=== PATIENT | male | born 1935 | race Caucasian/White ===

== ENCOUNTER 2023-04-14 20:11 | Inpatient (IN) ==
[2023-04-14 21:47] LABS: Albumin Level 3.6 gm/dl (3.4-5.0); Bilirubin,Total 2.1 mg/dl (0.2-1.0); Calcium 9.4 mg/dl (8.6-10.3); Creatinine Clr Calc Pharmacy 85.4 ml/min; Est GFR (African American) 97.7 ml/min; Est GFR (Non-African American) 84.3 ml/min; Globulin 3.5 gm/dl (2.5-4.0); Potassium 4.4 mmol/L (3.5-5.1); Total Protein 7.1 gm/dl (6.0-8.3)
[2023-04-14 21:55] LABS: Magnesium 2.3 mg/dl (1.7-2.4); Phosphorus 3.5 mg/dl (2.5-4.9)
[2023-04-14 22:11] LABS: Thyroid Stimulating Hormone 2.239 uIu/ml (0.300-4.500)
[2023-04-14 22:17] LABS: Basophils # (auto) 0.04 K/uL (0.00-0.20); Basophils % (auto) 0.6 %; Eosinophils # (auto) 0.08 K/uL (0.00-0.50); Eosinophils % (auto) 1.1 %; Hematocrit (blood only) 51.5 % (42.0-52.0); Hemoglobin 16.6 g/dl (14.0-18.0); Immature Granulocytes # (auto) 0.02 K/uL (0.01-0.20); Immature Granulocytes % (auto) 0.3 %; Lymphocytes # (auto) 0.81 K/uL (1.20-3.40); Lymphocytes % (auto) 11.4 %; Mean Corpuscular Hemoglobin 28.7 pg (25.0-34.0); Mean Corpuscular Hgb Conc 32.2 g/dL (32.0-36.0); Mean Corpuscular Volume 89.1 fL (80.0-100.0); Monocytes # (auto) 0.67 K/uL (0.11-0.59); Monocytes % (auto) 9.4 %; Neutrophils % (auto) 77.2 %; Platelet Count 150 K/uL (130-400); RDW Coefficient of Variation 15.4 % (11.5-14.5); RDW Standard Deviation 49.7 fL (36.4-46.3); Red Blood Count 5.78 M/uL (4.70-6.10); White Blood Count 7.12 K/ul (4.8-10.8)
--- NOTE | 2023-04-14 22:24 | Emergency Department Note ---
Impression & Plan Bilateral cellulitis of lower leg, Bullous dermatitis, Edema due to hypervolemia, Edema of scrotum, Edema of penis, CHF (congestive heart failure), Pleural effusion ED Provider Note NAME: LEVY QUINONEZ AGE: 87 SEX: M ARRIVES VIA: Walk-In INFORMANT: Patient ED PROVIDER(S): Pérez Suresh MD CHIEF COMPLAINT: Edema PLAN: Disposition: Admit MEDICAL DECISION MAKING: The patient is a pleasant 87-year-old gentleman with a past medical history of permanent atrial fibrillation not on anticoagulation due to history of rectal bleeding, hypertension, peripheral vascular disease, diastolic CHF, hyperlipidemia, chronic severe bilateral lower extremity lymphedema who presents to the emergency department via walk-in for evaluation of worsening fluid retention in bilateral lower legs where he noticed today that large blisters acutely formed on his lower legs. He reports that his leg swelling has progressively been worsening over the past several months and has been severe for many years. He reports he has been taking his medications as prescribed. He reports he does live alone. He reports that swelling in his penis and scrotum are also severe but feels as though this may have improved from even last week. He reports mild increased shortness of breath and was hypoxic and placed on 3 L nasal cannula by nursing. On my evaluation patient is chronically ill-appearing but no distress, afebrile with stable vital signs. He appears significantly hypervolemic with 3+ bilateral lower extremity pitting edema with mild-moderate erythema and warmth with large anterior pretibial bilateral bullae measuring approximately 15 x 7 cm with clear serous fluid noted within the bullae. Patient has severe edema of his penis and scrotum without significant erythema warmth or tenderness. There is no crepitus. He has severe anasarca of his abdomen which is nontender. He has diminished breath sounds of bilateral lower lung calderon. EKG without overt acute ischemia. WBC, H/H and platelets within normal limits. Chemistry without metabolic acidosis. Lactic acid 1.1, within normal limits. Total bilirubin 2.1, nonspecific and LFTs otherwise normal. High-sensitivity troponin 12.4, within normal limits. BNP is elevated to 50 consistent with the patient's hypervolemia. Procalcitonin is undetectable. TSH within normal limits. Respiratory BioFire was negative. CTA of the chest was negative for pulmonary embolism though note is made of bilateral pleural effusions. Suspected compressive atelectasis seen though pneumonia is not excluded. CT of the abdomen pelvis demonstrates the patient's severe scrotal and penile edema without evidence of gas. Prostate is severely enlarged measuring 5.2 cm. Patient was treated with empiric Zosyn and daptomycin for bilateral lower extremity cellulitis in addition to treatment for his hypervolemia and bolus lymphedema with IV Lasix. Rodney catheter was placed due to need for aggressive diuresis and protection of already fragile skin. Case was discussed with [facility] who will evaluate the patient for admission. Triage Nursing notes reviewed and agree them. Prior/external medical records reviewed Vital Signs: reviewed Differential diagnosis: Cellulitis, abscess, MRSA infection, DVT, necrotizing fasciitis, dermatitis, drug eruption, allergic reaction, as well as other pathologies. ER treatment provided: See below. Diagnostics interpreted by me: ECG: Atrial fibrillation 96 bpm, no ectopy, no overt ST elevation or depression. Cardiac Monitoring: An order for continuous cardiac monitoring was placed and demonstrated Atrial fibrillation 96 bpm, no ectopy. Laboratory studies: See below Imaging studies: See below Consultation(s): Case was discussed with [facility] who will evaluate the patient for admission. HPI: The patient is a pleasant 87-year-old gentleman with a past medical history of permanent atrial fibrillation not on anticoagulation due to history of rectal bleeding, hypertension, peripheral vascular disease, diastolic CHF, hyperlipidemia, chronic severe bilateral lower extremity lymphedema who presents to the emergency department via walk-in for evaluation of worsening fluid retention in bilateral lower legs where he noticed today that large blisters acutely formed on his lower legs. He reports that his leg swelling has progressively been worsening over the past several months and has been severe for many years. He reports he has been taking his medications as prescribed. He reports he does live alone. He reports that swelling in his penis and scrotum are also severe but feels as though this may have improved from even last week. He reports mild increased shortness of breath and was hypoxic and placed on 3 L nasal cannula by nursing. ROS: See above HPI for pertinent positives & negatives. A total of 10 systems reviewed and were otherwise negative. VITALS:See Below PHYSICAL EXAMINATION: GENERAL: Awake, alert, chronically ill-appearing, in no distress, BMI 32.8. HENT: Normocephalic, atraumatic. Oropharynx unremarkable. EYES: Normal conjunctiva. Sclera non-icteric. NECK: Supple. No nuchal rigidity. FROM. No JVD. RESPIRATORY: Diminished breath sounds of bilateral lower lung calderon. CARDIAC: Regular rate, irregular rhythm. Extremities warm and well perfused. Pulses equal. ABDOMEN: Soft, non-distended. No tenderness to palpation. No rebound or guarding. Severe anasarca of his abdomen which is nontender. : Severe edema of his penis and scrotum without significant erythema warmth or tenderness. There is no crepitus. MUSCULOSKELETAL: Chest examination reveals no tenderness. The back is symmetrical on inspection without obvious abnormality. There is no CVA tenderness to palpation. No joint edema. LOWER EXTREMITIES: 3+ bilateral lower extremity pitting edema with mild-moderate erythema and warmth with large anterior pretibial bilateral bullae measuring approximately 15 x 7 cm with clear serous fluid noted within the bullae. NEURO: Normal sensorium. No sensory or motor deficits noted. SKIN: No jaundice noted. Pérez Suresh MD Past Med/Surg History Medical History Lymphedema Atrial fibrillation CHF (congestive heart failure) Hypertension Social History Smoking Status: Former smoker Preferred Language: [place] Feels Safe at Home: Yes Allergies Allergies Allergy/AdvReac Type Severity Reaction Status Date / Time adhesive tape Allergy Unknown skin Verified 04/15/23 02:10 irritation nutmeg oil (Myristica seed Allergy Unknown Unknown Verified 04/15/23 02:10 oil) lisinopril AdvReac Unknown cough Verified 12/24/14 06:28 UNKNOWN BP MEDICATION Allergy Unknown rash at Uncoded 03/18/14 11:52 ankles Home Meds Home Medications Medication Instructions Recorded Confirmed aspirin 81 mg tablet,delayed 81 mg PO DAILY 04/15/23 04/15/23 release atorvastatin 20 mg tablet 20 mg PO QAM 04/15/23 04/15/23 empagliflozin 25 mg tablet 25 mg PO QAM 04/15/23 04/15/23 (Jardiance) furosemide 20 mg tablet 40 mg PO QAM 04/15/23 04/15/23 metoprolol succinate 25 mg 25 mg PO QAM 04/15/23 04/15/23 tablet,extended release 24 hr silver sulfadiazine 1 % topical 1 applic topical DAILY 04/15/23 04/15/23 cream (SSD) tamsulosin 0.4 mg capsule 0.4 mg PO QAM 04/15/23 04/15/23 Results & Data (ED) Vital Signs Vital Signs - 24 hr 04/14/23 20:17 04/14/23 20:25 04/14/23 21:46 Temperature 36.9 C Temperature Source Temporal Artery Scan Pulse Rate 100 H 108 H Pulse Rate from SpO2 Sensor 111 H Respiratory Rate 16 20 Respiratory Effort / Characteristics Respiratory Depth Blood Pressure 150/92 H Blood Pressure Mean 111 Pulse Oximetry 87 L 90 100 Oxygen Delivery Method Room Air Nasal Cannula Oxygen Flow Rate 3 Sepsis Recent Fever Within 48 Hours No Sepsis New/Unexplained Change in Mental Status No Sepsis Action Taken by Nursing No Action Required 04/14/23 21:48 04/14/23 21:50 04/14/23 22:00 Temperature Temperature Source Pulse Rate 99 H 96 H 85 Pulse Rate from SpO2 Sensor 117 H 102 H Respiratory Rate 18 18 Respiratory Effort / Characteristics Respiratory Depth Blood Pressure Blood Pressure Mean Pulse Oximetry 100 100 Oxygen Delivery Method Oxygen Flow Rate Sepsis Recent Fever Within 48 Hours Sepsis New/Unexplained Change in Mental Status Sepsis Action Taken by Nursing 04/14/23 22:00 04/14/23 22:10 04/14/23 22:20 Temperature Temperature Source Pulse Rate 89 88 Pulse Rate from SpO2 Sensor 109 H 102 H Respiratory Rate 24 23 Respiratory Effort / Characteristics Respiratory Depth Blood Pressure 142/106 H Blood Pressure Mean 108 Pulse Oximetry 99 100 Oxygen Delivery Method Oxygen Flow Rate Sepsis Recent Fever Within 48 Hours Sepsis New/Unexplained Change in Mental Status Sepsis Action Taken by Nursing 04/14/23 22:30 04/14/23 22:30 04/14/23 22:40 Temperature Temperature Source Pulse Rate 115 H 93 H Pulse Rate from SpO2 Sensor 110 H 100 H Respiratory Rate 21 21 Respiratory Effort / Characteristics Respiratory Depth Blood Pressure 158/104 H Blood Pressure Mean 110 Pulse Oximetry 100 97 Oxygen Delivery Method Oxygen Flow Rate Sepsis Recent Fever Within 48 Hours Sepsis New/Unexplained Change in Mental Status Sepsis Action Taken by Nursing 04/14/23 22:50 04/14/23 23:00 04/14/23 23:00 Temperature Temperature Source Pulse Rate 109 H 99 H Pulse Rate from SpO2 Sensor 107 H 98 H Respiratory Rate 23 22 Respiratory Effort / Characteristics Respiratory Depth Blood Pressure 144/103 H Blood Pressure Mean 116 Pulse Oximetry 100 100 Oxygen Delivery Method Oxygen Flow Rate Sepsis Recent Fever Within 48 Hours Sepsis New/Unexplained Change in Mental Status Sepsis Action Taken by Nursing 04/14/23 23:10 04/14/23 23:20 04/14/23 23:30 Temperature Temperature Source Pulse Rate 90 96 H 86 Pulse Rate from SpO2 Sensor 98 H 102 H 93 H Respiratory Rate 25 H 23 21 Respiratory Effort / Characteristics Respiratory Depth Blood Pressure Blood Pressure Mean Pulse Oximetry 100 100 100 Oxygen Delivery Method Oxygen Flow Rate Sepsis Recent Fever Within 48 Hours Sepsis New/Unexplained Change in Mental Status Sepsis Action Taken by Nursing 04/14/23 23:30 04/14/23 23:40 04/14/23 23:50 Temperature Temperature Source Pulse Rate 99 H 98 H Pulse Rate from SpO2 Sensor 100 H Respiratory Rate 24 24 Respiratory Effort / Characteristics Respiratory Depth Blood Pressure 151/97 H Blood Pressure Mean 103 Pulse Oximetry 100 Oxygen Delivery Method Oxygen Flow Rate Sepsis Recent Fever Within 48 Hours Sepsis New/Unexplained Change in Mental Status Sepsis Action Taken by Nursing 04/15/23 00:18 04/15/23 00:20 04/15/23 00:20 Temperature Temperature Source Pulse Rate 88 Pulse Rate from SpO2 Sensor 93 H 87 Respiratory Rate 21 Respiratory Effort / Characteristics Respiratory Depth Blood Pressure 147/107 H Blood Pressure Mean 123 Pulse Oximetry 93 94 Oxygen Delivery Method Oxygen Flow Rate Sepsis Recent Fever Within 48 Hours Sepsis New/Unexplained Change in Mental Status Sepsis Action Taken by Nursing 04/15/23 00:30 04/15/23 00:40 04/15/23 00:50 Temperature Temperature Source Pulse Rate 109 H 103 H 90 Pulse Rate from SpO2 Sensor 95 H 110 H 94 H Respiratory Rate 34 H 29 H 34 H Respiratory Effort / Characteristics Respiratory Depth Blood Pressure Blood Pressure Mean Pulse Oximetry 98 98 95 Oxygen Delivery Method Oxygen Flow Rate Sepsis Recent Fever Within 48 Hours Sepsis New/Unexplained Change in Mental Status Sepsis Action Taken by Nursing 04/15/23 01:00 04/15/23 01:01 04/15/23 01:10 Temperature Temperature Source Pulse Rate 85 90 98 H Pulse Rate from SpO2 Sensor Respiratory Rate 33 H 28 H 20 Respiratory Effort / Characteristics Respiratory Depth Blood Pressure Blood Pressure Mean Pulse Oximetry Oxygen Delivery Method Oxygen Flow Rate Sepsis Recent Fever Within 48 Hours Sepsis New/Unexplained Change in Mental Status Sepsis Action Taken by Nursing 04/15/23 01:20 04/15/23 01:30 04/15/23 01:40 Temperature Temperature Source Pulse Rate 99 H 107 H Pulse Rate from SpO2 Sensor Respiratory Rate 21 20 Respiratory Effort / Characteristics Respiratory Depth Blood Pressure 136/88 Blood Pressure Mean 103 Pulse Oximetry Oxygen Delivery Method Oxygen Flow Rate Sepsis Recent Fever Within 48 Hours Sepsis New/Unexplained Change in Mental Status Sepsis Action Taken by Nursing 04/15/23 01:40 04/15/23 01:44 04/15/23 01:58 Temperature Temperature Source Pulse Rate 100 H 99 H Pulse Rate from SpO2 Sensor 104 H 101 H Respiratory Rate 21 21 Respiratory Effort / Characteristics Respiratory Depth Blood Pressure Blood Pressure Mean Pulse Oximetry 94 93 Oxygen Delivery Method Oxygen Flow Rate Sepsis Recent Fever Within 48 Hours Sepsis New/Unexplained Change in Mental Status Sepsis Action Taken by Nursing 04/15/23 02:00 04/15/23 02:00 04/15/23 02:10 Temperature Temperature Source Pulse Rate 120 H Pulse Rate from SpO2 Sensor 101 H Respiratory Rate 22 21 Respiratory Effort / Characteristics Non-Labored Respiratory Depth Normal Blood Pressure Blood Pressure Mean Pulse Oximetry 94 Oxygen Delivery Method Oxygen Flow Rate Sepsis Recent Fever Within 48 Hours Sepsis New/Unexplained Change in Mental Status Sepsis Action Taken by Nursing Laboratory Data Attestation: I reviewed the patient's lab results. 04/15/23 04:47 04/15/23 04:47 Lab Results 04/14/23 04/14/23 04/14/23 Range/Units 21:15 22:06 23:57 WBC 7.12 (4.8-10.8) K/ul RBC 5.78 (4.70-6.10) M/uL Hgb 16.6 (14.0-18.0) g/dl Hct 51.5 (42.0-52.0) % MCV 89.1 (80.0-100.0) fL MCH 28.7 (25.0-34.0) pg MCHC 32.2 (32.0-36.0) g/dL RDW Std Deviation 49.7 H (36.4-46.3) fL RDW Coeff of Ella 15.4 H (11.5-14.5) % Plt Count 150 (130-400) K/uL MPV 10.0 (9.4-12.4) fL Immature Gran % (Auto) 0.3 % Neut % (Auto) 77.2 % Lymph % (Auto) 11.4 % Taliaferro % (Auto) 9.4 % Eos % (Auto) 1.1 % Baso % (Auto) 0.6 % Neut # (Auto) 5.50 (1.40-6.50) K/uL Lymph # (Auto) 0.81 L (1.20-3.40) K/uL Taliaferro # (Auto) 0.67 H (0.11-0.59) K/uL Eos # (Auto) 0.08 (0.00-0.50) K/uL Baso # (Auto) 0.04 (0.00-0.20) K/uL Immature Gran # (Auto) 0.02 (0.01-0.20) K/uL Sodium 139 (136-145) mmol/L Potassium 4.4 (3.5-5.1) mmol/L Chloride 98 (98-107) mmol/L Carbon Dioxide 36 H (21-32) mmol/L Anion Gap 5 (3-11) BUN 28 H (6-23) mg/dl Creatinine 0.70 (0.6-1.4) mg/dl Est Cr Clr Drug Dosing 85.4 ml/min Est GFR ( Amer) 97.7 ml/min Est GFR (Non-Af Amer) 84.3 ml/min BUN/Creatinine Ratio 40.0 H (10-20) Glucose 103 H (70-99(Fasting)) mg/dl Lactate 1.1 (0.4-2.0) mmol/L Calcium 9.4 (8.6-10.3) mg/dl Phosphorus 3.5 (2.5-4.9) mg/dl Magnesium 2.3 (1.7-2.4) mg/dl Total Bilirubin 2.1 H (0.2-1.0) mg/dl AST 19 (13-39) U/L ALT 14 (7-52) U/L Alkaline Phosphatase 103 (34-104) U/L Troponin I High Sens 12.4 (0-20) pg/ml B-Natriuretic Peptide 250 H (0-100) pg/ml Total Protein 7.1 (6.0-8.3) gm/dl Albumin 3.6 (3.4-5.0) gm/dl Globulin 3.5 (2.5-4.0) gm/dl Albumin/Globulin Ratio 1.0 (0.9-2) Procalcitonin < 0.05 (0-0.5) ng/ml TSH 2.239 (0.300-4.500) uIu/ml Adenovirus (PCR) Not Detected (NotDetected) B. pertussis DNA (PCR) Not Detected (NotDetected) B.parapertussis DNA PCR Not Detected (NotDetected) C. pneumoniae DNA (PCR) Not Detected (NotDetected) Coronavirus OC43 (PCR) Not Detected (NotDetected) Coronavirus HKU1 (PCR) Not Detected (NotDetected) Coronavirus 229E (PCR) Not Detected (NotDetected) SARS-CoV-2 (PCR) Not Detected (NotDetected) Coronavirus NL63 (PCR) Not Detected (NotDetected) Human Metapneumovir PCR Not Detected (NotDetected) Influenza Type A (PCR) Not Detected (NotDetected) Influenza Type B (PCR) Not Detected (NotDetected) M. pneumoniae (PCR) Not Detected (NotDetected) Parainfluenza 1 (PCR) Not Detected (NotDetected) Parainfluenza 2 (PCR) Not Detected (NotDetected) Parainfluenza 3 (PCR) Not Detected (NotDetected) Parainfluenza 4 (PCR) Not Detected (NotDetected) RSV (PCR) Not Detected (NotDetected) Entero/Rhino (PCR) Not Detected (NotDetected) Administered Medications Discontinued Medications Furosemide (Furosemide 40 Mg/4 Ml Vial) 40 mg IV ONE ONE Stop: 04/14/23 23:36 Last Admin: 04/15/23 00:19 Dose: 40 mg Documented By: ISAAC Piperacillin Sod/Tazobactam (Sod 4.5 gm/ Dextrose) 100 mls @ 200 mls/hr IV NOW ONE; Protocol Stop: 04/14/23 23:48 Last Infusion: 04/15/23 01:00 Dose: Infused Documented By: Admin: 04/15/23 00:22 Dose: 200 mls/hr Documented By: ISAAC Daptomycin 425 mg/ Syringe 8.5 mls @ 4.25 mls/min IV NOW STA; Protocol Stop: 04/14/23 23:20 Last Admin: 04/15/23 00:25 Dose: 4.25 mls/min Documented By: ISAAC Doxycycline Hyclate 100 mg/ (Dextrose) 100 mls @ 50 mls/hr IV NOW STA Stop: 04/15/23 04:19 Last Admin: 04/15/23 03:00 Dose: 50 mls/hr Documented By: MADISON Ioversol (Optiray 320 125ml) 125 ml IV ONCE ONE Stop: 04/15/23 00:18 Last Admin: 04/15/23 00:17 Dose: 117 ml Documented By: LUCRECIA Ipratropium Sparks (Ipratropium Sparks Neb Soln 0.02% 0.5mg/2.5ml Vial) 0.5 mg INH NOW STA Stop: 04/15/23 02:07 Last Admin: 04/15/23 03:07 Dose: 0.5 mg Documented By: MADISON Levalbuterol HCl (Levalbuterol 1.25 Mg/3 Ml Neb) 1.25 mg NEB NOW STA Stop: 04/15/23 02:07 Last Admin: 04/15/23 03:07 Dose: 1.25 mg Documented By: MADISON Imaging Data Radiologist's Impression: Abdomen/Pelvis CT 04/14/23 23:17 Exam(s): CT ABDOMEN + PELVIS With Contrast IV Amt: 117 ml optiray 320 EXAM: CT Abdomen and Pelvis With Intravenous Contrast CLINICAL HISTORY: Reason for exam: abd pain, edema (include entire scrotum). TECHNIQUE: Axial computed tomography images of the abdomen and pelvis with intravenous contrast. Automated exposure control was utilized for the study. A dose lowering technique was utilized adhering to the principles of ALARA. CONTRAST: Patient received 117 ml optiray 320 of IV contrast COMPARISON: No relevant prior studies available. FINDINGS: Lung bases: Referred to the concomitant chest CT for the lower lung calderon. No consolidation. ABDOMEN: Liver: Unremarkable. No mass. Gallbladder and bile ducts: Unremarkable. No calcified stones. No ductal dilation. Pancreas: Unremarkable. No mass. No ductal dilation. Spleen: Unremarkable. No splenomegaly. Adrenals: Unremarkable. No mass. Kidneys and ureters: Atrophy of the kidneys. No hydronephrosis or delayed nephrogram. Stomach and bowel: Diverticulosis, without acute diverticulitis. No small bowel obstruction. No free intraperitoneal air. PELVIS: Appendix: No findings to suggest acute appendicitis. Bladder: Wall thickening of the urinary bladder, cord of UTI. Urinalysis recommended. Reproductive: Large prostate gland measures 5.2 cm. Severe scrotal and penile edema. Correlate with physical exam. The need for testicular ultrasound should be determined clinically. ABDOMEN and PELVIS: Intraperitoneal space: Unremarkable. No free air. No significant fluid collection. Bones/joints: Degenerative changes of the spine. No acute fracture. No dislocation. Soft tissues: Anasarca. Vasculature: Atherosclerotic changes of the aorta. No abdominal aortic aneurysm. Lymph nodes: Unremarkable. No enlarged lymph nodes. IMPRESSION: 1. Wall thickening of the urinary bladder, cord of UTI. Urinalysis recommended. 2. Large prostate gland measures 5.2 cm. 3. Atrophy of the kidneys. No hydronephrosis or delayed nephrogram. 4. Anasarca. Severe scrotal and penile edema. Correlate with physical exam. The need for testicular ultrasound should be determined clinically. 5. Diverticulosis, without acute diverticulitis. No small bowel obstruction. No free intraperitoneal air. Electronically signed by: Hai Cope MD 04/15/23 00:42 AM Chest CTA 04/14/23 23:17 Exam(s): CTA CHEST IV Amt: 117 ml optiray 320 EXAM: CT Angiography Chest With Intravenous Contrast CLINICAL HISTORY: Reason for exam: hypoxia, BLE edema, r/o PE. TECHNIQUE: Axial computed tomographic angiography images of the chest with intravenous contrast. Automated exposure control was utilized for the study. A dose lowering technique was utilized adhering to the principles of ALARA. MIP reconstructed images were created and reviewed. COMPARISON: No relevant prior studies available. FINDINGS: Pulmonary arteries: No acute pulmonary embolism. Aorta: Atherosclerotic changes of the aorta. No thoracic aortic aneurysm. Lungs: See below. Pleural space: Moderate bilateral pleural effusions with subjacent airspace consolidation, likely compressive atelectasis from the effusions. Aspiration pneumonia not excluded. Heart: Cardiomegaly. No significant pericardial effusion. No evidence of RV dysfunction. Bones/joints: Degenerative changes of the spine. No acute fracture. No dislocation. Soft tissues: Anasarca. Lymph nodes: Unremarkable. No enlarged lymph nodes. IMPRESSION: 1. No acute pulmonary embolism. 2. Moderate bilateral pleural effusions with subjacent airspace consolidation, likely compressive atelectasis from the effusions. Aspiration pneumonia not excluded. Electronically signed by: Hai Cope MD 04/15/23 00:41 AM Discharge Plan Visit Data Chief Complaint: Swelling/Edema to Extremity Stated Complaint: CONGESTIVE HEART FAILURE,EDEMA TO LEGS/FEET/PENIS ED Provider: Pérez Suresh Discharge Problem: Bilateral cellulitis of lower leg, Bullous dermatitis, Edema due to hypervolemia, Edema of scrotum, Edema of penis, CHF (congestive heart failure), Pleural effusion Patient Disposition: Admitted As Inpatient Discharge Instructions Interventions: ED Discharge Assessment Last Done: 04/15/23 04:32 Discharge Problem: CHF (congestive heart failure) Qualifiers: Heart failure type: unspecified Heart failure chronicity: acute on chronic Q ualified Code(s): I50.9 - Heart failure, unspecified
[2023-04-14 23:17] LABS: Adenovirus PCR Not Detected (NotDetected); Bordetella parapertussis PCR Not Detected (NotDetected); Bordetella pertussis PCR Not Detected (NotDetected); Chlamydia pneumoniae PCR Not Detected (NotDetected); Coronavirus 229E PCR Not Detected (NotDetected); Coronavirus CoV-2 (COVID19)PCR Not Detected (NotDetected); Coronavirus HKU1 PCR Not Detected (NotDetected); Coronavirus NL63 PCR Not Detected (NotDetected); Coronavirus OC43PCR Not Detected (NotDetected); Human Metapneumovirus PCR Not Detected (NotDetected); Influenza A PCR Not Detected (NotDetected); Influenza B PCR Not Detected (NotDetected); Mycoplasma pneumoniae PCR Not Detected (NotDetected); Parainfluenza Virus 1 PCR Not Detected (NotDetected); Parainfluenza Virus 2 PCR Not Detected (NotDetected); Parainfluenza Virus 3 PCR Not Detected (NotDetected); Parainfluenza Virus 4 PCR Not Detected (NotDetected); Respiratory Syncytial VirusPCR Not Detected (NotDetected); Rhinovirus/Enterovirus PCR Not Detected (NotDetected)
[2023-04-15 00:15] LABS: Troponin I High Sensitivity 12.4 pg/ml (0-20)
[2023-04-15] MEDS: OPTIRAY 320 125ml IV ONE (00:17)
[2023-04-15] MEDS: FUROSEMIDE 40 MG/4 ML VIAL IV ONE ×2 (00:19→21:49)
[2023-04-15] MEDS: PIPERACILLIN/TAZOBACTAM 4.5 GM in DEXTROSE 5% MINI-B 100 ML IV ONE (00:22)
[2023-04-15] MEDS: DAPTOmycin 425 MG in SYRINGE 0 ML IV STA (00:25)
--- NOTE | 2023-04-15 00:41 | CT Scan Report ---
Exam(s): CTA CHEST IV Amt: 117 ml optiray 320 EXAM: CT Angiography Chest With Intravenous Contrast CLINICAL HISTORY: Reason for exam: hypoxia, BLE edema, r/o PE. TECHNIQUE: Axial computed tomographic angiography images of the chest with intravenous contrast. Automated exposure control was utilized for the study. A dose lowering technique was utilized adhering to the principles of ALARA. MIP reconstructed images were created and reviewed. COMPARISON: No relevant prior studies available. FINDINGS: Pulmonary arteries: No acute pulmonary embolism. Aorta: Atherosclerotic changes of the aorta. No thoracic aortic aneurysm. Lungs: See below. Pleural space: Moderate bilateral pleural effusions with subjacent airspace consolidation, likely compressive atelectasis from the effusions. Aspiration pneumonia not excluded. Heart: Cardiomegaly. No significant pericardial effusion. No evidence of RV dysfunction. Bones/joints: Degenerative changes of the spine. No acute fracture. No dislocation. Soft tissues: Anasarca. Lymph nodes: Unremarkable. No enlarged lymph nodes. IMPRESSION: 1. No acute pulmonary embolism. 2. Moderate bilateral pleural effusions with subjacent airspace consolidation, likely compressive atelectasis from the effusions. Aspiration pneumonia not excluded. Electronically signed by: Hai Cope MD 04/15/23 00:41 AM
--- NOTE | 2023-04-15 00:43 | CT Scan Report ---
Exam(s): CT ABDOMEN + PELVIS With Contrast IV Amt: 117 ml optiray 320 EXAM: CT Abdomen and Pelvis With Intravenous Contrast CLINICAL HISTORY: Reason for exam: abd pain, edema (include entire scrotum). TECHNIQUE: Axial computed tomography images of the abdomen and pelvis with intravenous contrast. Automated exposure control was utilized for the study. A dose lowering technique was utilized adhering to the principles of ALARA. CONTRAST: Patient received 117 ml optiray 320 of IV contrast COMPARISON: No relevant prior studies available. FINDINGS: Lung bases: Referred to the concomitant chest CT for the lower lung calderon. No consolidation. ABDOMEN: Liver: Unremarkable. No mass. Gallbladder and bile ducts: Unremarkable. No calcified stones. No ductal dilation. Pancreas: Unremarkable. No mass. No ductal dilation. Spleen: Unremarkable. No splenomegaly. Adrenals: Unremarkable. No mass. Kidneys and ureters: Atrophy of the kidneys. No hydronephrosis or delayed nephrogram. Stomach and bowel: Diverticulosis, without acute diverticulitis. No small bowel obstruction. No free intraperitoneal air. PELVIS: Appendix: No findings to suggest acute appendicitis. Bladder: Wall thickening of the urinary bladder, cord of UTI. Urinalysis recommended. Reproductive: Large prostate gland measures 5.2 cm. Severe scrotal and penile edema. Correlate with physical exam. The need for testicular ultrasound should be determined clinically. ABDOMEN and PELVIS: Intraperitoneal space: Unremarkable. No free air. No significant fluid collection. Bones/joints: Degenerative changes of the spine. No acute fracture. No dislocation. Soft tissues: Anasarca. Vasculature: Atherosclerotic changes of the aorta. No abdominal aortic aneurysm. Lymph nodes: Unremarkable. No enlarged lymph nodes. IMPRESSION: 1. Wall thickening of the urinary bladder, cord of UTI. Urinalysis recommended. 2. Large prostate gland measures 5.2 cm. 3. Atrophy of the kidneys. No hydronephrosis or delayed nephrogram. 4. Anasarca. Severe scrotal and penile edema. Correlate with physical exam. The need for testicular ultrasound should be determined clinically. 5. Diverticulosis, without acute diverticulitis. No small bowel obstruction. No free intraperitoneal air. Electronically signed by: Hai Cope MD 04/15/23 00:42 AM
[2023-04-15] MEDS ORDERED: XOPENEX/ATROVENT 1.25mg/0.5MG NEB COMBO NEB STA (02:06)
--- NOTE | 2023-04-15 02:07 | History & Physical Report ---
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 Lovenox subcu Full code Text document was generated using [employer] voice recognition software. It may contain grammatical or spelling errors. Kindly contact undersigned for clarification of any documentation item in question. History of Present Illness Chief Complaint: Worsening leg swelling/fluid retention Primary Care Provider: Dr. Doe History obtained from patient, family, and records. History somewhat limited from patient secondary to hearing impairment and chronic dysarthria. 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 Last confinement 2013 for new onset A-fib. Patient discharged on Xarelto which was later discontinued due to recurrent GI bleed. 1 week history of worsening bilateral leg swelling extending to abdomen and scrotum. No chest pain, no unusual cough symptoms. Coughing with meals/water intake if not careful. Increased SOB on exertion. Patient compliant with home meds and CPAP. Not sure about weight gain at home. Worsening bilateral leg swelling with note of blisters noted 2 days ago. No fever, no chills, no previous episodes. Patient brought to the ER for evaluation. O2 sats noted to be 80s upon arrival at the ER. Medical History as above Surgical History : Vascular procedure, appendectomy, cataract surgeries, tonsillectomy/adenoidectomy, hemorrhoidectomy Family History : DM Personal/Social history : Past tobacco abuse, occasional EtOH intake, retired meteorologist Allergies Allergy/AdvReac Type Severity Reaction Status Date / Time adhesive tape Allergy Unknown skin Verified 04/15/23 02:10 irritation nutmeg oil (Myristica seed Allergy Unknown Unknown Verified 04/15/23 02:10 oil) lisinopril AdvReac Unknown cough Verified 12/24/14 06:28 UNKNOWN BP MEDICATION Allergy Unknown rash at Uncoded 03/18/14 11:52 ankles Home Medications Medication Instructions Recorded Confirmed Type aspirin 81 mg tablet,delayed 81 mg PO DAILY 04/15/23 04/15/23 History release atorvastatin 20 mg tablet 20 mg PO QAM 04/15/23 04/15/23 History empagliflozin 25 mg tablet 25 mg PO QAM 04/15/23 04/15/23 History (Jardiance) furosemide 20 mg tablet 40 mg PO QAM 04/15/23 04/15/23 History metoprolol succinate 25 mg 25 mg PO QAM 04/15/23 04/15/23 History tablet,extended release 24 hr silver sulfadiazine 1 % topical 1 applic topical DAILY 04/15/23 04/15/23 History cream (SSD) tamsulosin 0.4 mg capsule 0.4 mg PO QAM 04/15/23 04/15/23 History Past Med/Surg History Medical History Lymphedema Atrial fibrillation CHF (congestive heart failure) Hypertension Social History Smoking Status: Former smoker Second Hand Exposure: No; Do You Dip or Chew Tobacco: No; Tobacco Cessation Education Requested by Patient: No Hx Alcohol Use: No Hx Substance Use: No Preferred Language: Nepali Communication Ability: Effective Machine Overhauler Required: Yes Beliefs That Will Affect Care: None Current Living Situation: Alone Feels Safe at Home: Yes Safety Concerns: Feels Safe At This Time Assistive Devices: Hearing Aid - Bilateral and Walker Review of Systems Review of Systems: Could not be reliably obtained secondary to hearing impairment/chronic dysarthria Physical Exam Physical Exam: GENERAL: Slightly uncomfortable, dysarthric (chronic as per patient), slightly hard of hearing, obese, minimal respiratory distress SKIN: Normal color, warm HEENT: [place] palpebral conjunctivae, no ptosis, dry buccal mucosa, nasal cannula in place NECK : Supple, short neck, no tenderness CHEST : Decreased breath sounds, no tenderness HEART : Irregular, tachycardic, no obvious murmurs ABDOMEN: Marked distention, nontender : Scrotal and penile swelling EXTREMITIES : Bilateral LE swelling with overlying bullous and blistered lesions minimal tenderness, no other conspicuous deformities noted NEUROLOGIC : Coherent, no facial asymmetry, dysarthric, slightly hard of hearing, gait and stance not assessed Results & Data Results & Data Vital Signs (Past 12 Hours) Vital Signs Temp Pulse Resp BP Pulse Ox O2 Del Method O2 Flow Rate 04/15/23 01:44 100 H 04/14/23 21:48 99 H 04/14/23 20:25 90 Nasal Cannula 3 04/14/23 20:17 36.9 C 100 H 16 150/92 H 87 L Room Air Laboratory Results Laboratory Results WBC 7.12 K/ul (4.8-10.8) 04/14/23 21:15 RBC 5.78 M/uL (4.70-6.10) 04/14/23 21:15 Hgb 16.6 g/dl (14.0-18.0) 04/14/23 21:15 Hct 51.5 % (42.0-52.0) 04/14/23 21:15 MCV 89.1 fL (80.0-100.0) 04/14/23 21:15 MCH 28.7 pg (25.0-34.0) 04/14/23 21:15 MCHC 32.2 g/dL (32.0-36.0) 04/14/23 21:15 RDW Std Deviation 49.7 fL (36.4-46.3) H 04/14/23 21:15 RDW Coeff of Ella 15.4 % (11.5-14.5) H 04/14/23 21:15 Plt Count 150 K/uL (130-400) 04/14/23 21:15 MPV 10.0 fL (9.4-12.4) 04/14/23 21:15 Immature Gran % (Auto) 0.3 % 04/14/23 21:15 Neut % (Auto) 77.2 % 04/14/23 21:15 Lymph % (Auto) 11.4 % 04/14/23 21:15 [place] % (Auto) 9.4 % 04/14/23 21:15 Eos % (Auto) 1.1 % 04/14/23 21:15 Baso % (Auto) 0.6 % 04/14/23 21:15 Neut # (Auto) 5.50 K/uL (1.40-6.50) 04/14/23 21:15 Lymph # (Auto) 0.81 K/uL (1.20-3.40) L 04/14/23 21:15 [place] # (Auto) 0.67 K/uL (0.11-0.59) H 04/14/23 21:15 Eos # (Auto) 0.08 K/uL (0.00-0.50) 04/14/23 21:15 Baso # (Auto) 0.04 K/uL (0.00-0.20) 04/14/23 21:15 Immature Gran # (Auto) 0.02 K/uL (0.01-0.20) 04/14/23 21:15 Sodium 139 mmol/L (136-145) 04/14/23 21:15 Potassium 4.4 mmol/L (3.5-5.1) 04/14/23 21:15 Chloride 98 mmol/L (98-107) 04/14/23 21:15 Carbon Dioxide 36 mmol/L (21-32) H 04/14/23 21:15 Anion Gap 5 (3-11) 04/14/23 21:15 BUN 28 mg/dl (6-23) H 04/14/23 21:15 Creatinine 0.70 mg/dl (0.6-1.4) 04/14/23 21:15 Est Cr Clr Drug Dosing 85.4 ml/min 04/14/23 21:15 Est GFR ( Amer) 97.7 ml/min 04/14/23 21:15 Est GFR (Non-Af Amer) 84.3 ml/min 04/14/23 21:15 BUN/Creatinine Ratio 40.0 (10-20) H 04/14/23 21:15 Glucose 103 mg/dl (70-99(Fasting)) H 04/14/23 21:15 Lactate 1.1 mmol/L (0.4-2.0) 04/14/23 23:57 Calcium 9.4 mg/dl (8.6-10.3) 04/14/23 21:15 Phosphorus 3.5 mg/dl (2.5-4.9) 04/14/23 21:15 Magnesium 2.3 mg/dl (1.7-2.4) 04/14/23 21:15 Total Bilirubin 2.1 mg/dl (0.2-1.0) H 04/14/23 21:15 AST 19 U/L (13-39) 04/14/23 21:15 ALT 14 U/L (7-52) 04/14/23 21:15 Alkaline Phosphatase 103 U/L (34-104) 04/14/23 21:15 Troponin I High Sens 12.4 pg/ml (0-20) 04/14/23 21:15 B-Natriuretic Peptide 250 pg/ml (0-100) H 04/14/23 21:15 Total Protein 7.1 gm/dl (6.0-8.3) 04/14/23 21:15 Albumin 3.6 gm/dl (3.4-5.0) 04/14/23 21:15 Globulin 3.5 gm/dl (2.5-4.0) 04/14/23 21:15 Albumin/Globulin Ratio 1.0 (0.9-2) 04/14/23 21:15 Procalcitonin < 0.05 ng/ml (0-0.5) 04/14/23 21:15 TSH 2.239 uIu/ml (0.300-4.500) 04/14/23 21:15 Adenovirus (PCR) Not Detected (NotDetected) 04/14/23 22:06 B. pertussis DNA (PCR) Not Detected (NotDetected) 04/14/23 22:06 B.parapertussis DNA PCR Not Detected (NotDetected) 04/14/23 22:06 C. pneumoniae DNA (PCR) Not Detected (NotDetected) 04/14/23 22:06 Coronavirus OC43 (PCR) Not Detected (NotDetected) 04/14/23 22:06 Coronavirus HKU1 (PCR) Not Detected (NotDetected) 04/14/23 22:06 Coronavirus 229E (PCR) Not Detected (NotDetected) 04/14/23 22:06 SARS-CoV-2 (PCR) Not Detected (NotDetected) 04/14/23 22:06 Coronavirus NL63 (PCR) Not Detected (NotDetected) 04/14/23 22:06 Human Metapneumovir PCR Not Detected (NotDetected) 04/14/23 22:06 Influenza Type A (PCR) Not Detected (NotDetected) 04/14/23 22:06 Influenza Type B (PCR) Not Detected (NotDetected) 04/14/23 22:06 M. pneumoniae (PCR) Not Detected (NotDetected) 04/14/23 22:06 Parainfluenza 1 (PCR) Not Detected (NotDetected) 04/14/23 22:06 Parainfluenza 2 (PCR) Not Detected (NotDetected) 04/14/23 22:06 Parainfluenza 3 (PCR) Not Detected (NotDetected) 04/14/23 22:06 Parainfluenza 4 (PCR) Not Detected (NotDetected) 04/14/23 22:06 RSV (PCR) Not Detected (NotDetected) 04/14/23 22:06 Entero/Rhino (PCR) Not Detected (NotDetected) 04/14/23 22:06 Impressions Abdomen/Pelvis CT 04/14/23 23:17 Exam(s): CT ABDOMEN + PELVIS With Contrast IV Amt: 117 ml optiray 320 EXAM: CT Abdomen and Pelvis With Intravenous Contrast CLINICAL HISTORY: Reason for exam: abd pain, edema (include entire scrotum). TECHNIQUE: Axial computed tomography images of the abdomen and pelvis with intravenous contrast. Automated exposure control was utilized for the study. A dose lowering technique was utilized adhering to the principles of ALARA. CONTRAST: Patient received 117 ml optiray 320 of IV contrast COMPARISON: No relevant prior studies available. FINDINGS: Lung bases: Referred to the concomitant chest CT for the lower lung calderon. No consolidation. ABDOMEN: Liver: Unremarkable. No mass. Gallbladder and bile ducts: Unremarkable. No calcified stones. No ductal dilation. Pancreas: Unremarkable. No mass. No ductal dilation. Spleen: Unremarkable. No splenomegaly. Adrenals: Unremarkable. No mass. Kidneys and ureters: Atrophy of the kidneys. No hydronephrosis or delayed nephrogram. Stomach and bowel: Diverticulosis, without acute diverticulitis. No small bowel obstruction. No free intraperitoneal air. PELVIS: Appendix: No findings to suggest acute appendicitis. Bladder: Wall thickening of the urinary bladder, cord of UTI. Urinalysis recommended. Reproductive: Large prostate gland measures 5.2 cm. Severe scrotal and penile edema. Correlate with physical exam. The need for testicular ultrasound should be determined clinically. ABDOMEN and PELVIS: Intraperitoneal space: Unremarkable. No free air. No significant fluid collection. Bones/joints: Degenerative changes of the spine. No acute fracture. No dislocation. Soft tissues: Anasarca. Vasculature: Atherosclerotic changes of the aorta. No abdominal aortic aneurysm. Lymph nodes: Unremarkable. No enlarged lymph nodes. IMPRESSION: 1. Wall thickening of the urinary bladder, cord of UTI. Urinalysis recommended. 2. Large prostate gland measures 5.2 cm. 3. Atrophy of the kidneys. No hydronephrosis or delayed nephrogram. 4. Anasarca. Severe scrotal and penile edema. Correlate with physical exam. The need for testicular ultrasound should be determined clinically. 5. Diverticulosis, without acute diverticulitis. No small bowel obstruction. No free intraperitoneal air. Electronically signed by: Hai Cope MD 04/15/23 00:42 AM Chest CTA 04/14/23 23:17 Exam(s): CTA CHEST IV Amt: 117 ml optiray 320 EXAM: CT Angiography Chest With Intravenous Contrast CLINICAL HISTORY: Reason for exam: hypoxia, BLE edema, r/o PE. TECHNIQUE: Axial computed tomographic angiography images of the chest with intravenous contrast. Automated exposure control was utilized for the study. A dose lowering technique was utilized adhering to the principles of ALARA. MIP reconstructed images were created and reviewed. COMPARISON: No relevant prior studies available. FINDINGS: Pulmonary arteries: No acute pulmonary embolism. Aorta: Atherosclerotic changes of the aorta. No thoracic aortic aneurysm. Lungs: See below. Pleural space: Moderate bilateral pleural effusions with subjacent airspace consolidation, likely compressive atelectasis from the effusions. Aspiration pneumonia not excluded. Heart: Cardiomegaly. No significant pericardial effusion. No evidence of RV dysfunction. Bones/joints: Degenerative changes of the spine. No acute fracture. No dislocation. Soft tissues: Anasarca. Lymph nodes: Unremarkable. No enlarged lymph nodes. IMPRESSION: 1. No acute pulmonary embolism. 2. Moderate bilateral pleural effusions with subjacent airspace consolidation, likely compressive atelectasis from the effusions. Aspiration pneumonia not excluded. Electronically signed by: Hai Cope MD 04/15/23 00:41 AM Diagnostic Findings EKG as per my interpretation : Rate 95, A-fib, LAD, LAFB, septal infarct, nonspecific T wave abnormalities
[2023-04-15] MEDS: DOXYCYCLINE HYCLATE 100 MG in DEXTROSE 5% MINI-B 100 ML IV STA (03:00)
[2023-04-15] MEDS: LEVALBUTEROL 1.25 MG/3 ML NEB NEB STA (03:07)
[2023-04-15] MEDS: IPRATROPIUM BROMIDE NEB SOLN 0.02% 0.5MG/2.5ML VIAL INH STA (03:07)
--- OUTSIDE RECORDS SUMMARY | 2023-04-15 03:26 | External Medical Summary | Summary of Care ---
Author Name Unknown Organization [facility] Address [address] [place] [address] Phone [phone] Care Team Providers Care Pants Cutter Name Role Phone Unavailable Primary Care Provider Unavailabl e Reason for Visit * Reason Onset Date Comments Sleep Apnea Device 02/02/2023 Encounter Details Date Type Department Care Team (Late st Contact Info) Description 02/02/2023 Telephone Sleep Lab, [facility] [address] [place] [address] Jess Knox, [address] [place] [place] [address] Sleep Apnea Device Allergies Active Allergy Reactions Criticality Noted Date Comments Manuel Inhibitors Cough 03/23/2014 Amlodipine Besylate Rash Low 11/15/2012 Caused edema and rash on ankles Nutmeg Oil (Myristica Oil) 5 Other Allergy (See Comments) Rash 06/14/2017 Wool Adhesive Tape 06/18/2014 documented as of this encounter (statuses as of 04/01/2023) Medications Medication Sig Dispensed Refills Start Date End Date Status Aspirin 81 MG TabletIndications:Fem oral artery aneurysm (HCC) Take 1 Tab by mouth daily. 30 Tab 11 04/15/2017 Active Furosemide 20 MG Oral Tablet (Lasix)Indications:Pe rsistent atrial fibrillation (HCC),Generalized edema,Chronic diastolic congestive heart failure (HCC),Dyslipidemia, goal LDL below 100,PVD (peripheral vascular disease) (HCC),HTN, goal below 140/90 Take 2 Tablets by mouth in the morning. 180 Tablet 3 09/24/2022 Active Metoprolol Succinate ER 25 MG Oral Tablet Extended Release 24 Hour (Toprol XL)Indications:Paroxy smal atrial fibrillation (HCC),HTN, goal below 140/90,PVD (peripheral vascular disease) (HCC) Take 1 Tablet by mouth in the morning. 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 45 Capsule 1 01/12/2023 Active Atorvastatin Calcium 20 MG Oral Tablet (Lipitor)Indications: PVD (peripheral vascular disease) (HCC) Take 1 Tablet by mouth in the morning. 90 Tablet 1 01/12/2023 Active Empagliflozin 25 MG Oral Tablet (Jardiance) Take 1 Tablet by mouth in the morning. 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 Paroxysmal atrial fibrillation 03/23/2014 MANUEL inhibitor intolerance 03/23/2014 HTN, goal below 140/90 11/15/2012 documented as of this encounter (statuses as of 04/01/2023) Resolved Problems Problem Noted Date Diagnosed Date Resolved Date Deep venous thrombosis of femoral vein 06/10/2017 06/10/2017 Effort syncope 03/06/2014 12/24/2016 Senile nuclear cataract 12/01/2007 02/0 05/2014 documented as of this encounter (statuses as of 04/01/2023) Immunizations Name Administration Dates Next Due COVID-19 mRNA, LNP-s, No Pre serve, 2-Dose Series (WedPics (deja mi)) 01/08/2021,06/04/2020,05/14/2020 COVID-19, LNP-s, No Preserve , Josr-sucrose, Ages 12+ (WedPics (deja mi)) 10/10/2021 Covid-19, Mrna, Lnp-s, Pf, B ivalent, 30 Mcg, IM, 12 yrs and above (Pfizer) 07/29/2022 Pneumococcal Conjugate Vacc, 13 Valent (Prevnar) 12/24/2016 Pneumococcal Polysaccharide PPV23 (Pneumovax) 07/14/2002 Season Influenza, Quad, PF, Adjuvanted, 65+ Yrs, IM (FLUAD) 01/01/2020 Seasonal Influenza, PF, 6 M & above, IM , (FluLaval or Fluzone) 12/27/2017 Seasonal Influenza, Quadriva lent Hd (Fluzone Hd) 12/16/2022,01/05/2022,01/02/2021 Seasonal Influenza, Quadriva lent, No Preserve, IM 12/23/2015 Seasonal Influenza, Split, I IV3, With Preserve, Inj 03/23/2014,03/02/2013 Seasonal Influenza, Trivalen t, Adjuvanted, 65+ yrs 12/30/2018 TDAP (age 10 and older)(Boostrix) 01/01/2020 TDAP (age 11 and older)(Adacel) 07/14/2009 Zoster Vaccine Recombinant (Shingrix) 10/19/2022 ,07/10/2022 documented as of this encounter Social History Tobacco Use Types Packs/Day Years Used Date Smoking Tobacco: Former Cigarettes 7 Q uit: 1958 Pipe Cigars Smokeless Tobacco: Never Comments:Smoked 1 -2 packs/d ay when smoking Alcohol Use Standard Drinks/Week Comments Yes 0 (1 standard drink = 0.6 oz pur e alcohol) glass of wine now and then PHQ-2 Answer Date Recorded PHQ Adult Total Score 0 01/05/2022 Hunger Vital Sign Answer Date Recorded Within the past 12 months, y ou worried that your food would run out before you got the money to buy more. Never true 10/20/19 23 Within the past 12 months, t he food you bought just didn't last and you didn't have money to get more. Never true 10/19/2022 Sex and Gender Information Value Date Recorded Sex Assigned at Male 12/23/2021 12:50 AM EDT Gender Identity Male 12/23/2021 12:50 AM EDT Sexual Orientation Straight 12/23/2021 12 :50 AM EDT Job Start Date Occupation Industry Not on file Not on file Not on file documented as of this encounter Functional Status Functional Status Response Date of Assess ment Are you deaf or do you have serious difficulty h earing? Yes 02/10/2014 Are you blind or do you have serious difficulty seeing, even when wearing glasses? No 02/10/2014 Do you have serious difficul ty walking or climbing stairs? (5 years old or older) No 02/10/2014 Do you have difficulty dress ing or bathing? (5 years old or older) No 02/10/2014 Because of a physical, menta l, or emotional condition, do you have difficulty doing errands alone such as visiting a doctor s office or shopping? (15 years old or older) No 02/11/20 14 Cognitive Status Response Date of Assessm ent Because of a physical, menta l, or emotional condition, do you have serious difficulty concentrating, remembering, or making decisions? (5 years old or older) No 02/10/2014 documented as of this encounter Miscellaneous Notes * Telephone Encounter - Rere Hallman RPSGT - 02/02/2023 2:41 AM EST Data downloaded, verified and scored. Physician notified that the OCST study is ready for review and interpretation. L out 8:18pm L on 3:08am PAULETTE 31.8 Low sat 69% HST ordered by Dr. Knox. Routed to Dr. Knox in [place]. ESS: 7 *Pulse ox tracing was in and out through most of the study. Obstructive apneas were able to be scored despite no oxygen desaturations. documented in this encounter Plan of Treatment Upcoming Encounters Date Type Department Care Team (Late st Contact Info) Description 05/28/2023 10:30 AM EST Procedure Only [facility] [address] [place] [phone] Grace Mcconnell DO [address] [place] [address] 05/28/2023 11:00 AM EST Procedure Only Endoscopy, [facility] [address] [place] [address] Grace Mcconnell DO [address] [place] [address] 07/09/2023 1:20 PM EDT Office Visit Family Practice [facility] [address] [place] [address] Ingris Rodriguez, DO [address] [place] [address] 07/19/2023 1:00 PM EDT Office Visit Cardiology, [facility] [address] [place] [address] Senait Rodriguez CRNP [address] [place] [address] 04/10/2024 2:00 PM EST Office Visit [facility]ermatology [facility] [address] [facility] [place] [address] Smith Pearson MD [address] [facility] [place] [address] Health Maintenance Due Date Last Done Comments COVID-19 Vaccine ( season) 2022 07/29/2022, 10/10/2021, 01/08/2021, Additional history exists Depression Screening 01/05/2023 01/05/2022 HbA1c 01/07/2024 01/06/2023, 06/21, 01/05/2022, Additional history exists Albumin/Creatinine Ratio 01/06/2026 023, 01/05/2022, 09/12/2013 DTaP,Tdap,and Td Vaccines (3 - Td or Tdap) 12/31/2029 01/01/2020, 07/14/2009 Pneumococcal Vaccine: 65+ Years Completed 12/24/2016, 07/14/2002, 10/29/1998 Zoster Vaccines Completed 10/19/2022, 06/21, 01/14/2012 Influenza Vaccine (FLU shot) Completed , 01/05/2022, 01/02/2021, Additional history exists GARDASIL-HPV IMMUNIZATION SERIES Aged Out No longer eligible based on patient's age to complete this topic Hepatitis B Aged Out No longer eligi ble based on patient's age to complete this topic MENINGOCOCCAL (MENACTRA/MENVEO) Aged Out No longer eligible based on patient's age to complete this topic documented as of this encounter Medical Devices Implanted Type Area Casting Machine Control Board Operator Device Identifier Shelf Expiration Date Model / Serial / Lot Lens 15.0 Sa60at - [id number] Implanted:Qty: 1 on 12/07/2007 at [facility] Right: Eye CLAUDE : SURGICAL 02/20/2012 SA60AT / [id number] / Lens 15.0 Sa60at - [id number] Implanted:Qty: 1 on 01/12/2008 at [facility] Left: Eye CLAUDE : SURGICAL 07/20/2012 SA60AT / [id number] / Stent Viab [id number] - [id number] Implanted:Qty: 1 on 06/09/2017 by Naresh Perry MD [place] [facility] Left: [employer] 10/12/2019 [id number] / / documented as of this encounter Advance Directives Latest Code Status on File Code Status Date Activated Date Inactivated Comments Full Code 06/09/2017 6:03 PM 06/10/2017 4:52 PM This order reflects the patients wishes and were consensually agreed upon. Code Status History Code Status Date Activated Date Inactivated Comments Full Code 02/10/2014 1:00 AM 02/11/2014 3:50 PM Thi s order reflects the patients wishes and were consensually agreed upon. Question Answer Comments Discussion of Advance Directives occurred with: Patient Does the patient have a Living Will? No Does the patient have Health Care Power of Rubber Tire Curer? No Full Code 01/12/2008 11:07 AM 01/12/2008 3:54 PM
--- OUTSIDE RECORDS SUMMARY | 2023-04-15 03:26 | External Medical Summary | Summary of Care ---
Author Name Unknown Organization [facility] Address [address] [facility] [place] [address] Phone [phone] Care Team Providers Care It Consulting Director Name Role Phone Unavailable Primary Care Provider Unavailabl e Reason for Visit * Reason Comments Skin Check Patient presents for his yearly FBSC. He states that he both his legs are swollen and red. They have been this way for 3 or 4 years. Its actually better right now.Hx: MMIS, AK, SK Encounter Details Date Type Department Care Team (Late st Contact Info) Description 03/18/2023 2:15 PM EST Office Visit Dermatology [facility] [place] [address] [facility] [place] [address] Smith Pearson MD [address] [facility] [place] [address] Actinic skin damage*; Hx of malignant melanoma; Scar; Skin neoplasm; Stasis dermatitis of both legs; Seborrheic keratoses Allergies Active Allergy Reactions Criticality Noted Date Comments Manuel Inhibitors Cough 03/23/2014 Amlodipine Besylate Rash Low 11/15/2012 Caused edema and rash on ankles Nutmeg Oil (Myristica Oil) 5 Other Allergy (See Comments) Rash 06/14/2017 Wool Adhesive Tape 06/18/2014 documented as of this encounter (statuses as of 03/20/2023) Medications Medication Sig Dispensed Refills Start Date End Date Status Aspirin 81 MG TabletIndications:F emoral artery aneurysm (HCC) Take 1 Tab by mouth daily. 30 Tab 11 04/15/2017 Active Furosemide 20 MG Oral Tablet (Lasix)Indications: Persistent atrial fibrillation (HCC),Generalized edema,Chronic diastolic congestive heart failure (HCC),Dyslipidemia, goal LDL below 100,PVD (peripheral vascular disease) (HCC),HTN, goal below 140/90 Take 2 Tablets by mouth in the morning. 180 Tablet 3 09/24/2022 Active Metoprolol Succinate ER 25 MG Oral Tablet Extended Release 24 Hour (Toprol XL)Indications:Paro xysmal atrial fibrillation (HCC),HTN, goal below 140/90,PVD (peripheral vascular disease) ([facility]) Take 1 Tablet by mouth in the morning. 90 Tablet 1 01/12/2023 Active Tamsulosin HCl 0.4 MG Oral Capsule (Flomax)Indications :BPH with obstruction/lower urinary tract symptoms Take 1 Capsule by mouth in the morning. 45 Capsule 1 01/12/2023 Active Atorvastatin Calcium 20 MG Oral Tablet (Lipitor)Indication s:PVD (peripheral vascular disease) ([facility]) Take 1 Tablet by mouth in the morning. 90 Tablet 1 01/12/2023 Active Empagliflozin 25 MG Oral Tablet (Jardiance) Take 1 Tablet by mouth in the morning. 90 Tablet 3 01/20/2023 Active Silver sulfADIAZINE 1 % External Cream (Silvadene)Indicati ons:Stasis dermatitis of both legs Apply to sores on lower legs daily after washing, apply compression stocking over 50 g 1 03/18/2023 Active documented as of this encounter (statuses as of 03/20/2023) Active Problems Problem Noted Date Diagnosed Date [...] as of this encounter (statuses as of 03/20/2023) Resolved Problems Problem Noted Date Diagnosed Date Resolved Date Deep venous thrombosis of femoral vein 06/10/2017 06/10/2017 Effort syncope 03/06/2014 12/24/2016 Senile nuclear cataract 12/01/2007 02/0 05/2014 documented as of this encounter (statuses as of 03/20/2023) Immunizations Name Administration Dates Next Due COVID-19 mRNA, LNP-s, No Pre serve, 2-Dose Series (FastCall) 01/08/2021,06/04/2020,05/14/2020 COVID-19, LNP-s, No Preserve , Josr-sucrose, Ages 12+ (Pfizer) 10/10/2021 Covid-19, Mrna, Lnp-s, Pf, B ivalent, [...] Smoking Tobacco: Former Cigarettes 7 Q uit: 9 Pipe Cigars Smokeless Tobacco: Never Comments:Smoked 1 [...] No 02/10/2014 documented as of this encounter Progress Notes * Smith Pearson MD - 03/18/2023 2:15 PM EST Chief Complaint Patient presents with Skin Check Patient presents for his yearly FBSC. He states that he both his legs are swollen and red. They have been this way for 3 or 4 years. Its actually better right now. Hx: MMIS, AK, SK Jett Fraser is a 87 year old male with history of malignant melanoma, seen today to be monitoredfor recurrence at previously treated sites and to be evaluated for the development of new lesions. Legs are swollen and red. Doing ok right now. Melanoma History: 2021 Melanoma In Situ epigastric area Additional Derm History: Actinic keratoses, stasis dermatitis Review of Systems: Complete review of systems performed with attention to potential metastatic disease Physical Examination: Constitutional: Elderly, but alert, oriented, pleasant Skin: Exam of the scalp, face, conjunctivae, oral mucosa, neck, chest, back, abdomen, and all four extremities is performed. All areas are normal except for the following findings. -There is a well-healed primary site without clinical evidence of local, satellite, or in-transit recurrence. Scattered on face, chest, back - diffuse mottled hypopigmented and hyperpigmented macules without significant irregularity. Associated telangiectasias At the trunk and extremities are several scattered hwang/brown hyperkeratotic stuck on appearing waxypapules. Right pre-auricular cheek - 1.5cm irregular brown patch, history of MIS. Favor lentigo Lower legs with significant edema and erythema, tense bullae ASSESSMENT and PLAN: History of Melanoma. -History was obtained regarding new or changing moles. -Complete physical skin exam performed. -Patient counseled on self-examination for new or changing moles. The signs and symptoms of skin cancer were reviewed and the patient was advised to practice sun protection and sun avoidance, use daily sunscreen (SPF > 30), and perform regular self-skin and lymph node exams on a monthly basis. I reviewed changes to watch for including changes in the A-B-C-D's,asymmetry of a lesion, changes in border, color or diameter as well as non healing lesions. I instructed the patient to call if any new lesions appear or current lesions change. Additional Problems: Scar. - Well healed. No evidence of disease recurrence. Chronic Actinic Damage - Discussed that skin changes are due to chronic sun exposure. - Daily sun protection recommended Seborrheic keratoses - The benign nature of these lesions was discussed with the patient and that no treatment is indicated today. Skin neoplasm(s) - Shave biopsy of the following lesion(s) Right pre-auricular cheek - 1.5cm irregular brown patch, history of MIS. Favor lentigo Procedure - Tangential biopsy of skin Biopsy by shave was recommended for the lesion(s) noted above to establish and confirm diagnosis. The procedure, risks, benefits, alternatives and expected outcomes were discussed with the patient and consent was obtained. Time out called. Patient identified, procedure verified, site(s) identified and verified. Patient and staff present in agreement. Area prepped with alcohol and anesthetized using 0.5% lidocaine with epinephrine at 1:200,000 concentration. Biopsy of lesion(s) performed. 20% AlCl and bandaging applied. Specimen(s) sent to pathology. Patient instructed in routine post-op care. Stasis dermatitis - emphasized importance of compression and elevation - emollients - silvadene to open wounds Follow up high priority melanoma clinic 12 months. Smith Pearson MD 03/17/2023, 10:19 AM CC: PCP: None documented in this encounter Nursing Notes * Arpita Bassett MED ASSIST - 03/18/2023 1:53 PM EST Patient identified by name and date of . Do you have any concerns about pain management for today's visit? No Living Will or Advance Directive for Health Care as noted on problem list. [facility] is a way you can talk to your provider online through e-mail. Would you like to sign up? I can activate it for you? ALREADY ACTIVE. Chief Complaint Patient presents with Skin Check Patient presents for his yearly FBSC. He states that he both his legs are swollen and red. They have been this way for 3 or 4 years. Its actually better right now. Hx: MMIS, AK, SK * Arpita Bassett MED ASSIST - 03/18/2023 1:49 PM EST Patient identified by name and date of . Do you have any concerns about pain management for today's visit? No Living Will or Advance Directive for Health Care as noted on problem list. [facility] is a way you can talk to your provider online through e-mail. Would you like to sign up? I can activate it for you? ALREADY ACTIVE documented in this encounter Plan of Treatment Upcoming Encounters Date Type Department Care Team (Late st Contact Info) Description 05/28/2023 10:30 AM EST Procedure Only Endoscopy, [facility] [address] [place] [address] Grace Mcconnell DO [address] [place] [address] 05/28/2023 11:00 AM EST Procedure Only Endoscopy, [facility] [address] [place] [address] Grace Mcconnell, DO [address] [place] [address] 07/09/2023 1:20 PM EDT Office Visit Family Practice [facility] [address] [place] [address] Ingris Rodriguez, DO [address] [place] [address] 07/19/2023 1:00 PM EDT Office Visit Cardiology, [facility] [address] [place] [address] Senait Rodriguez CRNP [address] [place] [address] 04/10/2024 2:00 PM EST Office Visit Dermatology [facility] [address] [facility] [place] [address] Smith Pearson MD [address] [facility] [place] [address] Health Maintenance Due Date Last Done Comments [...] this encounter Medical Devices Implanted Type Area Rotary Dryer Operator Device Identifier Shelf Expiration Date Model / Serial / Lot Lens 15.0 Sa60at - [id number] Implanted:Qty: 1 on 12/07/2007 at [facility] Right: Eye CLAUDE : SURGICAL 02/20/2012 SA60AT / [id number] / Lens 15.0 Sa60at - [id number] Implanted:Qty: 1 on 01/12/2008 at OR [facility] Left: Eye CLAUDE : SURGICAL 07/20/2012 SA60AT / [id number] / Stent Viab [id number] - [id number] Implanted:Qty: 1 on 06/09/2017 by Naresh Perry MD at [place] [facility] Left: [facility] [employer] 10/12/2019 [id number] / / documented as of this encounter Procedures Procedure Name Priority Date/Time Associated Diagnosis Comments SURGICAL PATHOLOGY Routine 03/18/2023 2: 12 PM EST Skin neoplasm documented in this encounter Results * SURGICAL PATHOLOGY (03/18/2023 2:12 PM EST) Final Diagnosis A. Skin, right preauricular cheek, shave: Seborrheic keratosis, pigmented 03/19/2023 12:48 PM EST LABORATORY C Clinical History See Order Comments 03/19/2023 12:48 PM EST LABORATORY [facility] Order Comments Right pre-auricular cheek - 1.5cm irregular brown patch, history of MIS. Favor lentigo 03/19/2023 12:48 PM EST LABORATORY [facility] Gross Description A. Skin. Received in formalin with a container labeled with "Jett Fraser", "[id number]", "1935" and " right preauricular cheek". Received is a 0.8 x 0.6 cm skin shave. The skin surface is hwang to brown mottled firm shiny and hair-bearing. The underlying tissue is inked. The specimen is bisected and submitted in cassette A1. Gross By: MR 03/19/2023 12:48 PM EST LABORATORY [facility] Sign Out Location Pathologist sign out performed at [facility] ([facility]), [address] [place] [id number]. 03/19/2023 12:48 PM EST LABORATORY [facility] Photographic images and diagrams represent live findings in this case; they are not intended to replace a complete review of the final diagnostic report. The following statement applies to Flow Cytometry, Histology, In situ Hybridization Assays and Molecular Genetics. This test was developed and performed at [facility] and its performance characteristics determined by [facility] [employer]. It has not been cleared or approved by the U.S. Food and Drug Administration. The FDA has determined that such clearance or approval is not necessary. This test is used for clinical purposes. It should not be regarded as investigational or for research. Special stains, including histochemical stains, and studies using immunologic and SYEDA methodology (where applicable) are performed with appropriate positive and negative control reactions. 03/19/2023 12:48 PM EST LABORATORY [facility] Tissue Skin structure / Unknown 03/18/2023 2:12 PM EST 03/18/2023 2:12 PM EST Comment:Right pre-auricular cheek - 1.5cm irregular brown patch, history of MIS. Favor lentigo Smith Pearson MD LAB PATHOLOGY ORDERABLES LABORATORY [address] [address] documented in this encounter Visit Diagnoses Diagnosis Actinic skin damage- Primary Other dermatitis due to solar radiation Hx of malignant melanoma Personal history of malignant melanoma of skin Scar Scar condition and fibrosis of skin Skin neoplasm Neoplasm of unspecified nature of bone, soft tissue, and skin Stasis dermatitis of both legs Varicose veins of lower extremities with inflammation Seborrheic keratoses documented in this encounter Advance Directives Latest Code Status [...] the patient have Health Care Power of Dynamo Tender? No Full Code 01/12/2008 11:07 AM 01/12/2008 3:54 PM
--- OUTSIDE RECORDS SUMMARY | 2023-04-15 03:26 | External Medical Summary | Summary of Care ---
Author Name Unknown Organization [facility] Address [address] [facility] [place] [address] Phone [phone] Care Team Providers Care Design Chief Name Role Phone Unavailable Primary Care Provider Unavailabl e Encounter Details Date Type Department Care Team (Late st Contact Info) Description 02/02/2023 Telephone Pulmonary Medicine, [facility] [address] [place] [address] Jess Knox DO [address] [place] [address] Allergies Active Allergy Reactions Criticality Noted Date Comments Manuel Inhibitors Cough 03/23/2014 Amlodipine Besylate Rash Low 11/15/2012 Caused edema and rash on ankles Nutmeg Oil (Myristica Oil) 5 Other Allergy (See Comments) Rash 06/14/2017 Wool Adhesive Tape 06/18/2014 documented as of this encounter (statuses as of 02/02/2023) Medications Medication Sig Dispensed Refills Start Date [...] as of this encounter (statuses as of 02/02/2023) Active Problems Problem Noted Date Diagnosed Date [...] as of this encounter (statuses as of 02/02/2023) Resolved Problems Problem Noted Date Diagnosed Date Resolved Date Deep venous thrombosis of femoral vein 06/10/2017 06/10/2017 Effort syncope 03/06/2014 12/24/2016 Senile nuclear cataract 12/01/2007 02/0 05/2014 documented as of this encounter (statuses as of 02/02/2023) Immunizations Name Administration Dates Next Due COVID-19 mRNA, LNP-s, No Pre serve, 2-Dose Series (Botanica Exotica) 01/08/2021,06/04/2020,05/14/2020 COVID-19, LNP-s, No Preserve , Josr-sucrose, Ages 12+ (Pfizer) 10/10/2021 Covid-19, Mrna, Lnp-s, Pf, B ivalent, 30 Mcg, IM, 12 yrs and above (Botanica Exotica) 07/29/2022 Pneumococcal Conjugate Vacc, 13 Valent (Prevnar) 12/24/2016 Pneumococcal Polysaccharide PPV23 (Pneumovax) 07/14/2002 SEASONAL INFLUENZA, PF, 6 M & Above, IM , (FLULAVAL or FLUZONE) 12/27/2017 Season Influenza, Quad, PF, Adjuvanted, 65+ Yrs, IM (FLUAD) 01/01/2020 Seasonal Influenza, Quadriva lent Hd (Fluzone Hd) [...] encounter Miscellaneous Notes * Telephone Encounter - Cristian Tadeo - 02/02/2023 10:06 AM EST Orders in 02/02 new cpap documented in this encounter Plan of Treatment Upcoming Encounters Date Type Department Care Team (Late st Contact Info) Description 03/18/2023 2:15 PM EST Office Visit Dermatology [facility] [address] [facility] [place] [address] Smith Pearson MD [address] [facility] [place] [address] 05/28/2023 10:45 AM EST [facility] [address] [place] [address] Radha Alcantar MD [address] [place] [address] 05/28/2023 11:15 AM EST Procedure Only Endoscopy, [facility] [place] [address] Radha Alcantar MD [address] [place] [address] 07/09/2023 1:20 PM EDT Office Visit [facility] [address] [place] [address] Ingris Rodriguez DO [address] [place] [address] 07/19/2023 1:00 PM EDT Office Visit Cardiology, [facility] [address] [place] [address] Senait Rodriguez CRNP [address] [place] [address] Health Maintenance Due Date Last Done Comments COVID-19 Vaccine ( season) 2022 07/29/2022, 10/10/2021, 01/08/2021, Additional history exists Depression Screening 01/05/2023 01/05/2022 HbA1c 01/07/2024 01/06/2023, 06/21, 01/05/2022, Additional history exists Albumin/Creatinine Ratio 01/06/2026 023, 01/05/2022, 09/12/2013 DTaP,Tdap,and Td Vaccines (3 - Td or Tdap) 12/31/2029 01/01/2020, 07/14/2009 Pneumococcal Vaccine: 65+ Years Completed 12/24/2016, 07/14/2002 Zoster Vaccines Completed 10/19/2022, 06/21, 01/14/2012 Influenza [...] this encounter Medical Devices Implanted Type Area Coding Educator Device Identifier Shelf Expiration Date Model / Serial / Lot Lens 15.0 Sa60at - [id number] Implanted:Qty: 1 on 12/07/2007 at [facility] Right: Eye CLAUDE : SURGICAL 02/20/2012 SA60AT / [id number] / Lens 15.0 Sa60at - [id number] Implanted:Qty: 1 on 01/12/2008 at OR [facility] Left: Eye CLAUDE : SURGICAL 07/20/2012 SA60AT / [id number] / Stent Viab [id number] - [id number] Implanted:Qty: 1 on 06/09/2017 by Naresh Perry MD at OR [facility] [place] Left: [facility] [employer] 10/12/2019 [id number] / / documented as of this encounter [...] the patient have Health Care Power of Rotor Winder? No Full Code 01/12/2008 11:07 AM 01/12/2008 3:54 PM
--- OUTSIDE RECORDS SUMMARY | 2023-04-15 03:27 | External Medical Summary ---
Author Name Unknown Address Unknown Organization [facility] [place] [address] [place] [address] Laboratory Report Ordering Provider Test Date Status TRACY BERGER 01/30/2023 08:12:56 Final Observation Date Value Abnormality Reference (Units ) Status BUN 01/30/2023 08:12:56 16 6-20 (mg/dL) Final Creatinine 01/30/2023 08:12:56 0.8 0.6-1.2 (mg/dL) Final Glomerular filtration rate/1.73 sq M.predicted [Volume Rate/Area] in Serum, Plasma or Blood by Creatinine-based formula (CKD-EPI) 01/30/2023 08:12:56 86 >=60 (mL/min) Final eGFR is calculated based on the CKD-EPI 2020 equation SODIUM 01/30/2023 08:12:56 145 135-146 (m mol/L) Final Potassium 01/30/2023 08:12:56 4.5 3.5-5.1 (m mol/L) Final Cl 01/30/2023 08:12:56 101 98-107 (mm ol/L) Final CO2 01/30/2023 08:12:56 33 Above high normal 22 -32 (mmol/L) Final Anion gap 01/30/2023 08:12:56 11 7-15 (mmol /L) Final Glucose 01/30/2023 08:12:56 111 70-120 (mg /dL) Final Calcium 01/30/2023 08:12:56 9.4 8.4-10.2 ( mg/dL) Final Performing Location [facility] [place] [address] [place] [address]
--- OUTSIDE RECORDS SUMMARY | 2023-04-15 03:27 | External Medical Summary | Summary of Care ---
Author Name Unknown Organization [facility] Address [address] [place] [facility] [place] [facility] [place] [address] Phone [phone] Care Team Providers Care Personnel Interviewer Name Role Phone Unavailable Primary Care Provider Unavailabl e Reason for Visit * Reason Onset Date Comments Patient Instructions 01/28/2023 Bowel prep Encounter Details Date Type Department Care Team (Late st Contact Info) Description 01/28/2023 Telephone OR [facility], Operating Room [facility] [address] [facility] [place] [phone] Nadira Huff, RN Patient Instructions (Bowel prep) Allergies Active Allergy Reactions Criticality Noted Date Comments Manuel Inhibitors Cough 03/23/2014 Amlodipine Besylate Rash Low 11/15/2012 Caused edema and rash on ankles Nutmeg Oil (Myristica Oil) 5 Other Allergy (See Comments) Rash 06/14/2017 Wool Adhesive Tape 06/18/2014 documented as of this encounter (statuses as of 01/28/2023) Medications Medication Sig Dispensed Refills Start Date [...] as of this encounter (statuses as of 01/28/2023) Active Problems Problem Noted Date Diagnosed Date [...] as of this encounter (statuses as of 01/28/2023) Resolved Problems Problem Noted Date Diagnosed Date Resolved Date Deep venous thrombosis of femoral vein 06/10/2017 06/10/2017 Effort syncope 03/06/2014 12/24/2016 Senile nuclear cataract 12/01/2007 02/0 05/2014 documented as of this encounter (statuses as of 01/28/2023) Immunizations Name Administration Dates Next Due COVID-19 mRNA, LNP-s, No Pre serve, 2-Dose Series (Kiva) 01/08/2021,06/04/2020,05/14/2020 COVID-19, LNP-s, No Preserve , Josr-sucrose, Ages 12+ (Pfizer) 10/10/2021 Covid-19, Mrna, Lnp-s, Pf, B ivalent, 30 Mcg, IM, 12 yrs and above (Kiva) 07/29/2022 Pneumococcal Conjugate Vacc, 13 Valent (Prevnar) [...] or making decisions? (5 years old or older No 02/10/2014 documented as of this encounter Plan of Treatment Upcoming Encounters Date Type Department Care Team (Latest Contact Info) Description 01/29/2023 10:00 AM EST PulmDiagnostic Sleep Lab [facility]rick Rivas [address] [place] [address] Rob Sleep Med Home Study [facility] [address] [place] [address] 02/02/2023 1:30 PM EST Hospital Encounter ENDO [facility], Endoscopy Room [facility] [address] [place] [phone] Lonnie Hillman MD [address] [place] [address] 02/02/2023 1:30 PM EST - 02/02/2023 2:30 PM EST Surgery ENDO [facility], Endoscopy Room [facility] [address] [place] [phone] Lonnie Hillman MD [address] [place] [address] COLONOSCOPY FLEXIBLE PROXIMAL DIAGNOSTIC 03/18/2023 2:15 PM EST Office Visit Dermatology [facility] [place] [address] [facility] [place] [address] Smith Pearson MD [address] [facility] [place] [address] 07/09/2023 1:20 PM EDT Office Visit Family Practice [facility] [address] [facility] [place] [address] Ingris Rodriguez DO [address] [place] [address] 07/19/2023 1:00 PM EDT Office Visit Cardiology, [facility] [address] [facility] [place] [address] Senait Rodriguez CRNP [address] [place] [address] Scheduled Procedures Name Priority Associated Diagnoses Date/Ti me COLONOSCOPY FLEXIBLE PROXIMA L DIAGNOSTIC Rectal bleeding Melena 02/02/2023 1:30 PM EST ESOPHAGOGASTRODUODENOSCOPY ( EGD), FLEXIBLE, TRANSORAL, DIAGNOSTIC Rectal bleeding Melena 02/02/2023 1:30 PM EST Health Maintenance Due Date Last Done Comments [...] this encounter Medical Devices Implanted Type Area Pedal Assembler Device Identifier Shelf Expiration Date Model / Serial / Lot Lens 15.0 Sa60at - [id number] Implanted:Qty: 1 on 12/07/2007 at [facility] Right: Eye CLAUDE : SURGICAL 02/20/2012 SA60AT / [id number] / Lens 15.0 Sa60at - [id number] Implanted:Qty: 1 on 01/12/2008 at OR [facility] Left: Eye CLAUDE : SURGICAL 07/20/2012 SA60AT / [id number] / Stent Viab [id number] - [id number] Implanted:Qty: 1 on 06/09/2017 by Naresh Perry MD [place] [facility] [facility] [employer] 10/12/2019 [id number] / / documented as of this encounter [...] the patient have Health Care Power of Die Sinker Apprentice? No Full Code 01/12/2008 11:07 AM 01/12/2008 3:54 PM
--- OUTSIDE RECORDS SUMMARY | 2023-04-15 03:27 | External Medical Summary | Summary of Care ---
Author Name Unknown Organization [facility] Address [address] [place] [place] [address] Phone [phone] Care Team Providers Care Manufacturing Mechanic Name Role Phone Unavailable Primary Care Provider Unavailabl e Reason for Visit * Reason Comments Review Sleep Study HST Encounter Details Date Type Department Care Team (Latest Contact Info) Description 01/29/2023 10:00 AM EST PulmDiagnostic Sleep Lab Derrick Rivas [address] [facility] [place] [address] Rivas Sleep Med Home Study [facility] [address] [place] [address] Obstructive sleep apnea*; Nocturnal hypoxemia Allergies Active Allergy Reactions Criticality Noted Date [...] Effort syncope 03/06/2014 12/24/2016 Senile nuclear cataract 12/01/200705/2014 documented as of this encounter (statuses as of 02/02/2023) Immunizations Name Administration Dates Next Due COVID-19 mRNA, LNP-s, No Pre serve, 2-Dose Series (GiPStech) 01/08/2021,06/04/2020,05/14/2020 COVID-19, LNP-s, No Preserve , Josr-sucrose, Ages 12+ (GiPStech) 10/10/2021 Covid-19, Mrna, Lnp-s, Pf, B ivalent, 30 Mcg, IM, 12 yrs and above (GiPStech) 07/29/2022 Pneumococcal Conjugate Vacc, 13 Valent (Prevnar) [...] as of this encounter Progress Notes * Jess Knox DO - 02/02/2023 8:31 AM EST Images from the original note were not included. Study Date: 01/29/2023 Patient Name: Jett Fraser Recording Device: Vikki Dexter Sex: M : 1935 Acq ID: [id number] Age: 87 years Location: [facility] Lights off clock time: 8:18:57 PM Total Recording Time (TRT): 457.6 minutes Lights on clock time: 3:08:27 AM Time In Bed (TIB): 409.5 minutes Summary PAULETTE 32.6 OAI 20.3 KIM 0.0 Lowest Desat 69 PAULETTE is the number of apneas and hypopneas per hour. OAI is the number of obstructive apneas per hour. KIM is the number of central apneas per hour. Lowest Desat is the lowest blood oxygen level that lasted at least 2 seconds. RESPIRATORY EVENTS Index (#/hour) Total # of Events Mean duration (sec) Max duration (sec) # of Events by Position Supine Prone Left Right Up Central Apneas 0.0 0 0.0 0.0 0 0 Obstructive Apneas 20.3 127 14.8 23.5 127 0 Mixed Apneas 0.0 0 0.0 0.0 0 0 Hypopneas 12.3 (3%) 77 (3%) 15.7 24.5 77 0 8.6 (4%) 54 (4%) Apneas + Hypopneas 32.6 (3%) 204 (3%) 15.1 24.5 204 0 28.9 (4%) 181 (4%) Total 32.6 (3%) 204 (3%) 15.1 24.5 204 0 28.9 (4%) 181(4%) Time in Position 374.8 20.7 AHI in Position 32.7 0.0 Oximetry Summary Dur. (min) % TIB <90 % 84.9 20.7 <85 % 38.5 9.4 <80 % 6.5 1.6 <70 % 0.2 0.0 Total Dur (min) < 89 74.6 min Average (%) 89 Total # of Desats 118 Desat Index (#/hour) 35.0 Desat Max (%) 13 Desat Max dur (sec) 49.0 Lowest SpO2 % during sleep 69 Duration of Min SpO2 (sec) 12 Heart Rate Stats Mean HR during sleep 80.8 (BPM) Highest HR during recording 255 (BPM) Technical Considerations: Following the clinical guidelines for the use of unattended portable monitors in the diagnosis of obstructive sleep apnea in adult patients published by the Portable Monitoring Task Force of the [place] [employer] published in the Journal of Clinical Sleep Medicine in 2007, this study was recorded using a Type 3 device (Celect). Breathing effort, airflow, oxygen saturations, pulse, body position and patient events were monitored. Raw data was scored by a registered geospatial technologist and reviewed by a sleep physician. The sleep stage and event scoring were based on the AASM Manual for the Scoring of Sleep and Associated Events, Version 2.5. Apneas are defined as a drop in the peak thermal sensor excursion by > 90% of baseline for at least 10 seconds. Hypopneas were scored using the 4% oxygen desaturation rule (4A-Medicare) and a decrease in the nasal pressure excursions by > 30% of baseline for at least 10 seconds. Respiratory Event Index (PAULETTE) is a surrogate for Apnea Hypopnea Index (AHI). Please note that portable monitoring is inadequate to diagnose central sleep apnea because we are unable to differentiate physiologic post-arousal events from a pathological form of central apnea; this is because electroencephalogram is not used in this type of study. Impression: 1. The diagnosis of severe obstructive sleep apnea is supported based on the reported Respiratory Event Index. PAULETTE (3%) = 32.6 and PAULETTE (4%) = 28.9. It should be noted that home sleep apnea tests can underestimate the severity of sleep apnea. 2. The minimum oxygen saturation was 69%. The oxygen saturation was < 89% for 74.6 minutes whichsuggests hypoxemia. The pleth signal was in and out for much of the study; this likely resulted in episodes of artifactin the SpO2 signal, and there were times when hypopneas could not be scored due to insufficient oximetry signal. Recommendation: 1. Consider treatment with CPAP via home auto-titrating positive airway pressure. Other treatment options include in-lab PAP titration study, mandibular advancing device and surgical evaluation. 2. Avoid driving, operating heavy machinery or engaging in activities that may require full alertness if feeling sleepy, drowsy or otherwise impaired. 3. Weight loss is recommended if sleep apnea occurs in the context of obesity. Epoch by epoch review of raw data completed by attending physician. Electronically signed: Jess Knox DO Sleep Medicine documented in this encounter Plan of Treatment Upcoming Encounters Date Type Department Care Team (Late st Contact Info) Description 03/18/2023 2:15 PM EST Office Visit Dermatology [facility] [address] [place] [address] Smith Pearson MD 200 [place] [address] 05/28/2023 10:45 AM EST Procedure Only Endoscopy, [facility] [address] [facility] [place] [address] Radha Alcantar MD [address] [place] [address] 05/28/2023 11:15 AM EST Procedure Only Endoscopy, [facility] [address] [facility] [place] [address] Radha Alcantar MD [address] [place] [address] 07/09/2023 1:20 PM EDT Office Visit [facility] [address] Ingris [facility] [address] [facility] [address] 07/19/2023 1:00 PM EDT Office Visit Cardiology, [facility] [place] [address] Senait [facility] [address] Scheduled Orders Name Type Priority Associated Diagnoses Orde r Schedule SLEEP TEST W/ TYPE 3 PORTABLE MONITOR, 4 CHANNEL; AT HOME Procedures Routine Sleep apnea, unspecified type Chronic diastolic heart failure (HCC) HTN, goal below 140/90 Persistent atrial fibrillation (HCC) Ordered: 12/16/2022 Health Maintenance Due Date Last Done Comments [...] this encounter Medical Devices Implanted Type Area Assembler Latches And Springs Device Identifier Shelf Expiration Date Model / Serial / Lot Lens 15.0 Sa60at - [id number] Implanted:Qty: 1 on 12/07/2007 at [facility] Right: Eye CLAUDE : SURGICAL 02/20/2012 SA60AT / [id number] / Lens 15.0 Sa60at - [id number] Implanted:Qty: 1 on 01/12/2008 at OR [facility] Left: Eye CLAUDE : SURGICAL 07/20/2012 SA60AT / [id number] / Stent Viab [id number] - [id number] Implanted:Qty: 1 on 06/09/2017 by Naresh Perry MD at OR [facility] [place] Left: [facility] [employer] 10/12/2019 [id number] / / documented as of this encounter Visit Diagnoses Diagnosis Obstructive sleep apnea- Primary Obstructive sleep apnea (adult) (pediatric) Nocturnal hypoxemia Hypoxemia documented in this encounter Advance Directives Latest [...] the patient have Health Care Power of Change Release Manager? No Full Code 01/12/2008 11:07 AM 01/12/2008 3:54 PM
--- OUTSIDE RECORDS SUMMARY | 2023-04-15 03:27 | External Medical Summary | Summary of Care ---
Author Name Unknown Organization [facility] Address [address] [facility] [place] [address] Phone [phone] Care Team Providers Care Regional Business Development Manager Name Role Phone Unavailable Primary Care Provider Unavailabl e Reason for Visit * Reason Onset Date Comments Test Results 02/01/2023 Encounter Details Date Type Department Care Team (Late st Contact Info) Description 02/01/2023 Telephone Cardiology, [facility] [address] [place] [address] Senait Rodriguez CRNP [address] [place] [place] [address] Test Results Allergies Active Allergy Reactions Criticality Noted Date Comments Manuel Inhibitors Cough 03/23/2014 Amlodipine Besylate Rash Low 11/15/2012 Caused edema and rash on ankles Nutmeg Oil (Myristica Oil) 5 Other Allergy (See Comments) Rash 06/14/2017 Wool Adhesive Tape 06/18/2014 documented as of this encounter (statuses as of 02/01/2023) Medications Medication Sig Dispensed Refills Start Date [...] as of this encounter (statuses as of 02/01/2023) Active Problems Problem Noted Date Diagnosed Date [...] as of this encounter (statuses as of 02/01/2023) Resolved Problems Problem Noted Date Diagnosed Date Resolved Date Deep venous thrombosis of femoral vein 06/10/2017 06/10/2017 Effort syncope 03/06/2014 12/24/2016 Senile nuclear cataract 12/01/2007 02/0 05/2014 documented as of this encounter (statuses as of 02/01/2023) Immunizations Name Administration Dates Next Due COVID-19 mRNA, LNP-s, No Pre serve, 2-Dose Series (Box) 01/08/2021,06/04/2020,05/14/2020 COVID-19, LNP-s, No Preserve , Josr-sucrose, Ages 12+ (Box) 10/10/2021 Covid-19, Mrna, Lnp-s, Pf, B ivalent, 30 Mcg, IM, 12 yrs and above (Box) 07/29/2022 Pneumococcal Conjugate Vacc, 13 Valent (Prevnar) [...] encounter Miscellaneous Notes * Telephone Encounter - Emilie Adams CMA - 02/01/2023 1:41 PM EST Portal message sent. * Telephone Encounter - Emilie Adams CMA - 02/01/2023 1:40 PM EST ----- Message from KM Mock sent at 02/01/2023 8:17 AM EST ----- BMP stable. Potassium improved. documented in this encounter Plan of Treatment Upcoming Encounters Date Type Department Care Team (Late st Contact Info) Description 03/18/2023 2:15 PM EST Office Visit Dermatology [facility] [place] [address] [place] [address] Smith Pearson MD [address] [place] [address] 05/28/2023 10:45 AM EST Procedure Only Endoscopy, [facility] 132 [facility] [place] [address] Radha Alcantar MD [address] [place] [address] 05/28/2023 11:15 AM EST Procedure Only Endoscopy, [facility] [facility] [address] [place] [address] Radha Alcantar MD [address] [place] [address] 07/09/2023 1:20 PM EDT Office Visit Family Practice [facility] [address] [facility] [place] [address] Ingris Rodriguez DO [address] [place] [address] 07/19/2023 1:00 PM EDT Office Visit Cardiology, [facility] [address] [facility] [place] [address] Senait Rodriguez CRNP [address] [place] [address] Health Maintenance Due Date Last Done Comments COVID-19 Vaccine (2022- season) 2022 07/29/2022, 10/10/2021, 01/08/2021, Additional history [...] this encounter Medical Devices Implanted Type Area Airline Counter Agent Device Identifier Shelf Expiration Date Model / Serial / Lot Lens 15.0 Sa60at - [id number] Implanted:Qty: 1 on 12/07/2007 at [facility] Right: Eye CLAUDE : SURGICAL 02/20/2012 SA60AT / [id number] / Lens 15.0 Sa60at - [id number] Implanted:Qty: 1 on 01/12/2008 at OR [facility] Left: Eye CLAUDE : SURGICAL 07/20/2012 SA60AT / [id number] / Stent Viab [id number] - [id number] Implanted:Qty: 1 on 06/09/2017 by Naresh Perry MD at OR [facility] [place] Left: [facility] [employer] 10/12/2019 [id number] / / documented as of this encounter [...] the patient have Health Care Power of Personal Lines Sales Executive? No Full Code 01/12/2008 11:07 AM 01/12/2008 3:54 PM
--- OUTSIDE RECORDS SUMMARY | 2023-04-15 03:27 | External Medical Summary | Summary of Care ---
Author Name Unknown Organization [facility] Address [address] [facility] [place] [address] Phone [phone] Care Team Providers Care Conversion Worker Name Role Phone Unavailable Primary Care Provider Unavailabl e Reason for Visit * Reason Onset Date Comments Pre Op Discussion 01/28/2023 PAT call Encounter Details Date Type Department Care Team (Late st Contact Info) Description 01/28/2023 Telephone OR [facility], Operating Room [facility] [address] [place] [phone] Lonnie Hillman MD [address] [place] [id number] Pre Op Discussion (PAT call) Allergies Active Allergy Reactions Criticality Noted Date [...] mRNA, LNP-s, No Pre serve, 2-Dose Series (Reclutec) 01/08/2021,06/04/2020,05/14/2020 COVID-19, LNP-s, No Preserve , Josr-sucrose, Ages 12+ (Reclutec) 10/10/2021 Covid-19, Mrna, Lnp-s, Pf, B ivalent, [...] Sleep Lab Derrick Rivas [address] [place] [address] Rivas, Sleep Med Home Study [facility] [address] [place] [address] 02/02/2023 1:30 PM EST Hospital Encounter ENDO [facility], Endoscopy Room [facility] [address] [place] [phone] Lonnie Hillman MD [address] [place] [address] 02/02/2023 1:30 PM EST - 02/02/2023 2:30 PM EST Surgery ENDO [facility], Endoscopy Room [facility] [address] [place] [phone] Lonnie Hillman MD [address] [place] [address] COLONOSCOPY FLEXIBLE PROXIMAL DIAGNOSTIC 03/18/2023 2:15 PM EST Office Visit Dermatology [facility] [place] [address] [place] [address] Smith Pearson MD [address] [place] [address] 07/09/2023 1:20 PM EDT Office Visit Family Practice [facility] [address] [place] [address] Ingris Rodriguez DO [address] [place] [address] 07/19/2023 1:00 PM EDT Office Visit Cardiology, [facility] [address] [place] [address] Senait Rodriguez CRNP [address] [place] [address] Scheduled Procedures Name Priority Associated Diagnoses Date/Ti [...] this encounter Medical Devices Implanted Type Area Tents Assembler Device Identifier Shelf Expiration Date Model / Serial / Lot Lens 15.0 Sa60at - [id number] Implanted:Qty: 1 on 12/07/2007 at [facility] Right: Eye CLAUDE : SURGICAL 02/20/2012 SA60AT / [id number] / Lens 15.0 Sa60at - [id number] Implanted:Qty: 1 on 01/12/2008 at OR [facility] Left: Eye CLAUDE : SURGICAL 07/20/2012 SA60AT / [id number] / Stent Viab [id number] - [id number] Implanted:Qty: 1 on 06/09/2017 by Naresh Perry MD at OR [facility] Left: [employer] 10/12/2019 [id number] / / documented as of this encounter [...] the patient have Health Care Power of Plastic Surgery Coordinator? No Full Code 01/12/2008 11:07 AM 01/12/2008 3:54 PM
--- OUTSIDE RECORDS SUMMARY | 2023-04-15 03:27 | External Medical Summary | Summary of Care ---
Author Name Unknown Organization [facility] Address [address] [facility] [facility] [address] Phone [phone] Care Team Providers Care Archeologist Classical Name Role Phone Unavailable Primary Care Provider Unavailabl e Encounter Details Date Type Department Care Team (Late st Contact Info) Description 01/29/2023 Telephone Gastroenterology, [facility] [address] [facility] [place] [address] Radha Alcantar MD [address] [facility] [place] [address] Allergies Active Allergy Reactions Criticality Noted Date Comments Manuel Inhibitors Cough 03/23/2014 Amlodipine Besylate Rash Low 11/15/2012 Caused edema and rash on ankles Nutmeg Oil (Myristica Oil) 5 Other Allergy (See Comments) Rash 06/14/2017 Wool Adhesive Tape 06/18/2014 documented as of this encounter (statuses as of 01/29/2023) Medications Medication Sig Dispensed Refills Start Date [...] as of this encounter (statuses as of 01/29/2023) Active Problems Problem Noted Date Diagnosed Date [...] as of this encounter (statuses as of 01/29/2023) Resolved Problems Problem Noted Date Diagnosed Date Resolved Date Deep venous thrombosis of femoral vein 06/10/2017 06/10/2017 Effort syncope 03/06/2014 12/24/2016 Senile nuclear cataract 12/01/2007 02/0 05/2014 documented as of this encounter (statuses as of 01/29/2023) Immunizations Name Administration Dates Next Due COVID-19 mRNA, LNP-s, No Pre serve, 2-Dose Series (Ekinops) 01/08/2021,06/04/2020,05/14/2020 COVID-19, LNP-s, No Preserve , Josr-sucrose, Ages 12+ (Pfizer) 10/10/2021 Covid-19, Mrna, Lnp-s, Pf, B ivalent, 30 Mcg, IM, 12 yrs and above (Ekinops) 07/29/2022 Pneumococcal Conjugate Vacc, 13 Valent (Prevnar) [...] encounter Miscellaneous Notes * Telephone Encounter - Gabo Tesfaye [facility] - 01/29/2023 8:21 AM EST ----- Message from Nadira Huff RN sent at 01/28/2023 5:37 PM EST ----- Regarding: FW: BNP Trev, I left a message on pt's phone. He needs a hospital setting. Thank you. Nadira ----- Message ----- From: Alexa Milan MD Sent: 01/28/2023 3:32 PM EST To: Nadira Huff RN Subject: RE: BNP Hi Nadira, I am concerned that he is still in some degree of acute on chronic heart failure. Especially with the procedure requiring a prep, I would recommend that he have the procedure done in [place] in case the prep is enough to push him over the edge. Thanks, Alexa ----- Message ----- From: Nadira Huff RN Sent: 01/28/2023 3:10 PM EST To: Alexa Milan MD Subject: BNP Hello, Pt has increase in BLE edema and BNP. His lasix does was changed, but he said his edema is still "pretty much the same". Denies SOB. Please advise. Thank you. Nadira Huff RN documented in this encounter Plan of Treatment Upcoming Encounters Date Type Department Care Team (Late st Contact Info) Description 01/29/2023 10:00 AM EST PulmDiagnostic Sleep Lab Derrick Rivas [address] [place] [address] Rob Sleep Med Home Study Derrick [address] [place] [place] [address] 03/18/2023 2:15 PM EST Office Visit Dermatology [facility] [place] [address] [facility] [place] [address] Smith Pearson MD [address] [facility] [place] [address] 05/28/2023 10:45 AM EST Procedure Only Endoscopy, [facility] [address] [place] [address] Radha Alcantar MD [address] [place] [address] 05/28/2023 11:15 AM EST Procedure Only Endoscopy, [facility] [address] [place] [address] Radha Alcantar MD [address] [place] [address] 07/09/2023 1:20 PM EDT Office Visit Family Practice [facility] [address] [place] [address] Ingris Rodriguez DO [address] [place] [address] 07/19/2023 1:00 PM EDT Office Visit Cardiology, [facility] [address] [place] [address] Senait Rodriguez CRNP [address] [place] [address] Health Maintenance Due Date Last Done Comments [...] this encounter Medical Devices Implanted Type Area Elevator Conductor Device Identifier Shelf Expiration Date Model / Serial / Lot Lens 15.0 Sa60at - [id number] Implanted:Qty: 1 on 12/07/2007 at OR [facility] Right: Eye CLAUDE : SURGICAL 02/20/2012 SA60AT / [id number] / Lens 15.0 Sa60at - [id number] Implanted:Qty: 1 on 01/12/2008 at OR [facility] Left: Eye CLAUDE : SURGICAL 07/20/2012 SA60AT / [id number] / Stent Viab [id number] - [id number] Implanted:Qty: 1 on 06/09/2017 by Naresh Perry MD at OR [facility] Left: [facility] [employer] 10/12/2019 [id number] / / documented as of this encounter [...] the patient have Health Care Power of Aquatic Director? No Full Code 01/12/2008 11:07 AM 01/12/2008 3:54 PM
--- OUTSIDE RECORDS SUMMARY | 2023-04-15 03:27 | External Medical Summary | Summary of Care ---
Author Name Unknown Organization [facility] Address [address] [place] [facility] [place] [address] Phone [phone] Care Team Providers Care Binder Selector Name Role Phone Unavailable Primary Care Provider Unavailabl e Reason for Visit * Reason Comments Outpatient Testing Encounter Details Date Type Department Care Team (Late st Contact Info) Description 01/30/2023 8:20 AM EST Laboratory Laboratory, [facility] [address] [facility] [phone] [facility] [address] [facility] [address] Chronic diastolic congestive heart failure (HCC) Allergies Active Allergy Reactions Criticality Noted Date Comments Manuel Inhibitors Cough 03/23/2014 Amlodipine Besylate Rash Low 11/15/2012 Caused edema and rash on ankles Nutmeg Oil (Myristica Oil) 5 Other Allergy (See Comments) Rash 06/14/2017 Wool Adhesive Tape 06/18/2014 documented as of this encounter (statuses as of 01/30/2023) Medications Medication Sig Dispensed Refills Start Date [...] as of this encounter (statuses as of 01/30/2023) Active Problems Problem Noted Date Diagnosed Date [...] as of this encounter (statuses as of 01/30/2023) Resolved Problems Problem Noted Date Diagnosed Date Resolved Date Deep venous thrombosis of femoral vein 06/10/2017 06/10/2017 Effort syncope 03/06/2014 12/24/2016 Senile nuclear cataract 12/01/[address] 05/2014 documented as of this encounter (statuses as of 01/30/2023) Immunizations Name Administration Dates Next Due COVID-19 mRNA, LNP-s, No Pre serve, 2-Dose Series (Time To Cater) 01/08/2021,06/04/2020,05/14/2020 COVID-19, LNP-s, No Preserve , Josr-sucrose, Ages 12+ (Time To Cater) 10/10/2021 Covid-19, Mrna, Lnp-s, Pf, B ivalent, 30 Mcg, IM, 12 yrs and above (Time To Cater) 07/29/2022 Pneumococcal Conjugate Vacc, 13 Valent (Prevnar) [...] 03/18/2023 2:15 PM EST Office Visit Dermatology [facility] [address] [facility] [place] [address] Smith Pearson MD [address] [facility] [place] [address] 05/28/2023 10:45 AM EST Procedure Only Endoscopy, [facility] [address] [place] [address] Radha Alcantar MD [address] [place] [address] 05/28/2023 11:15 AM EST Procedure Only Endoscopy, [facility] [address] [place] [address] Radha Alcantar MD [address] [place] [address] 07/09/2023 1:20 PM EDT Office Visit Family [facility] [address] [place] [address] Ingris Rodriguez DO [address] [place] [address] 07/19/2023 1:00 PM EDT Office Visit Cardiology, [facility] [address] [place] [address] Senait Rodriguez CRNP [address] [place] [address] Pending Results Name Type Priority Associated Diagnoses Date /Time BASIC METABOLIC PANEL Lab Routine Chronic diastolic congestive heart failure (HCC) 01/30/2023 8:12 AM EST Health Maintenance Due Date Last Done [...] this encounter Medical Devices Implanted Type Area Etl Consultant Device Identifier Shelf Expiration Date Model / Serial / Lot Lens 15.0 Sa60at - [id number] Implanted:Qty: 1 on 12/07/2007 at [facility] Right: Eye CLAUDE : SURGICAL 02/20/2012 SA60AT / [id number] / Lens 15.0 Sa60at - [id number] Implanted:Qty: 1 on 01/12/2008 at OR [facility] Left: Eye CLAUDE : SURGICAL 07/20/2012 SA60AT / [id number] / Stent Viab [id number] - [id number] Implanted:Qty: 1 on 06/09/2017 by Naresh Perry MD at [place] [facility] Left: [employer] 10/12/2019 [id number] / / documented as of this encounter Visit Diagnoses Diagnosis Chronic diastolic congestive heart failure (HCC) Chronic diastolic heart failure documented in this encounter Advance Directives Latest [...] the patient have Health Care Power of Dicer Machine Operator? No Full Code 01/12/2008 11:07 AM 01/12/2008 3:54 PM
--- OUTSIDE RECORDS SUMMARY | 2023-04-15 03:28 | External Medical Summary | Summary of Care ---
Author Name Unknown Organization [facility] Address [address] [place] [address] Phone [phone] Care Team Providers Care Commercial Development Manager Name Role Phone BinhMichael Primary Care Provider Reason for Visit * Reason Comments Follow Up Encounter Details Date Type Department Care Team (Late st Contact Info) Description 01/14/2023 2:00 PM EDT Office Visit Cardiology, [facility] [address] [place] [address] Senait Rodriguez CRNP [address] [facility] [place] [address] Persistent atrial fibrillation (HCC)*; Chronic diastolic congestive heart failure (HCC); Generalized edema; Dyslipidemia, goal LDL below 100; PVD (peripheral vascular disease) (HCC) Allergies Active Allergy Reactions Criticality Noted Date Comments Manuel Inhibitors Cough 03/23/2014 Amlodipine Besylate Rash Low 11/15/2012 Caused edema and rash on ankles Nutmeg Oil (Myristica Oil) 5 Other Allergy (See Comments) Rash 06/14/2017 Wool Adhesive Tape 06/18/2014 documented as of this encounter (statuses as of 01/14/2023) Medications Medication Sig Dispensed Refills Start Date [...] the morning. 180 Tablet 3 09/24/2022 Active Empagliflozin 10 MG Oral Tablet (Jardiance) Take 1 Tablet by mouth in the morning. 90 Tablet 3 10/01/2022 Active Metoprolol Succinate ER 25 MG Oral Tablet Extended Release 24 Hour (Toprol XL)Indications:Paroxy smal atrial fibrillation (HCC),HTN, goal below 140/90,PVD (peripheral vascular disease) ([facility]) Take 1 Tablet by mouth in the morning. 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 45 Capsule 1 01/12/2023 Active Atorvastatin Calcium 20 MG Oral Tablet (Lipitor)Indications: PVD (peripheral vascular disease) ([facility]) Take 1 Tablet by mouth in the morning. 90 Tablet 1 01/12/2023 Active documented as of this encounter (statuses as of 01/14/2023) Active Problems Problem Noted Date Diagnosed Date [...] as of this encounter (statuses as of 01/14/2023) Resolved Problems Problem Noted Date Diagnosed Date Resolved Date Deep venous thrombosis of femoral vein 06/10/2017 06/10/2017 Effort syncope 03/06/2014 12/24/2016 Senile nuclear cataract 12/01/200705/2014 documented as of this encounter (statuses as of 01/14/2023) Immunizations Name Administration Dates Next Due COVID-19 mRNA, LNP-s, No Pre serve, 2-Dose Series (Medivo) 01/08/2021,06/04/2020,05/14/2020 COVID-19, LNP-s, No Preserve , Josr-sucrose, [...] on file documented as of this encounter Last Filed Vital Signs Vital Sign Reading Time Taken Comments Blood Pressure 124/72 01/14/2023 1:42 PM EDT Pulse 88 01/14/2023 1:42 PM EDT Temperature - - Respiratory Rate 18 01/14/2023 1:42 PM EDT Oxygen Saturation - - Inhaled Oxygen Concentration - - Weight 103.3 kg (227 lb 12.8 oz) 01/14/2023 1:42 PM EDT Height - - Body Mass Index 33.64 01/06/2023 12:15 PM EDT documented in this encounter Functional Status Functional Status Response [...] No 02/10/2014 documented as of this encounter Patient Instructions * Patient Instructions* KM Mock - 01/14/2023 1:53 PM EDT Double dose of Furosemide/Lasix x3 days. Take 40 mg of Lasix in the morning and 40 mg of lasix in the afternoon-- Wednesday, Wednesday, Wednesday On Wednesday resume normal maintenance dose of 40 mg daily [facility] Cardiology: (ask to be [facility] to [facility]) documented in this encounter Progress Notes * Senait Rodriguez SFDC ARCHITECT - 01/14/2023 2:00 PM EDT Cardiology Outpatient Visit 01/14/2023 Primary Sifting Operator: Dr. 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 Was last evaluated by Dr. Jackson approximately 3 months ago. This time he was feeling well following the diuretic increase. Furosemide was continued at 40 mg daily and Jardiance 10 mg daily was added. Today the patient presents with worsening lower extremity edema and a slight weight gain. Notes that over the last week or so his weight has gone up 5 lb at home. He denies any shortness of breath. No orthopnea or PND. Denies chest pain. No lightheadedness or dizziness. No fever, chills, cough, hematochezia, melena, or hemoptysis. Patient was to increase his Lasix/do a DTP prior, but did not makethis change. Patient states that he is normally very compliant with his medications however forgot to take his medications yesterday. Current Outpatient Medications Medication Sig Dispense Refill Aspirin 81 MG Tablet Take 1 Tab by mouth daily. 30 Tab 11 Furosemide 20 MG Oral Tablet (Lasix) Take 2 Tablets by mouth in the morning. 180 Tablet 3 Empagliflozin 10 MG Oral Tablet (Jardiance) Take 1 Tablet by mouth in the morning. 90 Tablet 3 Metoprolol Succinate ER 25 MG Oral Tablet Extended Release 24 Hour (Toprol XL) Take 1 Tablet by mouth in the morning. 90 Tablet 1 Tamsulosin HCl 0.4 MG Oral Capsule (Flomax) Take 1 Capsule by mouth in the morning. 45 Capsule 1 Atorvastatin Calcium 20 MG Oral Tablet (Lipitor) Take 1 Tablet by mouth in the morning. 90 Tablet 1 No current facility-administered medications for this visit. Past Medical History: Diagnosis Date HTN (hypertension) Past Surgical History: Procedure Laterality Date FEM/POP ARTERY REVASC W/ STENT+ANGIOPLASTY Left 06/09/2017 FEM/POP ARTERY REVASC W/ STENT+ANGIOPLASTY performed by Naresh Perry MD at [place] [facility] [place] HEMORRHOIDECTOMY, INTERNAL W/ BANDING 1977 Hemorrhoid(s) Ligation REMOVAL OF APPENDIX 1950 Appendectomy REMOVE CATARACT, INSERT LENS PROSTH 12/07/07 EXTRACAPSULAR CATARACT REMOVAL WITH INTRAOCULAR LENS performed by GERONIMO GUALLPA at OR [facility] REMOVE CATARACT, INSERT LENS PROSTH 01/12/08 EXTRACAPSULAR CATARACT REMOVAL WITH INTRAOCULAR LENS performed by GERONIMO GUALLPA at OR [facility] REMOVE TONSILS & ADENOIDS, UNDER 12 1943 T & A, age<12 Social History Tobacco Use Smoking status: Former Years: 7 Types: Cigarettes, Cigars, Pipe Quit date: 1958 Years since quittin.8 Smokeless tobacco: Never Tobacco comments: Smoked 1 -2 packs/day when smoking Vaping Use Vaping Use: Never used Substance Use Topics Alcohol use: Yes Comment: glass of wine now and then Drug use: No Review of patient's allergies indicates: Allergen Reactions Manuel Inhibitors Cough Nutmeg Oil (Myristica Oil) Other Allergy (See Comments) Rash Wool Tape [Adhesive Tape] Norvasc [Amlodipine Besylate] Rash Caused edema and rash on ankles Review of Systems: See HPI for pertinent positives. All others negative, other than those noted in HPI. Physical Exam BP 124/72 | Pulse 88 | Resp 18 | Wt 103.3 kg (227 lb 12.8 oz) | BMI 33.64 kg/m | BSA 2.24 m General: No acute distress. A+Ox3. HEENT: Normocephalic. Atraumatic. Conjunctiva and sclera clear. NECK: No carotid bruits. No JVD. Carotid upstrokes are brisk. Heart: Irregular. S1 and S2 noted without murmur, rubs, gallops. Lungs: Clear to auscultation. No wheezes, rhonchi, rales. Abdomen: Normal bowel sounds. Soft. Nontender. No masses or organomegaly. No abdominal bruits. Extremities: +3 BLLE pitting edema. Red. Weepy. No clubbing or cyanosis. Pulses: radial=2/4, posterior tibial=2/4, dorsalis pedis = 2/4. NEURO: No focal deficits. PSYCH: Normal. Lab data/imaging study review: Echo 09/21/2022 The examination is adequate to evaluate the referral indication. The left ventricular cavity size is normal. The LV wall thickness is moderately increased (concentric). There is borderline diffuse left ventricular hypokinesis. The qualitative LV ejection fraction is 50-54% (normal). The left atrium is severely enlarged (>48 ml/m^2,). Moderate aortic valve sclerosis is present. Mild aortic valve regurgitation is present. Mild mitral regurgitation is present. Mild tricuspid regurgitation is present. The estimated pulmonary artery systolic pressure is 50-60mm Hg Impression/Plan: 1. Permanent atrial fibrillation (HCC) -Ventricular rates well controlled today in office. Patient asymptomatic. -[id number] score of 4 (age 1, CHF, PVD), not on anticoagulation due to history of rectal bleeding 1. Discussed chronic anticoagulation current contraindications due to recurrent GI bleeding. Not prescribed with patient aware shared decision-making. Most recent treatment guidelines suggest that the prophylactic benefit of aspirin is negligible. 2. Continue metoprolol succinate 25 mg daily. 2. Generalized edema 3. Chronic diastolic congestive heart failure (HCC) -Patient appears hypervolemic on exam with worsening lower extremity edema and weight gain. No shortness of breath. -Repeat blood work pending. 1. Patient was instructed to increase Lasix to 40 mg twice daily x3 days. May benefit from increasein maintenance dose. 2. Recently started on Jardiance, blood work pending- should renal function remains stable will likely increase to 25 mg daily at that time. 4. Dyslipidemia, goal LDL below 100 1. Continue atorvastatin 20 mg daily 5. 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 Take 40 mg of Lasix in the morning and 40 mg of lasix in the afternoon-- Wednesday, Wednesday, Wednesday On Wednesday resume normal maintenance dose of 40 mg daily [facility] Cardiology: (ask to be connected to regional medical center cardiology) The patient agrees to the above plan and will call with additional questions or concerns. ER with all emergencies advised. Follow Up: Return in about 6 months (around 07/16/2023). I spent a total of 30 minutes on the date of service in preparation, delivery, and documentation ofthe care provided to Jett Viera Evelio excluding any time spent in the performance of separately billed services. Senait M. KM Rodriguez, Department of Cardiology This chart was completed in part utilizing [employer] Speech Voice Recognition Software. Grammatical errors, random word insertions, prounoun errors, and incomplete sentences are an occasional consequence of this system due to software limitations, ambient noise, and hardware issues. Any formal questions or concerns about the content, text, or information contained within the body of this dictation should be directly addressed to the provider for clarification. documented in this encounter Nursing Notes * Niki Srivastava LPN - 01/14/2023 1:42 PM EDT Examination Room: 4 Name: Jett Fraser Date of : (1935) Reason for Visit: Follow up Interim Hospitalization(s): Denies Problems/Concerns: Denies Chest Pain/SOB: Denies My [facility] is a way you can talk to your provider online through e-mail. Would you like to sign up? I can activate it for you? ALREADY ACTIVE Patient was instructed to not get up on the exam table until directed and assisted by their provider; patient is to remain seated in the chair/ wheelchair/ exam table for fall prevention and safety reasons. Patient is aware to have assistance to step down off exam table with personnel. Patient voiced full comprehension of instructions. documented in this encounter Plan of Treatment Upcoming Encounters Date Type Department Care Team (Latest Contact Info) Description 01/29/2023 10:00 AM EST PulmDiagnostic Sleep Lab [facility] [address] [place] [id number] Rob Sleep Med Home Study Derrick [address] [place] [address] 02/02/2023 1:30 PM EST Hospital Encounter ENDO [facility], Endoscopy Room [facility] [address] [place] [phone] Lonnie Hillman MD [address] [place] [place] [address] 02/02/2023 1:30 PM EST - 02/02/2023 2:30 PM EST Surgery ENDO [facility], Endoscopy Room [facility] [address] [place] [phone] Lonnie Hillman MD [address] [place] [address] COLONOSCOPY FLEXIBLE PROXIMAL DIAGNOSTIC 03/18/2023 2:15 PM EST Office Visit [facility] [address] [facility] [place] [address] Smith Pearson MD [address] [facility] [place] [address] 07/09/2023 1:20 PM EDT Office Visit Family Practice [facility] [address] [place] [address] Ingris Rodriguez DO [address] [place] [address] 07/19/2023 1:00 PM EDT Office Visit Cardiology, [facility] [address] [place] [address] Senait Rodriguez CRNP [address] [place] [address] Scheduled Procedures Name Priority Associated Diagnoses Date/Ti [...] this encounter Medical Devices Implanted Type Area Syrup Mixer Assistant Device Identifier Shelf Expiration Date Model / Serial / Lot Lens 15.0 Sa60at - [id number] Implanted:Qty: 1 on 12/07/2007 at OR [facility] Right: Eye CLAUDE : SURGICAL 02/20/2012 SA60AT / [id number] / Lens 15.0 Sa60at - [id number] Implanted:Qty: 1 on 01/12/2008 at OR [facility] Left: Eye CLAUDE : SURGICAL 07/20/2012 SA60AT / [id number] / Stent Viab [id number] - [id number] Implanted:Qty: 1 on 06/09/2017 by Naresh Perry MD at [place] [facility] [place] Left: [employer] 10/12/2019 [id number] / / documented as of this encounter Visit Diagnoses Diagnosis Persistent atrial fibrillation (HCC)- Primary Atrial fibrillation Chronic diastolic congestive heart failure (HCC) Chronic diastolic heart failure Generalized edema Edema Dyslipidemia, goal LDL below 100 Other and unspecified hyperlipidemia PVD (peripheral vascular disease) (HCC) Peripheral vascular disease, unspecified Rectal bleeding Hemorrhage of rectum and anus Melena Blood in stool documented in this encounter Advance Directives Latest [...] the patient have Health Care Power of Bandage Winding Machine Operator? No Full Code 01/12/2008 11:07 AM 01/12/2008 3:54 PM Care Teams Commercial Development Manager Relationship Specialty Start Date End Date Michael Purcell DO [address] [facility] [place] [address] PCP - General Family Medicine 01/07/21 documented as of this encounter"
--- OUTSIDE RECORDS SUMMARY | 2023-04-15 03:28 | External Medical Summary | Summary of Care ---
Author Name Unknown Organization [facility] Address [address] [place] [address] Phone [phone] Care Team Providers Care Motor Expert Name Role Phone BinhMichael Primary Care Provider Reason for Visit * Reason Comments Outpatient Testing Encounter Details Date Type Department Care Team (Late st Contact Info) Description 01/14/2023 1:10 PM EDT Laboratory Laboratory, [facility] [address] [place] [address] [facility] [address] [place] [address] Abnormal CBC; Serum total bilirubin elevated; Hyperkalemia Allergies Active Allergy Reactions Criticality Noted Date [...] Oral Tablet (Lipitor)Indications: PVD (peripheral vascular disease) ([facility]) Take 1 Tablet by mouth in the [...] mRNA, LNP-s, No Pre serve, 2-Dose Series (Glass) 01/08/2021,06/04/2020,05/14/2020 COVID-19, LNP-s, No Preserve , Josr-sucrose, Ages 12+ (Glass) 10/10/2021 Covid-19, Mrna, Lnp-s, Pf, B ivalent, [...] Department Care Team (Latest Contact Info) Description 01/14/2023 2:00 PM EDT Office Visit Cardiology, [facility] [address] [place] [address] Senait Rodriguez CRNP [address] [place] [address] Cardiology Outpatient Visit 01/29/2023 10:00 AM EST PulmDiagnostic Sleep Lab [facility] [address] [place] [address] [facility], Sleep Med Home Study [facility] [address] [place] [address] 02/02/2023 1:30 PM EST Hospital Encounter [facility]O [facility], Endoscopy Room [facility] [address] [place] [phone] Lonnie Hillman MD [address] [place] [address] 02/02/2023 1:30 PM EST - 02/02/2023 2:30 PM EST Surgery ENDO [facility], Endoscopy Room [facility] [address] [place] [phone] Lonnie Hillman MD [address] [place] [address] COLONOSCOPY FLEXIBLE PROXIMAL DIAGNOSTIC 03/18/2023 2:15 PM EST Office Visit Dermatology [facility] [address] [facility] [place] [address] Smith Pearson MD [address] [place] [address] 07/09/2023 1:20 PM EDT Office Visit Family [facility] [address] [place] [address] Ingris Rodriguez DO [address] [place] [address] Pending Results Name Type Priority Associated Diagnoses Date /Time CBC WITH WBC DIFFERENTIAL Lab Routine Abnormal CBC 01/14/2023 1:09 PM EDT HEPATIC FUNCTION PANEL Lab Routine Serum total bilirubin elevated 01/14/2023 1:09 PM EDT BASIC METABOLIC PANEL Lab STAT Abnormal CBC Serum total bilirubin elevated Hyperkalemia 01/14/2023 1:09 PM EDT CBC Lab Routine Abnormal CBC 01/14/2023 1:09 PM EDT DIFFERENTIAL, AUTOMATED Lab Routine Abnormal CBC 01/14/2023 1:09 PM EDT Scheduled Procedures Name Priority Associated Diagnoses Date/Ti [...] this encounter Medical Devices Implanted Type Area Power Electronics Research Engineer Device Identifier Shelf Expiration Date Model / Serial / Lot Lens 15.0 Sa60at - [id number] Implanted:Qty: 1 on 12/07/2007 at OR [facility] Right: Eye CLAUDE : SURGICAL 02/20/2012 SA60AT / [id number] / Lens 15.0 Sa60at - [id number] Implanted:Qty: 1 on 01/12/2008 at OR [facility] Left: Eye CLAUDE : SURGICAL 07/20/2012 SA60AT / [id number] / Stent Viab [id number] - [id number] Implanted:Qty: 1 on 06/09/2017 by Naresh Perry MD at [place] [facility] Left: [facility] [employer] 10/12/2019 [id number] / / documented as of this encounter Visit Diagnoses Diagnosis Abnormal CBC Other abnormal blood chemistry Serum total bilirubin elevated Jaundice, unspecified, not of Hyperkalemia Hyperpotassemia Rectal bleeding Hemorrhage of rectum and anus [...] the patient have Health Care Power of Parking Meter Attendant? No Full Code 01/12/2008 11:07 AM 01/12/2008 3:54 PM Care Teams Motor Expert Relationship Specialty Start Date End Date Michael Purcell DO [address] [place] [address] PCP - General Family Medicine 01/07/21 documented as of this encounter
--- OUTSIDE RECORDS SUMMARY | 2023-04-15 03:28 | External Medical Summary | Summary of Care ---
Author Name Unknown Organization [facility] Address [address] [facility] [place] [address] Phone [phone] Care Team Providers Care Nursing Education Specialist Name Role Phone BinhMichael israel Primary Care Provider [phone] Reason for Visit * Reason Onset Date Comments Test Results 01/06/2023 Encounter Details Date Type Department Care Team (Late st Contact Info) Description 01/06/[address] [facility] [address] [place] [address] Ingris Rodriguez DO [address] [place] [address] Test Results Allergies Active Allergy Reactions Criticality Noted Date Comments Manuel Inhibitors Cough 03/23/2014 Amlodipine Besylate Rash Low 11/15/2012 Caused edema and rash on ankles Nutmeg Oil (Myristica Oil) 5 Other Allergy (See Comments) Rash 06/14/2017 Wool Adhesive Tape 06/18/2014 documented as of this encounter (statuses as of 01/13/2023) Medications Medication Sig Dispensed Refills Start Date End Date Status Aspirin 81 MG TabletIndications: Femoral artery aneurysm (HCC) Take 1 Tab by mouth daily. 30 Tab 11 04/15/2017 Active Furosemide 20 MG Oral Tablet (Lasix)Indications :Persistent atrial fibrillation (HCC),Generalized edema,Chronic diastolic congestive heart failure (HCC),Dyslipidemia , goal LDL below 100,PVD (peripheral vascular disease) (HCC),HTN, goal below 140/90 Take 2 Tablets by mouth in the morning. 180 Tablet 3 09/24/2022 Active Empagliflozin 10 MG Oral Tablet (Jardiance) Take 1 Tablet by mouth in the morning. 90 Tablet 3 10/01/2022 Active Atorvastatin Calcium 20 MG Oral Tablet (Lipitor)Indicatio ns:PVD (peripheral vascular disease) (HCC) Take by mouth 1 Tablet in the morning. 90 Tablet 3 01/05/2022 01/12/2023 Discontinued (Refill) Metoprolol Succinate ER 25 MG Oral Tablet Extended Release 24 Hour (Toprol XL)Indications:Par oxysmal atrial fibrillation (HCC),HTN, goal below 140/90,PVD (peripheral vascular disease) (HCC) Take by mouth 1 Tablet in the morning. 90 Tablet 3 01/05/2022 01/12/2023 Discontinued (Refill) Tamsulosin HCl 0.4 MG Oral Capsule (Flomax)Indication s:BPH with obstruction/lower urinary tract symptoms Take by mouth 1 Capsule in the morning. 45 Capsule 3 01/05/2022 01/12/2023 Discontinued (Refill) documented as of this encounter (statuses as of 01/13/2023) Active Problems Problem Noted Date Diagnosed Date [...] as of this encounter (statuses as of 01/13/2023) Resolved Problems Problem Noted Date Diagnosed Date Resolved Date Deep venous thrombosis of femoral vein 06/10/2017 06/10/2017 Effort syncope 03/06/2014 12/24/2016 Senile nuclear cataract 12/01/2007/05/2014 documented as of this encounter (statuses as of 01/13/2023) Immunizations Name Administration Dates Next Due COVID-19 mRNA, LNP-s, No Pre serve, 2-Dose Series (Scrybe) 01/08/2021,06/04/2020,05/14/2020 COVID-19, LNP-s, No Preserve , Josr-sucrose, [...] encounter Miscellaneous Notes * Telephone Encounter - Malinda Ferreira CPhT - 01/13/2023 8:04 AM EDT Pt returning called. Advised of previous message but did not understand and would like a return call from the office Pt #[phone] Please advise Thank you, Malinda Ferreira CphT Bilingual Nanny III Centralized Clinical Pharmacy Services(CCPS) (formerly Telepharmacy) 01/13/2023,8:05 AM * Telephone Encounter - Salome Grace LPN - 01/11/2023 3:44 PM EDT Attempted to call pt, no answer, lmom for pt to return call for information in this encounter from KM Mello * Telephone Encounter - Zenobia San LPN - 01/08/2023 4:36 PM EDT Images from the original note were not included. Called pt, aware of US results. Seemed to be aware of cardio appt, however did not know about Lasixchange. Pt is aware. Aware to also repeat labs. Follow up with Cardio next week. Pt states understanding. KM Mock OSA (12:40 PM) 01/14 is ok * Telephone Encounter - Ingris Rodriguez DO - 01/07/2023 12:33 PM EDT US abdomen - no GI issues - plan for repeat labs in 2 weeks Incidental finding of fluid on lungs - pleural effusion both lungs - contacted cardio - see other message from cardio. BNP also mild elevation - plan to see cardio in office next week for follow up and he is to double lasix dosage x 3 days. * Telephone Encounter - SORAYA Tillman - 01/07/2023 12:32 PM EDT First opening next week is 01/14. Is this ok? Dr. Jackson is image next week, but I have been asked not schedule patients with the image provider on Wednesday of image week. * Telephone Encounter - KM Mock - 01/07/2023 12:27 PM EDT Spoke with Dr. Rodriguez- Concerns for acute on chronic CHF-- Double Lasix (40 mg BID x3 days). Please have patient come in early next week for CHF evaluation. Known to myself or Dr. Jackson- any AP appropriate. * Telephone Encounter - KM Mock - 01/07/2023 7:56 AM EDT Patient not on any Rx'd meds that would be increasing his K level. Make sure he is not eating a diet high in potassium or taking OTC meds with K in them. ?salt substitutes? Repeat BMP tomorrow-- have him come to [facility] or another lab were they can run the blood work STAT to make sure the specimen is good. If K remains persistently elevated, may need to see nephro. KM Brower * Telephone Encounter - Jay Frey - 01/06/2023 3:29 PM EDT Called pt, scheduled US for tomorrow morning. Also told pt the he needs to repeat lab work in 2 wks. * Telephone Encounter - Ingris Rodriguez DO - 01/06/2023 2:17 PM EDT Senait - could you re-address elevated potassium? Cbcd - mild abnormality noted - advise recheck of nonfasting labs in 2 weeks Total bilirubin - elevation - needs US of abdomen this week repeat labs 2 weeks Other labs pending Thank you documented in this encounter Plan of Treatment Upcoming Encounters Date Type Department Care Team (Latest Contact Info) Description 01/14/2023 2:00 PM EDT [facility] [address] [address] Senait Rodriguez CRNP [address] [address] 01/29/2023 10:00 AM EST PulmDiagnostic Sleep Lab [facility]rick Rivas [address] [address] Rob Sleep Med Home Study [facility] [address] [address] 02/02/2023 1:30 PM EST Hospital Encounter ENDO [facility], Endoscopy Room [facility] [address] [place] [phone] Lonnie Hillman MD [address] [place] [address] 02/02/2023 1:30 PM EST - 02/02/2023 2:30 PM EST Surgery ENDO [facility], Endoscopy Room [facility] [address] [place] [phone] Lonnie Hillman MD [address] [place] [address] COLONOSCOPY FLEXIBLE PROXIMAL DIAGNOSTIC 03/18/2023 2:15 PM EST Office Visit Dermatology [facility] [address] [facility] [place] [address] Smith Pearson MD [address] [place] [address] 07/09/2023 1:20 PM EDT [facility] [address] [place] [address] Ingris Rodriguez DO [address] [place] [address] Scheduled Orders Name Type Priority Associated Diagnoses Orde r Schedule CBC WITH WBC DIFFERENTIAL Lab Routine Abnormal CBC Expected: 01/20/2023 (Approximate), Expires: 01/07/2024 HEPATIC FUNCTION PANEL Lab Routine Serum total bilirubin elevated Expected: 01/20/2023 (Approximate), Expires: 01/06/2024 BASIC METABOLIC PANEL Lab STAT Abnormal CBC Serum total bilirubin elevated Hyperkalemia Expected: 01/08/2023, Expires: 01/08/2024 Scheduled Procedures Name Priority Associated Diagnoses Date/Ti [...] this encounter Medical Devices Implanted Type Area Tv Technician Device Identifier Shelf Expiration Date Model / Serial / Lot Lens 15.0 Sa60at - [id number] Implanted:Qty: 1 on 12/07/2007 at [facility] Right: Eye CLAUDE : SURGICAL 02/20/2012 SA60AT / [id number] / Lens 15.0 Sa60at - [id number] Implanted:Qty: 1 on 01/12/2008 at [facility] Left: Eye CLAUDE : SURGICAL 07/20/2012 SA60AT / [id number] / Stent Viab [id number] - [id number] Implanted:Qty: 1 on 06/09/2017 by Naresh Perry MD at [place] [facility] Left: [facility] [employer] 10/12/2019 [id number] / / documented as of this encounter Results * US ABDOMEN LIMITED (01/07/2023 9:15 AM EDT) Anatomical Region Laterality Modality Abdomen, Body Ultrasound 01/07/2023 10:0 1 AM EDT Impressions 01/07/2023 9:59 AM EDT IMPRESSION 1. Biliary tree normal in caliber. Gallbladder unremarkable. 2. Bilateral pleural effusions noted incidentally. Narrative 01/07/2023 9:59 AM EDT EXAM US ABDOMEN LIMITED-01/07/2023 9:15 am HISTORY venecia bilirubin TECHNIQUE Grayscale images of the right upper quadrant. COMPARISON CT abdomen 04/23/2017. FINDINGS LIVER: Normal echogenicity. No focal lesion. BILE DUCTS: No intrahepatic or extrahepatic duct dilatation. The common bile duct measures 3 mm. GALLBLADDER: No cholelithiasis, gallbladder wall thickening, or pericholecystic fluid. PANCREAS: Body and tail are unremarkable. Portion of the head is not seen due to bowel gas. RIGHT KIDNEY: 11.8 cm in length. No hydronephrosis, shadowing calculi, or focal lesion. Cyst upper pole 1.6 cm. OTHER: No ascites. Bilateral pleural effusions. Procedure Note Michael Tirado MD - 01/07/2023 EXAM US ABDOMEN LIMITED-01/07/2023 9:15 am HISTORY venecia bilirubin TECHNIQUE Grayscale images of the right upper quadrant. COMPARISON CT abdomen 04/23/2017. FINDINGS LIVER: Normal echogenicity. No focal lesion. BILE DUCTS: No intrahepatic or extrahepatic duct dilatation. The commonbile duct measures 3 mm. GALLBLADDER: No cholelithiasis, gallbladder wall thickening, orpericholecystic fluid. PANCREAS: Body and tail are unremarkable. Portion of the head is not seendue to bowel gas. RIGHT KIDNEY: 11.8 cm in length. No hydronephrosis, shadowing calculi, orfocal lesion. Cyst upper pole 1.6 cm. OTHER: No ascites. Bilateral pleural effusions. IMPRESSION IMPRESSION 1. Biliary tree normal in caliber. Gallbladder unremarkable. 2. Bilateral pleural effusions noted incidentally. Ingris Rodriguez DO RAD ULTRASOUND documented in this encounter Visit Diagnoses Diagnosis Abnormal CBC- Primary Other abnormal blood chemistry Serum total bilirubin elevated Jaundice, unspecified, not of Hyperkalemia Hyperpotassemia Serum total bilirubin elevated Jaundice, unspecified, not of Rectal bleeding Hemorrhage of rectum and anus [...] the patient have Health Care Power of Softball Player? No Full Code 01/12/2008 11:07 AM 01/12/2008 3:54 PM Care Teams Nursing Education Specialist Relationship Specialty Start Date End Date Michael Purcell DO [address] [place] [address] PCP - General Family Medicine 01/07/21 documented as of this encounter
--- OUTSIDE RECORDS SUMMARY | 2023-04-15 03:28 | External Medical Summary | Summary of Care ---
Author Name Unknown Organization [facility] Address [address] [facility] [place] [address] Phone [phone] Care Team Providers Care Die Attaching Machine Tender Name Role Phone BinhMichael israel Primary Care Provider Reason for Visit * Reason Onset Date Comments Test Results 01/06/2023 Encounter Details Date Type Department Care Team (Late st Contact Info) Description 01/06/2023 Telephone Family Practice [facility] [address] [place] [address] Ingris Rodriguez DO [address] [place] [address] Test Results Allergies Active Allergy Reactions Criticality [...] mRNA, LNP-s, No Pre serve, 2-Dose Series ([employer]) 01/08/2021,06/04/2020,05/14/2020 COVID-19, LNP-s, No Preserve , Josr-sucrose, [...] encounter Miscellaneous Notes * Telephone Encounter - Niki Srivastava LPN - 01/13/2023 1:04 PM EDT Patient has appt with mid level tomorrow * Telephone Encounter - Malinda Ferreira CPhT - 01/13/2023 8:04 AM EDT Pt returning called. Advised of previous message but did not understand and would like a return call from the office Pt #[phone] Please advise Thank you, aMlinda Ferreira CphT Representative Personal Service III Centralized Clinical Pharmacy Services(CCPS) (formerly Telepharmacy) [...] 01/14/2023 2:00 PM EDT [facility] [address] [place] [address] Senait Rodriguez CRNP [address] [place] [address] 01/29/2023 10:00 AM EST PulmDiagnostic Sleep Lab [facility] [place] [address] [place] [address] [facility] Sleep Med Home Study [facility] [address] [place] [address] 02/02/2023 1:30 PM EST Hospital Encounter ENDO [facility], Endoscopy Room [facility] [address] [place] [phone] Lonnie Hillman MD [address] [place] [address] 02/02/2023 1:30 PM EST - 02/02/2023 2:30 PM EST Surgery ENDO [facility], Endoscopy Room [facility] [address] [place] [phone] Lonnie Hillman MD [address] [place] [address] COLONOSCOPY FLEXIBLE PROXIMAL DIAGNOSTIC 03/18/2023 2:15 PM EST Office Visit Dermatology [facility] [address] [facility] [place] [address] Smith Pearson MD [address] [facility] [place] [address] 07/09/2023 1:20 PM EDT Office Visit [facility] [address] [place] [address] Ingris Rodriguez DO [address] [place] [address] Scheduled Orders Name Type Priority Associated Diagnoses [...] this encounter Medical Devices Implanted Type Area Warehouse Shipper Device Identifier Shelf Expiration Date Model / Serial / Lot Lens 15.0 Sa60at - [id number] Implanted:Qty: 1 on 12/07/2007 at [facility] Right: Eye CLAUDE : SURGICAL 02/20/2012 SA60AT / [id number] / Lens 15.0 Sa60at - [id number] Implanted:Qty: 1 on 01/12/2008 at OR [facility] Left: Eye CLAUDE : SURGICAL 07/20/2012 SA60AT / [id number] / Stent Viab [id number] - [id number] Implanted:Qty: 1 on 06/09/2017 by Naresh Perry MD [place] [facility] Left: [facility] [employer] 10/12/2019 [id number] / / documented as of this encounter [...] unremarkable. 2. Bilateral pleural effusions noted incidentally. Ingrisdana Higginbothamgretta BARAJAS RAD ULTRASOUND documented in this encounter Visit [...] patient have Health Care Power of Plastic Cablemaking Machine Operator? No Full Code 01/12/2008 11:07 AM 01/12/2008 3:54 PM Care Teams Die Attaching Machine Tender Relationship Specialty Start Date End Date Michael Purcell DO [address] [address] PCP - General Family Medicine 01/07/21 documented as of this encounter
--- OUTSIDE RECORDS SUMMARY | 2023-04-15 03:28 | External Medical Summary | Summary of Care ---
Author Name Unknown Organization [facility] Address [address] [facility] [place] [address] Phone [phone] Care Team Providers Care Dietetics Teacher Name Role Phone Michael Purcell DO Primary Care Provider Reason for Visit * Reason Onset Date Comments Med Request 01/12/2023 Encounter Details Date Type Department Care Team (Late st Contact Info) Description 01/12/2023 Refill Family Practice [facility] [address] [place] [address] Michael Purcell DO [address] [place] [phone] Paroxysmal atrial fibrillation (HCC); HTN, goal below 140/90; PVD (peripheral vascular disease) (HCC); BPH with obstruction/lower urinary tract symptoms Allergies Active Allergy Reactions Criticality Noted Date Comments Manuel Inhibitors Cough 03/23/2014 Amlodipine Besylate Rash Low 11/15/2012 Caused edema and rash on ankles Nutmeg Oil (Myristica Oil) 5 Other Allergy (See Comments) Rash 06/14/2017 Wool Adhesive Tape 06/18/2014 documented as of this encounter (statuses as of 01/12/2023) Medications Medication Sig Dispensed Refills Start Date [...] Active Tamsulosin HCl 0.4 MG Oral Capsule (Flomax)Indication s:BPH with obstruction/lower urinary tract symptoms Take 1 Capsule by mouth in the morning. 45 Capsule 1 01/12/2023 Active Atorvastatin Calcium 20 MG Oral Tablet (Lipitor)Indicatio ns:PVD (peripheral vascular disease) (HCC) Take 1 Tablet by mouth in the morning. 90 Tablet 1 01/12/2023 Active Atorvastatin Calcium 20 MG [...] as of this encounter (statuses as of 01/12/2023) Active Problems Problem Noted Date Diagnosed Date [...] as of this encounter (statuses as of 01/12/2023) Resolved Problems Problem Noted Date Diagnosed Date Resolved Date Deep venous thrombosis of femoral vein 06/10/2017 06/10/2017 Effort syncope 03/06/2014 12/24/2016 Senile nuclear cataract 12/01/2007/05/2014 documented as of this encounter (statuses as of 01/12/2023) Immunizations Name Administration Dates Next Due COVID-19 mRNA, LNP-s, No Pre serve, 2-Dose Series (eVariant) 01/08/2021,06/04/2020,05/14/2020 COVID-19, LNP-s, No Preserve , Josr-sucrose, [...] encounter Miscellaneous Notes * Telephone Encounter - Zia Parson [facility] - 01/12/2023 1:27 PM EDT Signed Prescriptions: Disp Refills Metoprolol Succinate ER 25 MG Oral Tablet *90 Tab*1 Sig: Take 1 Tablet by mouth in the morning. Authorizing Provider: KRISTIN RODRIGUEZ Ordering User: ZIA PARSON Tamsulosin HCl 0.4 MG Oral Capsule (Flomax)45 Cap*1 Sig: Take 1 Capsule by mouth in the morning. Authorizing Provider: KRISTIN RODRIGUEZ Ordering User: DANIEL PARSON Atorvastatin Calcium 20 MG Oral Tablet (Li*90 Tab*1 Sig: Take 1 Tablet by mouth in the morning. Authorizing Provider: KRISTIN RODRIGUEZ Ordering User: ZIA PARSON * Telephone Encounter - Bhargavi Almendarez [facility] - 01/12/2023 1:17 PM EDT Caller is asking for high priority because the pt is currently waiting at the pharmacy. Did you pend patient's preferred pharmacy and medication before forwarding?no Pharmacy: [facility] [address] [place] Pending Prescriptions: Disp Refills Metoprolol Succinate ER 25 MG Oral Tablet*90 Tab*3 Sig: Take 1 Tablet by mouth in the morning. Tamsulosin HCl 0.4 MG Oral Capsule (Floma*45 Cap*3 Sig: Take 1 Capsule by mouth in the morning. Atorvastatin Calcium 20 MG Oral Tablet (L*90 Tab*3 Sig: Take 1 Tablet by mouth in the morning. Last Visit: 01/06/2023 (in office), Visit date not found (telemedicine) Next Visit: 07/09/2023 If no future appointments scheduled, and last appointment is greater than a year ago, please schedule patient for a follow-up appointment Last date the medication was ordered: 01/05/22 Is this request for a controlled substance?No Urine Drug Screen:No results found for this or any previous visit. Patient Phone Numbers Labs: Lab Results Component Value Date/Time CREAT 0.9 01/06/2023 12:56 PM CREAT 0.9 01/01/2020 03:23 PM POTASSIUM 5.6 (H) 01/06/2023 12:56 PM POTASSIUM 4.4 01/01/2020 03:23 PM TSH 1.85 01/06/2023 12:56 PM TSH 1.63 01/05/2019 09:15 AM LDLCALC 51 01/06/2023 12:56 PM LDLCALC 64 01/01/2020 03:23 PM LDLDIRECT NOT APPLICABLE 01/01/2020 03:23 PM ALT 17 01/06/2023 12:56 PM ALT 13 01/01/2020 03:23 PM HGBA1C 6.3 (H) 01/06/2023 12:56 PM * Telephone Encounter - SORAYA Zamorano - 01/12/2023 10:37 AM EDT Needs all of his medications renewed and sent to the pharmacy except the Jardiance and Lasix documented in this encounter Plan of Treatment Upcoming Encounters Date Type Department Care Team (Latest Contact Info) Description 01/14/2023 2:00 PM EDT Office Visit Cardiology, [facility] [address] [address] Senait Rodriguez CRNP [address] [address] 01/29/2023 10:00 AM EST PulmDiagnostic Sleep Lab [facility] [address] [address] [facility], Sleep Med Home Study [facility] [address] [address] 02/02/2023 1:30 PM EST Hospital Encounter ENDO [facility], Endoscopy Room [facility] [address] [phone] Lonnie Hillman MD [address] [place] [address] 02/02/2023 1:30 PM EST - 02/02/2023 2:30 PM EST Surgery ENDO [facility], Endoscopy Room [facility] [address] [place] [phone] Lonnie Hillman MD [address] [place] [address] COLONOSCOPY FLEXIBLE PROXIMAL DIAGNOSTIC 03/18/2023 2:15 PM EST Office Visit Dermatology [facility] [address] [place] [address] Smith Pearson MD [address] [place] [address] 07/09/2023 1:20 PM EDT [facility] [address] [place] [address] Kristin Rodriguez DO [address] [place] [address] Scheduled Procedures Name Priority Associated Diagnoses Date/Ti [...] this encounter Medical Devices Implanted Type Area Compliance Project Manager Device Identifier Shelf Expiration Date Model / Serial / Lot Lens 15.0 Sa60at - [id number] Implanted:Qty: 1 on 12/07/2007 at [facility] Right: Eye CLAUDE : SURGICAL 02/20/2012 SA60AT / [id number] / Lens 15.0 Sa60at - [id number] Implanted:Qty: 1 on 01/12/2008 at OR [facility] Left: Eye CLAUDE : SURGICAL 07/20/2012 SA60AT / [id number] / Stent Viab [id number] - [id number] Implanted:Qty: 1 [place] 06/09/2017 [place] [facility] [place] [facility] [employer] 10/12/2019 [id number] / / documented as of this encounter Visit Diagnoses Diagnosis Paroxysmal atrial fibrillation (HCC) Atrial fibrillation HTN, goal below 140/90 Unspecified essential hypertension PVD (peripheral vascular disease) (HCC) Peripheral vascular disease, unspecified BPH with obstruction/lower urinary tract symptoms Hypertrophy of prostate with urinary obstruction and other lower urinary tract symptoms (LUTS) Rectal bleeding Hemorrhage of rectum and anus [...] the patient have Health Care Power of Automotive Salesperson? No Full Code 01/12/2008 11:07 AM 01/12/2008 3:54 PM Care Teams Dietetics Teacher Relationship Specialty Start Date End Date Michael Purcell DO [address] [place] [address] PCP - General Family Medicine 01/07/21 documented as of this encounter
--- OUTSIDE RECORDS SUMMARY | 2023-04-15 03:28 | External Medical Summary ---
Author Name Unknown Address Unknown Organization K01:[facility] - [facility] [address] Laboratory Report Ordering Provider Test Date Status RAVI FOSTER 01/14/2023 13:09:45 Final Observation Date Value Abnormality Reference (Units ) Status WBC, Total 01/14/2023 13:09:45 6.76 4.00-10.80 (K/uL) Final RBC 01/14/2023 13:09:45 5.36 4.50-5.25 (M/uL) Final Hemoglobin 01/14/2023 13:09:45 16.4 14.0-16.8 (g/dL) Final HCT 01/14/2023 13:09:45 54.7 Above high normal 40.0-48.4 (%) Final MCV 01/14/2023 13:09:45 102.1 82.0-99.5 (fL) Final MCH 01/14/2023 13:09:45 30.6 27.0-34.0 (pg) Final MCHC 01/14/2023 13:09:45 30.0 32.0-36.0 (g/dL) Final RDW 01/14/2023 13:09:45 14.9 11.5-15.5 (%) Final Platelets 01/14/2023 13:09:45 150 140-400 (K/uL) Final MPV 01/14/2023 13:09:45 10.1 6.6-11.1 (fL) Final Nucleated erythrocytes/100 leukocytes [Ratio] in Blood by Automated count 01/14/2023 13:09:45 0 <=0 (/100 WBCs) Final Performing Location [facility] - [address] [facility] [place] [address]
--- OUTSIDE RECORDS SUMMARY | 2023-04-15 03:28 | External Medical Summary ---
Author Name Unknown Address Unknown Organization K0G:[facility]ATORY [place] [address] - [address] [place] [id number] Laboratory Report Ordering Provider Test Date Status TRACY BERGER 01/14/2023 13:09:45 Final Observation Date Value Abnormality Reference (Units ) Status BUN 01/14/2023 13:09:45 19 6-20 (mg/dL) Final Creatinine 01/14/2023 13:09:45 0.9 0.6-1.2 (mg/dL) Final Glomerular filtration rate/1.73 sq M.predicted [Volume Rate/Area] in Serum, Plasma or Blood by Creatinine-based formula (CKD-EPI) 01/14/2023 13:09:45 84 >=60 (mL/min) Final eGFR is calculated based on the CKD-EPI 2020 equation SODIUM 01/14/2023 13:09:45 143 135-146 (m mol/L) Final Potassium 01/14/2023 13:09:45 5.3 Above high normal 3. 5-5.1 (mmol/L) Final Cl 01/14/2023 13:09:45 103 98-107 (mm ol/L) Final CO2 01/14/2023 13:09:45 32 22-32 (mmo l/L) Final Anion gap 01/14/2023 13:09:45 8 7-15 (mmol /L) Final Glucose 01/14/2023 13:09:45 117 70-120 (mg /dL) Final Calcium 01/14/2023 13:09:45 9.4 8.4-10.2 ( mg/dL) Final Performing Location [facility] [place] [address] [place] [id number]
--- OUTSIDE RECORDS SUMMARY | 2023-04-15 03:28 | External Medical Summary | Summary of Care ---
Author Name Unknown Organization [facility] Address [address] [place] [address] Phone [phone] Care Team Providers Care Payroll Administrator Name Role Phone BinhMichael Primary Care Provider [phone] Reason for Visit * Reason Comments Follow Up Encounter Details Date Type Department Care Team (Late st Contact Info) Description 01/14/2023 2:00 PM EDT Office Visit Cardiology, [facility] [address] [facility] [place] [address] Senait Rodriguez CRNP [address] [facility] [place] [place] [facility] [address] Persistent atrial fibrillation (HCC)*; Chronic diastolic congestive [...] (HCC),HTN, goal below 140/90,PVD (peripheral vascular disease) ([facility]) Take 1 Tablet by mouth in the morning. 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 45 Capsule 1 01/12/2023 Active Atorvastatin Calcium 20 MG Oral Tablet (Lipitor)Indications: PVD (peripheral vascular disease) ([facility]) Take 1 Tablet by mouth in the [...] mRNA, LNP-s, No Pre serve, 2-Dose Series (zSoup) 01/08/2021,06/04/2020,05/14/2020 COVID-19, LNP-s, No Preserve , Josr-sucrose, [...] maintenance dose of 40 mg daily [facility] Cardiology: (ask to be connected to [facility] cardiology) documented in this encounter Progress Notes * Senait Rodriguez SEASONER - 01/14/2023 2:00 PM EDT Cardiology Outpatient Visit 01/14/2023 Primary Face Cleaner: Dr. Jacksno Past medical history: Permanent atrial fibrillation, not [...] performed [place]resh [place] [facility] [place]NAL W/ BANDING 1977 Hemorrhoid(s) Ligation [...] well controlled today in office. Patient asymptomatic. -[id number] score of 4 (age 1, CHF, PVD), [...] May benefit from increasein maintenance dose. 2. Previously started on Jardiance, blood work pending- should [...] normal maintenance dose of 40 mg daily [facility] Cardiology: (ask to be connected to [facility] cardiology) The patient agrees to [...] This chart was completed in part utilizing [employer] Speech Voice Recognition Software. Grammatical errors, random [...] Lab Derrick Rivas [address] [place] [address] Rob Sleep Med Home Study Derrick [address] [place] [address] 02/02/2023 1:30 PM EST Hospital Encounter ENDO [facility], Endoscopy Room [facility] [address] [place] [phone] Lonnie Hillman MD [address] [place] [address] 02/02/2023 1:30 PM EST - 02/02/2023 2:30 PM EST Surgery ENDO [facility], Endoscopy Room [facility] [address] [place] [phone] Lonnie Hillman MD [address] [place] [address] COLONOSCOPY FLEXIBLE PROXIMAL DIAGNOSTIC 03/18/2023 2:15 PM EST Office Visit Dermatology [facility] [address] [facility] [place] [address] Smith Pearson MD [address] [facility] [place] [address] 07/09/2023 1:20 PM EDT Office Visit Family Practice [facility] [address] [place] [address] Ingris Rodriguez DO [address] [place] [address] 07/19/2023 1:00 PM EDT Office Visit Cardiology, [facility] [address] [place] [address] Senait Rodriguez CRNP [address] [place] [address] Scheduled Procedures Name Priority Associated Diagnoses Date/Ti [...] this encounter Medical Devices Implanted Type Area On Call Device Identifier Shelf Expiration Date Model / Serial / Lot Lens 15.0 Sa60at - [id number] Implanted:Qty: 1 on 12/07/2007 at [facility] Right: Eye CLAUDE : SURGICAL 02/20/2012 SA60AT / [id number] / Lens 15.0 Sa60at - [id number] Implanted:Qty: 1 on 01/12/2008 at OR [facility] Left: Eye CLAUDE : SURGICAL 07/20/2012 SA60AT / [id number] / Stent Viab [id number] - [id number] Implanted:Qty: 1 on 06/09/2017 [place] [facility] [place]: [employer] 10/12/2019 [id number] / / documented as of this encounter [...] the patient have Health Care Power of Side Puller? No Full Code 01/12/2008 11:07 AM 01/12/2008 3:54 PM Care Teams Payroll Administrator Relationship Specialty Start Date End Date Michael Purcell DO [address] [place] [place] [address] PCP - General Family Medicine 01/07/21 documented as of this encounter"
--- OUTSIDE RECORDS SUMMARY | 2023-04-15 03:28 | External Medical Summary | Summary of Care ---
Author Name Unknown Organization [facility] Address [address] [place] [facility] [place] [address] Phone [phone] Care Team Providers Care Agriculture Intern Name Role Phone BinhMichael israel Primary Care Provider [phone] Reason for Visit * Reason Onset Date Comments Information 01/15/2023 Encounter Details Date Type Department Care Team (Late st Contact Info) Description 01/15/2023 Refill Cardiology, [facility] [address] [place] [address] Senait Rodriguez CRNP [address] [place] [address] Chronic diastolic congestive heart failure (HCC)* Allergies Active Allergy Reactions Criticality Noted Date Comments Manuel Inhibitors Cough 03/23/2014 Amlodipine Besylate Rash Low 11/15/2012 Caused edema and rash on ankles Nutmeg Oil (Myristica Oil) 5 Other Allergy (See Comments) Rash 06/14/2017 Wool Adhesive Tape 06/18/2014 documented as of this encounter (statuses as of 01/21/2023) Medications Medication Sig Dispensed Refills Start Date [...] (HCC),HTN, goal below 140/90,PVD (peripheral vascular disease) ([facility]) Take 1 Tablet by mouth in the morning. 90 Tablet 1 01/12/2023 Active Tamsulosin HCl 0.4 MG Oral Capsule (Flomax)Indication s:BPH with obstruction/lower urinary tract symptoms Take 1 Capsule by mouth in the morning. 45 Capsule 1 01/12/2023 Active Atorvastatin Calcium 20 MG Oral Tablet (Lipitor)Indicatio ns:PVD (peripheral vascular disease) ([facility]) Take 1 Tablet by mouth in the morning. 90 Tablet 1 01/12/2023 Active Empagliflozin 25 MG Oral Tablet (Jardiance) Take 1 Tablet by mouth in the morning. 90 Tablet 3 01/20/2023 Active Empagliflozin 10 MG Oral Tablet (Jardiance) Take 1 Tablet by mouth in the morning. 90 Tablet 3 10/01/2022 3 Discontinued documented as of this encounter (statuses as of 01/21/2023) Active Problems Problem Noted Date Diagnosed Date [...] as of this encounter (statuses as of 01/21/2023) Resolved Problems Problem Noted Date Diagnosed Date Resolved Date Deep venous thrombosis of femoral vein 06/10/2017 06/10/2017 Effort syncope 03/06/2014 12/24/2016 Senile nuclear cataract 12/01/200705/2014 documented as of this encounter (statuses as of 01/21/2023) Immunizations Name Administration Dates Next Due COVID-19 mRNA, LNP-s, No Pre serve, 2-Dose Series ([employer]) 01/08/2021,06/04/2020,05/14/2020 COVID-19, LNP-s, No Preserve , Josr-sucrose, [...] Smoking Tobacco: Former Cigarettes 7 Q uit: 1959 Pipe Cigars Smokeless Tobacco: Never Comments:Smoked 1 [...] encounter Miscellaneous Notes * Telephone Encounter - Salome Grace LPN - 01/21/2023 8:38 AM EDT Spoke with patient by phone, gave information in this encounter. Verbalized understanding Agreed to plan of care. Pt drives to [facility] to sampler pickup his medications from the [facility]. He will use current supply of Jardiance and sampler pickup increased dose when he travels to [place] for other meds/refills. Pt agreed to have lab work per order. * Telephone Encounter - Senait Rodriguez CRNP - 01/20/2023 2:22 PM EDT Attempted to call patient to follow up regarding DTP and med changes. No answer- asked patient to call [phone] number. Please relay message below. KM Brower * Telephone Encounter - Senait Rodirguez CRNP - 01/15/2023 12:26 PM EDT Please follow up with patient. I had him increase his Lasix yesterday to 40 mg BID x3 days-- I want to make sure he was clear withthe instructions and made this change. I also looked at his BMP results. I want him to increase his Jardiance to 25 mg daily-- new Rx will be sent if he is agreeable. Pended. BMP in 1 week. KM Brower documented in this encounter Plan of Treatment Upcoming Encounters Date Type Department Care Team (Latest Contact Info) Description 01/29/2023 10:00 AM EST PulmDiagnostic Sleep Lab [facility] [address] [place] [address] Rob Sleep Med Home Study [facility] [address] [place] [address] 02/02/2023 1:30 PM EST Hospital Encounter ENDO [facility], Endoscopy Room [facility] [address] [place] [phone] Lonnie Hillman MD [address] [place] [address] 02/02/2023 1:30 PM EST - 02/02/2023 2:30 PM EST Surgery ENDO [facility], Endoscopy Room [facility] [address] [place] [phone] Lonnie Hillman MD [address] [place] [address] COLONOSCOPY FLEXIBLE PROXIMAL DIAGNOSTIC 03/18/2023 2:15 PM EST Office Visit Dermatology [facility] [place] [address] [facility] [place] [address] Smith Pearson MD [address] [facility] [address] 07/09/2023 1:20 PM EDT Office Visit Family Practice [facility] [address] [facility] [place] [address] Ingris Rodriguez DO [address] [place] [address] 07/19/2023 1:00 PM EDT Office Visit Cardiology, [facility] [address] [facility] [place] [address] Senait Rodriguez CRNP [address] [place] [address] Scheduled Orders Name Type Priority Associated Diagnoses Orde r Schedule BASIC METABOLIC PANEL Lab Routine Chronic diastolic congestive heart failure (HCC) Expected: 01/27/2023, Expires: 01/21/2024 Scheduled Procedures Name Priority Associated Diagnoses Date/Ti [...] this encounter Medical Devices Implanted Type Area Biofuels Plant Manager Device Identifier Shelf Expiration Date Model / Serial / Lot Lens 15.0 Sa60at - [id number] Implanted:Qty: 1 on 12/07/2007 at OR [facility] Right: Eye CLAUDE : SURGICAL 02/20/2012 SA60AT / [id number] / Lens 15.0 Sa60at - [id number] Implanted:Qty: 1 on 01/12/2008 at OR [facility] Left: Eye CLAUDE : SURGICAL 07/20/2012 SA60AT / [id number] / Stent Viab [id number] - [id number] Implanted:Qty: 1 on 06/09/2017 [place]resh Perry [place] [facility] [place] [facility] [employer] 10/12/2019 [id number] / / documented as of this encounter Visit Diagnoses Diagnosis Chronic diastolic congestive heart failure (HCC)- Primary Chronic diastolic heart failure Rectal bleeding Hemorrhage of rectum and anus [...] the patient have Health Care Power of Pot Pusher? No Full Code 01/12/2008 11:07 AM 01/12/2008 3:54 PM Care Teams Agriculture Intern Relationship Specialty Start Date End Date Michael Purcell DO [address] [place] [address] PCP - General Family Medicine 01/07/21 documented as of this encounter
--- OUTSIDE RECORDS SUMMARY | 2023-04-15 03:28 | External Medical Summary ---
Author Name Unknown Address Unknown Organization [id number]:LABORATORY [facility] - [address] [facility] [address] Laboratory Report Ordering Provider Test Date Status RAVI FOSTER 01/14/2023 13:09:45 Final Observation Date Value Abnormality Reference (Units ) Status SYNC LEUKOCYTES IN BLOOD BY AUTOMATED COUNT 01/14/2023 13:09:45 6.76 4.00-10.80 (K/uL) Final Segs 01/14/2023 13:09:45 70.4 40.0-75.0 (%) Final Lymphs % 01/14/2023 13:09:45 14.5 Below low normal 18.0-42.0 (%) Final Monos 01/14/2023 13:09:45 11.5 Above high normal 1.0-11.0 (%) Final Eosinophils 01/14/2023 13:09:45 2.7 0.0-6.0 (%) Final Basos 01/14/2023 13:09:45 0.6 0.0-2.0 (%) Final Immature Granulocyte, Percent 01/14/2023 13:09:45 0.3 0.0-2.0 (%) Final Absolute Segs 01/14/2023 13:09:45 4.76 1.80-7.70 (K/uL) Final Lymphs, absolute 01/14/2023 13:09:45 0.98 Below low normal 1.00-4.80 (K/ul) Final Monos, Abs 01/14/2023 13:09:45 0.78 0.00-1.10 (K/uL) Final Eos, Abs 01/14/2023 13:09:45 0.18 0.00-0.70 (K/uL) Final Basos, Abs 01/14/2023 13:09:45 0.04 0.00-0.20 (K/uL) Final Immature Granulocytes, Number 01/14/2023 13:09:45 0.02 0.00-0.20 (K/uL) Final Performing Location LABORATORY [facility] - [facility] [place] [address]
--- OUTSIDE RECORDS SUMMARY | 2023-04-15 03:28 | External Medical Summary | Summary of Care ---
Author Name Unknown Organization [facility] Address [address] [place] [facility] [place] [address] Phone [phone] Care Team Providers Care Digital Advertising Analyst Name Role Phone BinhMichael Primary Care Provider Reason for Visit * Reason Comments Follow Up Encounter Details Date Type Department Care Team (Late st Contact Info) Description 01/14/2023 2:00 PM EDT Office Visit Cardiology, [facility] [address] [facility] [place] [address] Senait Rodriguez CRNP [address] [facility] [address] Persistent atrial fibrillation (HCC)*; Chronic diastolic congestive [...] goal below 140/90,PVD (peripheral vascular disease) ([facility]) Take 1 Tablet by mouth in the morning. 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 45 Capsule 1 01/12/2023 Active Atorvastatin Calcium 20 MG Oral Tablet (Lipitor)Indications: PVD (peripheral vascular disease) ([facility]) Take 1 Tablet by mouth in the [...] mRNA, LNP-s, No Pre serve, 2-Dose Series ([employer]) 01/08/2021,06/04/2020,05/14/2020 COVID-19, LNP-s, No Preserve , Josr-sucrose, [...] normal maintenance dose of 40 mg daily [facility] Cardiology: (ask to be connected to [facility] cardiology) documented in this encounter Progress Notes * Senait Rodriguez COLLATOR OPERATOR - 01/14/2023 2:00 PM EDT Cardiology Outpatient Visit 01/14/2023 Primary Title Lawyer: Dr. Jackson Past medical history: Permanent atrial [...] performed by Naresh Perry MD at [place] [facility] [place] HEMORRHOIDECTOMY, INTERNAL W/ BANDING [...] well controlled today in office. Patient asymptomatic. -[id number] score of 4 (age 1, CHF, PVD), [...] normal maintenance dose of 40 mg daily [facility] Cardiology: (ask to be connected to [facility] cardiology) The patient agrees to the above [...] This chart was completed in part utilizing [employer] Speech Voice Recognition Software. Grammatical errors, random [...] Lab [facility] [address] [place] [address] Rob Sleep Med Home Study [facility]rick [address] [place] [address] 02/02/2023 1:30 PM EST Hospital Encounter ENDO [facility], Endoscopy Room [facility] [address] [place] [phone] Lonnie Hillman MD [address] [place] [address] 02/02/2023 1:30 PM EST - 02/02/2023 2:30 PM EST Surgery ENDO [facility], Endoscopy Room [facility] [address] [place] [phone] Lonnie Hillman MD [address] [place] [address] COLONOSCOPY FLEXIBLE PROXIMAL DIAGNOSTIC 03/18/2023 2:15 PM EST Office Visit Dermatology [facility] [address] [facility] [place] [address] Smith Pearson MD [address] [facility] [place] [address] 07/09/2023 1:20 PM EDT Office Visit Family Practice [facility] [address] [place] [address] Ingris Rodriguez DO [address] [place] [address] 07/19/2023 1:00 PM EDT Office Visit Cardiology, [facility] [address] [place] [address] Senait Rodriguez CRNP [address] [place] [address] Scheduled Procedures Name Priority Associated Diagnoses Date/Ti [...] this encounter Medical Devices Implanted Type Area Histology Manager Device Identifier Shelf Expiration Date Model / Serial / Lot Lens 15.0 Sa60at - [id number] Implanted:Qty: 1 on 12/07/2007 at OR [facility] Right: Eye CLAUDE : SURGICAL 02/20/2012 SA60AT / [id number] / Lens 15.0 Sa60at - [id number] Implanted:Qty: 1 on 01/12/2008 at OR [facility] Left: Eye CLAUDE : SURGICAL 07/20/2012 SA60AT / [id number] / Stent Viab [id number] - [id number] Implanted:Qty: 1 on 06/09/2017 by Naresh Perry MD at [place] [facility] Left: SFA [employer] 10/12/2019 [id number] / / documented as of this encounter [...] the patient have Health Care Power of Custodian Athletic Equipment? No Full Code 01/12/2008 11:07 AM 01/12/2008 3:54 PM Care Teams Digital Advertising Analyst Relationship Specialty Start Date End Date Michael Purcell DO [address] [facility] [place] [address] PCP - General Family Medicine 01/07/21 documented as of this encounter"
--- OUTSIDE RECORDS SUMMARY | 2023-04-15 03:28 | External Medical Summary | Summary of Care ---
Author Name Unknown Organization [facility] Address [address] [place] [facility] [place] [address] Phone [phone] Care Team Providers Care Hot Stamp Operator Name Role Phone BinhMichael Primary Care Provider [phone] Reason for Visit * Reason Onset Date Comments Information 01/15/2023 Encounter Details Date Type Department Care Team (Late st Contact Info) Description 01/15/2023 Refill Cardiology, [facility] [address] [place] [address] Senait Rodriguez CRNP [address] [facility] [address] Chronic diastolic congestive heart failure (HCC)* Allergies Active Allergy Reactions Criticality Noted Date Comments Manuel Inhibitors Cough 03/23/2014 Amlodipine Besylate Rash Low 11/15/2012 Caused edema and rash on ankles Nutmeg Oil (Myristica Oil) 5 Other Allergy (See Comments) Rash 06/14/2017 Wool Adhesive Tape 06/18/2014 documented as of this encounter (statuses as of 01/20/2023) Medications Medication Sig Dispensed Refills Start Date [...] (HCC),HTN, goal below 140/90,PVD (peripheral vascular disease) ([facility]) Take 1 Tablet by mouth in the morning. 90 Tablet 1 01/12/2023 Active Tamsulosin HCl 0.4 MG Oral Capsule (Flomax)Indication s:BPH with obstruction/lower urinary tract symptoms Take 1 Capsule by mouth in the morning. 45 Capsule 1 01/12/2023 Active Atorvastatin Calcium 20 MG Oral Tablet (Lipitor)Indicatio ns:PVD (peripheral vascular disease) ([facility]) Take 1 Tablet by mouth in the morning. 90 Tablet 1 01/12/2023 Active Empagliflozin 25 MG Oral Tablet (Jardiance) Take 1 Tablet by mouth in the morning. 90 Tablet 3 01/20/2023 Active Empagliflozin 10 MG Oral Tablet (Jardiance) Take 1 Tablet by mouth in the morning. 90 Tablet 3 10/01/2022 Discontinued documented as of this encounter (statuses as of 01/20/2023) Active Problems Problem Noted Date Diagnosed Date [...] as of this encounter (statuses as of 01/20/2023) Resolved Problems Problem Noted Date Diagnosed Date Resolved Date Deep venous thrombosis of femoral vein 06/10/2017 06/10/2017 Effort syncope 03/06/2014 12/24/2016 Senile nuclear cataract 12/01/200705/2014 documented as of this encounter (statuses as of 01/20/2023) Immunizations Name Administration Dates Next Due COVID-19 mRNA, LNP-s, No Pre serve, 2-Dose Series ([employer]) 01/08/2021,06/04/2020,05/14/2020 COVID-19, LNP-s, No Preserve , Josr-sucrose, [...] encounter Miscellaneous Notes * Telephone Encounter - Senait Rodriguez CRNP - 01/20/2023 2:22 PM EDT Attempted to call patient to follow up regarding DTP and med changes. No answer- asked patient to call [phone] number. Please relay message below. KM Brower * Telephone Encounter - Senait Rodriguez CRNP - 01/15/2023 12:26 PM EDT Please [...] PulmDiagnostic Sleep Lab [facility] [address] [place] [address] Rivas, Sleep Med Home Study [facility] [address] [address] 02/02/2023 1:30 PM EST Hospital Encounter ENDO [facility], Endoscopy Room [facility] [address] [place] [phone] Lonnie Hillman MD [address] [place] [address] 02/02/2023 1:30 PM EST - 02/02/2023 2:30 PM EST Surgery ENDO [facility], Endoscopy Room [facility] [address] [place] [phone] Lonnie Hillman MD [address] [place] [address] COLONOSCOPY FLEXIBLE PROXIMAL DIAGNOSTIC 03/18/2023 2:15 PM EST Office Visit Dermatology [facility] [address] [place] [address] Smith Pearson MD [address] [facility] [place] [address] 07/09/2023 1:20 PM EDT Office Visit Family Practice [facility] [address] [place] [address] Ingris Rodriguez DO [address] [place] [address] 07/19/2023 1:00 PM EDT Office Visit Cardiology, [facility] [address] [place] [address] Senait Rodriguez CRNP [address] [place] [address] Scheduled Orders Name Type Priority Associated Diagnoses [...] this encounter Medical Devices Implanted Type Area Ceramics Artist Device Identifier Shelf Expiration Date Model / Serial / Lot Lens 15.0 Sa60at - [id number] Implanted:Qty: 1 on 12/07/2007 at [facility] Right: Eye CLAUDE : SURGICAL 02/20/2012 SA60AT / [id number] / Lens 15.0 Sa60at - [id number] Implanted:Qty: 1 on 01/12/2008 at OR [facility] Left: Eye CLAUDE : SURGICAL 07/20/2012 SA60AT / [id number] / Stent Viab [id number] - [id number] Implanted:Qty: 1 on 06/09/2017 by Naresh Perry MD at OR [facility] Left: SFA [employer] 10/12/2019 [id number] / / documented as of this encounter [...] the patient have Health Care Power of Technical Professional? No Full Code 01/12/2008 11:07 AM 01/12/2008 3:54 PM Care Teams Hot Stamp Operator Relationship Specialty Start Date End Date Michael Purcell DO [address] [place] [address] PCP - General Family Medicine 01/07/21 documented as of this encounter
--- OUTSIDE RECORDS SUMMARY | 2023-04-15 03:28 | External Medical Summary ---
Author Name Unknown Address Unknown Organization K0G:[facility] [address] - [address] [place] [address] Laboratory Report Ordering Provider Test Date Status RAVI FOSTER 01/14/2023 13:09:45 Final Observation Date Value Abnormality Reference (Units ) Status Albumin 01/14/2023 13:09:45 3.5 Below low normal 3.8-5.0 (g/dL) Final AST (Aspartate aminotransferase) 01/14/2023 13:09:45 18 10-50 (U/L) Final Alk Phos 01/14/2023 13:09:45 85 35-130 (U/L) Final ALT (Alanine aminotransferase) 01/14/2023 13:09:45 <5 Below low normal 10-50 (U/L) Final Bilirubin, Total 01/14/2023 13:09:45 2.1 Above high normal <=1.2 (mg/dL) Final Bilirubin, Direct 01/14/2023 13:09:45 0.5 Above high normal 0.0-0.3 (mg/dL) Final Protein 01/14/2023 13:09:45 6.3 6.0-8.3 (g/dL) Final Performing Location [facility] - [address] [place] [address]
--- OUTSIDE RECORDS SUMMARY | 2023-04-15 03:28 | External Medical Summary | Summary of Care ---
Author Name Unknown Organization [facility] Address [address] [facility] [place] [address] Phone [phone] Care Team Providers Care Aboriginal Home [employer] Liaison Officer Name Role Phone Michael Purcell DO Primary Care Provider [phone] Reason for Visit * Reason Onset Date Comments Med Request 01/12/2023 Encounter Details Date Type Department Care Team (Late st Contact Info) Description 01/12/2023 Refill Family Practice [facility] [address] [place] [address] Mcihael Purcell DO [address] [place] [phone] Paroxysmal atrial fibrillation (HCC); HTN, goal below [...] mRNA, LNP-s, No Pre serve, 2-Dose Series ([employer]) 01/08/2021,06/04/2020,05/14/2020 COVID-19, LNP-s, No Preserve , Josr-sucrose, [...] Notes * Telephone Encounter - Zia Parson [facility] - 01/12/2023 1:27 PM EDT [...] PARSON * Telephone Encounter - Bhargavi Almendarez [facility] - 01/12/2023 1:17 PM EDT Caller is asking for high priority because the pt is currently waiting at the pharmacy. Did you pend patient's preferred pharmacy and medication before forwarding?no Pharmacy: [facility] [address] [place] Pending Prescriptions: Disp [...] 01/14/2023 2:00 PM EDT Office Visit Cardiology, [facility] [address] [address] Senait Rodriguez CRNP [address] [address] 01/29/2023 10:00 AM EST PulmDiagnostic Sleep Lab [facility] [address] [address] [facility], Sleep Med Home Study [facility] [address] [address] 02/02/2023 1:30 PM EST Hospital Encounter ENDO [facility], Endoscopy Room [facility] [address] [phone] Lonnie Hillman MD [address] [place] [address] 02/02/2023 1:30 PM EST - 02/02/2023 2:30 PM EST Surgery ENDO [facility], Endoscopy Room [facility] [address] [place] [phone] Lonnie Hillman MD [address] [place] [address] COLONOSCOPY FLEXIBLE PROXIMAL DIAGNOSTIC 03/18/2023 2:15 PM EST Office Visit Dermatology [facility] [address] [place] [address] Smith Pearson MD [address] [place] [address] 07/09/2023 1:20 PM EDT Office Visit [facility] [address] [place] [address] Kristin Rodriguez DO [address] [place] [address] Scheduled Procedures Name Priority Associated Diagnoses Date/Ti [...] this encounter Medical Devices Implanted Type Area Petrol Tanker Driver Device Identifier Shelf Expiration Date Model / Serial / Lot Lens 15.0 Sa60at - [id number] Implanted:Qty: 1 on 12/07/2007 at [facility] Right: Eye CLAUDE : SURGICAL 02/20/2012 SA60AT / [id number] / Lens 15.0 Sa60at - [id number] Implanted:Qty: 1 on 01/12/2008 at OR [facility] Left: Eye CLAUDE : SURGICAL 07/20/2012 SA60AT / [id number] / Stent Viab [id number] - [id number] Implanted:Qty: 1 on 06/09/2017 by Naresh Perry MD at [place] [facility] [place] Left: [facility] [employer] 10/12/2019 [id number] / / documented as of this encounter [...] the patient have Health Care Power of Cellar Supervisor? No Full Code 01/12/2008 11:07 AM 01/12/2008 3:54 PM Care Teams [employer] Liaison Officer Relationship Specialty Start Date End Date Michael Purcell DO [address] [place] [address] PCP - General Family Medicine 01/07/21 documented as of this encounter
--- OUTSIDE RECORDS SUMMARY | 2023-04-15 03:28 | External Medical Summary | Summary of Care ---
Author Name Unknown Organization [facility] Address [address] [facility] [place] [address] Phone [phone] Care Team Providers Care Relay Shop Tester Name Role Phone BinhMichael israel Primary Care Provider Reason for Visit * Reason Onset Date Comments Test Results 01/06/2023 Encounter Details Date Type Department Care Team (Late st Contact Info) Description 01/06/2023 Telephone Family Practice [facility] [address] [place] [address] Ingris Rodriguez DO [address] [place] [address] Test Results Allergies Active Allergy Reactions Criticality Noted Date Comments Manuel Inhibitors Cough 03/23/2014 Amlodipine Besylate Rash Low 11/15/2012 Caused edema and rash on ankles Nutmeg Oil (Myristica Oil) 5 Other Allergy (See Comments) Rash 06/14/2017 Wool Adhesive Tape 06/18/2014 documented as of this encounter (statuses as of 01/11/2023) Medications Medication Sig Dispensed Refills Start Date End Date Status Aspirin 81 MG TabletIndications:Fem oral artery aneurysm (HCC) Take 1 Tab by mouth daily. 30 Tab 11 04/15/2017 Active Atorvastatin Calcium 20 MG Oral Tablet (Lipitor)Indications: PVD (peripheral vascular disease) (HCC) Take by mouth 1 Tablet in the morning. 90 Tablet 3 01/05/2022 Active Metoprolol Succinate ER 25 MG Oral Tablet Extended Release 24 Hour (Toprol XL)Indications:Paroxy smal atrial fibrillation (HCC),HTN, goal below 140/90,PVD (peripheral vascular disease) ([facility]) Take by mouth 1 Tablet in the morning. 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 45 Capsule 3 01/05/2022 Active Furosemide 20 MG Oral Tablet (Lasix)Indications:Pe rsistent atrial fibrillation (HCC),Generalized edema,Chronic diastolic congestive heart failure (HCC),Dyslipidemia, goal LDL below 100,PVD (peripheral vascular disease) ([facility]),HTN, goal below 140/90 Take 2 Tablets by mouth in the morning. 180 Tablet 3 09/24/2022 Active Empagliflozin 10 MG Oral Tablet (Jardiance) Take 1 Tablet by mouth in the morning. 90 Tablet 3 10/01/2022 Active documented as of this encounter (statuses as of 01/11/2023) Active Problems Problem Noted Date Diagnosed Date [...] as of this encounter (statuses as of 01/11/2023) Resolved Problems Problem Noted Date Diagnosed Date Resolved Date Deep venous thrombosis of femoral vein 06/10/2017 06/10/2017 Effort syncope 03/06/2014 12/24/2016 Senile nuclear cataract 12/01/2007 02/0 05/2014 documented as of this encounter (statuses as of 01/11/2023) Immunizations Name Administration Dates Next Due COVID-19 mRNA, LNP-s, No Pre serve, 2-Dose Series ([employer]ikt) 01/08/2021,06/04/2020,05/14/2020 COVID-19, LNP-s, No Preserve , Josr-sucrose, Ages 12+ (Predikt) 10/10/2021 Covid-19, Mrna, Lnp-s, Pf, B ivalent, [...] Cardio next week. Pt states understanding. KM Mock, (12:40 PM) 01/14 is ok * Telephone [...] 01/14/2023 2:00 PM EDT Office Visit Cardiology, [facility] [address] [place] [address] Senait Rodriguez CRNP [address] [place] [address] 01/29/2023 10:00 AM EST PulmDiagnostic Sleep Lab [facility] [address] [place] [address] [facility] Sleep Med Home Study [facility] [address] [place] [address] 02/02/2023 1:30 PM EST Hospital Encounter ENDO [facility], Endoscopy Room [facility] [address] [place] [phone] Lonnie Hillman MD [address] [place] [address] 02/02/2023 1:30 PM EST - 02/02/2023 2:30 PM EST Surgery ENDO [facility], Endoscopy Room [facility] [address] [place] [place] [phone] Lonnie Hillman MD [address] [place] [address] COLONOSCOPY FLEXIBLE PROXIMAL DIAGNOSTIC 03/18/2023 2:15 PM EST Office Visit Dermatology [facility] [place] [address] [facility] [place] [address] Smith Pearson MD [address] [facility] [place] [address] 07/09/2023 1:20 PM EDT Office Visit Family Practice [facility] [address] [place] [address] Ingris Rodriguez DO [address] [place] [address] Scheduled Orders Name Type Priority Associated Diagnoses [...] Depression Screening 01/05/2023 01/05/2022 HbA1c 01/07/2024 01/06/2023, 042 03/2022, 01/05/2022, Additional history exists Albumin/Creatinine Ratio 01/06/2026 [...] this encounter Medical Devices Implanted Type Area Oracle Webcenter Consultant Device Identifier Shelf Expiration Date Model / Serial / Lot Lens 15.0 Sa60at - [id number] Implanted:Qty: 1 on 12/07/2007 at OR [facility] Right: Eye CLAUDE : SURGICAL 02/20/2012 SA60AT / [id number] / Lens 15.0 Sa60at - [id number] Implanted:Qty: 1 on 01/12/2008 at OR [facility] Left: Eye CLAUDE : SURGICAL 07/20/2012 SA60AT / [id number] / Stent Viab [id number] - [id number] Implanted:Qty: 1 on 06/09/2017 by Naresh Perry MD at OR [facility] [place] Left: [employer] 10/12/2019 [id number] / / documented as of this encounter [...] 2. Bilateral pleural effusions noted incidentally. Ingris TORRES ULTRASOUND documented in this encounter Visit Diagnoses [...] the patient have Health Care Power of Cutting Torch Operator? No Full Code 01/12/2008 11:07 AM 01/12/2008 3:54 PM Care Teams Relay Shop Tester Relationship Specialty Start Date End Date Michael Purcell DO [address] [address] PCP - General Family Medicine 01/07/21 documented as of this encounter
--- OUTSIDE RECORDS SUMMARY | 2023-04-15 03:29 | External Medical Summary | Summary of Care ---
Author Name Unknown Organization [facility] Address [address] [facility] [place] [address] Phone [phone] Care Team Providers Care Patient Registration Specialist Name Role Phone Michael Purcell DO Primary Care Provider + [phone] Reason for Referral * Evaluate & Treat - Unlimited Visits (Within 10 days (routine)) - Authorized Specialty Diagnoses / Procedures Referred By Kishor reyes Referred To Contact Sleep Medicine / Sleep Disorders Diagnoses Chronic diastolic heart failure (HCC) Michael Purcell DO [address] [place] [address] Referral ID Status Reason Start Date Expiration Date Visits Requested Visits Authorized [id number] Authorized Specialty Services Required 10/19/2022 2 2 Question Answer Referral Priority Within 10 days (routine) CAD SLEEP MED ADULT REFERRAL Sleep Apnea Testing and Management Does the patient snore and/or gasp at night or has been told they stop breathing at night? Unknown Reason for Visit * Reason Onset Date Comments Follow Up Pt here for a 3m f/u Immunizations 10/19/2022 Shingrix Encounter Details Date Type Department Care Team Description 10/19/2022 Office Visit Family [facility] [address] [place] [address] Michael Purcell DO [address] [place] [address] Persistent atrial fibrillation (HCC)*; Chronic diastolic heart failure (HCC); HTN, goal below 140/90; Pulmonary HTN (HCC); PVD (peripheral vascular disease) (HCC); Bilateral leg edema; Prediabetes; Need for vaccination for zoster Allergies Active Allergy Reactions Severity Noted Date Comments Manuel Inhibitors Cough 03/23/2014 Amlodipine Besylate Rash Low 11/15/2012 Caused edema and rash on ankles Nutmeg Oil (Myristica Oil) 5 Other Allergy (See Comments) Rash 018 Wool Adhesive Tape 06/18/2014 documented as of this encounter (statuses as of 11/02/2022) Medications Medication Sig Dispensed Refills Start Date [...] as of this encounter (statuses as of 11/02/2022) Active Problems Problem Noted Date Persistent atrial fibrillation Chronic diastolic heart failure 10/20/19 23 Pulmonary HTN 10/19/2022 Bilateral leg edema 10/19/2022 Prediabetes 01/06/2022 Gilbert syndrome 01/06/2022 Melanoma in situ of trunk 01/05/2022 PVD (peripheral vascular disease) 2017 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 Paroxysmal atrial fibrillation 5 MANUEL inhibitor intolerance 03/23/2014 HTN, goal below 140/90 11/15/2012 documented as of this encounter (statuses as of 11/02/2022) Resolved Problems Problem Noted Date Resolved Date Deep venous thrombosis of femoral vein 8 06/10/2017 Effort syncope 03/06/2014 12/24/2016 Senile nuclear cataract 12/01/2007 04/24/19 15 documented as of this encounter (statuses as of 11/02/2022) Immunizations Name Administration Dates Next Due COVID-19 mRNA, LNP-s, No Pre serve, 2-Dose Series ([employer]) 01/08/2021,06/04/2020,05/14/2020 COVID-19, LNP-s, No Preserve , Josr-sucrose, Ages 12+ ([employer]) 10/10/2021 Covid-19, Mrna, Lnp-s, Pf, B ivalent, 30 Mcg, IM, 12 yrs and above ([employer]) 07/29/2022 Pneumococcal Conjugate Vacc, 13 Valent (Prevnar) 12/24/2016 Pneumococcal Polysaccharide PPV23 (Pneumovax) 07/14/2002 Seasonal Influenza, Quadriva lent Hd (Fluzone Hd) 01/05/2022,01/02/2021 Seasonal Influenza, Quadriva lent, No Preserve, 6 Mons & Above, IM 12/27/2017 Seasonal Influenza, Quadriva lent, No Preserve, Adjuvanted, 65+ Yrs, IM 01/01/2020 Seasonal Influenza, Quadriva lent, No Preserve, IM [...] uit: 1959 Pipe Cigars Smokeless Tobacco: Never Tobacco Cessation:Counseling Given: Not Answered Comments:Smoked 1 -2 packs/day when smoking Alcohol Use Standard Drinks/Week Comments Yes 0 (1 standard drink = 0.6 oz pur e alcohol) glass of wine now and then Food Insecurity Answer Date Recorded Within the past 12 months, y ou worried that your food would run out before you got money to buy more. Never true 10/19/2022 Within the past 12 months, t he food you bought just didn't last and you didn't have money to get more. Never true 10/19/2022 Sex Assigned at Date Recorded Male 12/23/2021 12:50 AM EDT Job Start Date Occupation Industry Not on file Not on file Not on file documented as of this encounter Last Filed Vital Signs Vital Sign Reading Time Taken Comments Blood Pressure 134/76 10/19/2022 2:30 PM EDT Pulse 74 10/19/2022 2:30 PM EDT Temperature 36.8 C (98.2 F) 10/19/2022 2:30 PM ED T Respiratory Rate 16 10/19/2022 2:30 PM EDT Oxygen Saturation 96% 10/19/2022 2:30 PM EDT Inhaled Oxygen Concentration - - Weight 100.9 kg (222 lb 6.4 oz) 10/19/2022 2:30 PM EDT Height 175.6 cm (5' 9.13") 10/19/2022 2:30 PM ED T Body Mass Index 32.72 10/19/2022 2:30 PM EDT documented in this encounter Functional [...] shopping? (15 years old or older) No 11/22/20 14 Cognitive Status Response Date of Assessm ent Because of a physical, menta l, or emotional condition, do you have serious difficulty concentrating, remembering, or making decisions? (5 years old or older No 02/10/2014 documented as of this encounter Patient Instructions * Patient Instructions* Andra Flores LPN - 10/19/2022 2:29 PM EDT ~~PATIENT INSTRUCTIONS FOR SHINGRIX VACCINE~~ Possible side effects of Shingrix vaccine, (shingles), are usually mild and can include: 1. Soreness or redness at injection site 2. Low grade fever 3. Body aches You may use a fever / pain reducing medication as needed for these symptoms. LET YOUR DOCTOR KNOW IMMEDIATELY IF YOU HAVE DIFFICULTY BREATHING OR SWALLOWING, EXPERIENCE ITCHINGOF FEET OR HANDS, HAVE SWELLING OF EYES, FACE OR INSIDE OF NOSE. documented in this encounter Progress Notes * Michael Purcell DO - 10/19/2022 2:58 PM EDT Images from the original note were not included. History of Present Illness Jett Fraser is a 87 year old male that presents for Follow Up (Pt here for a 3m f/u) and Immunizations (Shingrix) Patient is an 87-year-old male with history of atrial fibrillation, chronic diastolic heart failure, hypertension, pulmonary hypertension, PVD, and prediabetes. Patient feels generally well and is following a diet exercise program. Patient complains of chronic bilateral leg edema. Patient denies fat igue fever chills or sweats. Patient denies nasal congestion sore throat or earache. Patient deniescough or sputum. Patient denies chest pain shortness breath palpitations Patient denies abdominal pain nausea vomiting diarrhea constipation. Patient denies urinary frequency dysuria urgency or hematuria. Patient denies neck or back pain, joint pain or swelling. Patient denies headache dizziness weakness or numbness. Patient denies skin rash or lesions. Review systems otherwise negative Physical Exam Vitals: 10/19/22 1430 Temp: 36.8 C (98.2 F) Pulse: 74 Resp: 16 SpO2: 96% BP: 134/76 BMI: 32.72 BP Readings from Last 3 Encounters: 10/19/22 134/76 10/01/22 144/82 09/29/22 130/86 Wt Readings from Last 3 Encounters: 10/19/22 100.9 kg (222 lb 6.4 oz) 10/01/22 103 kg (227 lb) 09/29/22 103.1 kg (227 lb 6.4 oz) BMI Readings from Last 3 Encounters: 10/19/22 32.72 kg/m 10/01/22 33.40 kg/m 09/29/22 33.45 kg/m General: alert, healthy and no distress Head: Normocephalic, No masses, lesions, tenderness or abnormalities Eye Exam: PERRLA, extraocular movements intact, conjunctiva are pink and non- injected, sclera clear Ears: External ears normal, Canals clear, TM's Normal Nose: no mucosal erythema, no mucosal edema, no purulent discharge Oropharynx: no exudate, no erythema, lips, buccal mucosa, and tongue normal and mucous membranes are moist Neck: supple, no adenopathy, no bruits, thyroid normal size, non-tender, without nodularity Lymph: no palpable lymphadenopathy Heart: Irregularly irregular, no murmur, no gallop Lungs: chest symmetric with normal AP diameter, no chest deformities noted, no chest wall tenderness, lungs clear Pulses: carotid=2/4 w/o bruits Abdomen: abdomen soft, non-tender, normal bowel sounds and no masses or organomegaly Back: back symmetric, no curvature, no costovertebral angle tenderness, range of motion is normal Extremities:2/4 bilateral lower extremity edema, no cyanosis or clubbing Neuro Exam: alert & oriented x 3 with fluent speech, no focal motor/sensory deficits, gait normal, reflexes normal and symmetric Skin: skin color, texture, turgor are normal, no rashes or significant lesions I have reviewed the following results: BMP Assessment and Plan Persistent atrial fibrillation (HCC) Continue present medication Metoprolol succinate ER 25 mg 1 tab once daily Chronic diastolic heart failure (HCC) Continue present medication Lasix 40 mg once daily Jardiance 10 mg 1 tab once daily - SLEEP MEDICINE REFERRAL OP HTN, goal below 140/90 Continue present medication Metoprolol succinate ER 25 mg 1 tab once daily Cardiac diet Pulmonary HTN (HCC) Stable PVD (peripheral vascular disease) (HCC) Aspirin 81 mg 1 tab once daily Bilateral leg edema Lasix 40 mg once daily Compression stocking Prediabetes Reduced caloric intake diabetic diet Need for vaccination for zoster - ZOSTER VACCINE RECOMB, 2 DOSE, IM (SHINGRIX) Wrap-Up Time: I spent a total of 40-54 minutes (exact time 40 mins) on the date of service in preparation, delivery, and documentation of the care provided to Jett Fraser excluding any time spent in the performance of separately billed services. * Andra Flores LPN - 10/19/2022 2:29 PM EDT Does the patient have active shingles? No If, yes, patient must wait to receive vaccine till after rash is gone. Does the patient have an illness today with a fever more than 101?F? No Has the patient ever had a serious allergic reaction after receiving a vaccination? No Has the patient had a blood test showing they are not immune to Chicken Pox (rare)? No If yes, should get Chicken pox vaccine instead of shingrix. Verified patient has prescription/drug coverage. Patient has been informed that [employer] copays are close to $0. In most cases copays will be around $10. The maximum co-pay patients may get could as high as $200. no Shingrix Vaccine Information Sheet has been provided. Andra Flores LPN 10/19/2022 2:29 PM IMMUNIZATION ADMINISTRATION DOCUMENTATION Time Out Procedure Performed: Yes Patient Identified (Ask Name/Date of ): Yes Patient allergic to latex?No VFC Stock? No Immunization(s) verified: Yes, Immunization Name: Shingrix, VIS Sheet(s) given: Yes Verified Side and Site: Yes Verified Shot(s) with Parent(s)/Patient: Yes Shingrix was administered per clinic protocol. Patient received the Shingrix VIS (Vaccine Information Sheet). Andra Flores LPN, 10/19/2022, 2:29 PM documented in this encounter Plan of Treatment Upcoming Encounters Date Type Specialty Care Team Description 12/15/2022 Office Visit Sleep Disorders Mame Wagner, [address] [place] [address] 01/25/2023 Office Visit Dermatology Cassandra English MD 02/02/2023 Hospital Encounter Endoscopy Lonnie Hillman MD [address] [place] [address] 02/02/2023 Surgery Endoscopy Lonnie Hillman MD [address] [place] [address] COLONOSCOPY FLEXIBLE PROXIMAL DIAGNOSTIC Scheduled Procedures Name Priority Associated Diagnoses Date/Ti me COLONOSCOPY FLEXIBLE PROXIMA L DIAGNOSTIC Rectal bleeding Melena 02/02/2023 1:30 PM EST ESOPHAGOGASTRODUODENOSCOPY ( EGD), FLEXIBLE, TRANSORAL, DIAGNOSTIC Rectal bleeding Melena 02/02/2023 1:30 PM EST Scheduled Referrals Name Type Priority Associated Diagnoses Orde r Schedule SLEEP MEDICINE REFERRAL OP Referral Within 10 days (routine) Chronic diastolic heart failure (HCC) Ordered: 10/19/2022 Health Maintenance Due Date Last Done Comments Influenza Vaccine (FLU shot) (#1) 2022 01/05/2022, 01/02/2021, 01/01/2020, Additional history exists Depression Screening, Annual for Pts 12 and Over 01/05/2023 01/05/2022 HbA1c 07/11/2023 07/10/2022, 12/20, 01/02/2021 Albumin/Creatinine Ratio 01/05/2025 01/05/2022, 08/21 DTaP,Tdap,and Td Vaccines (3 - Td or Tdap) 12/31/2029 01/01/2020, 07/14/2009 Pneumococcal Vaccine: 65+ Years Completed 12/24/2016, 07/14/2002 COVID-19 Vaccine Completed 07/29/2022, , 01/08/2021, Additional history exists Zoster Vaccines Completed 10/19/2022, 06/21, 01/14/2012 GARDASIL-HPV IMMUNIZATION SERIES Aged Out No longer eligible based on patient's age to complete this topic Hepatitis B Aged Out No longer eligi ble based on patient's age to complete this topic MENINGOCOCCAL (MENACTRA/MENVEO) Aged Out No longer eligible based on patient's age to complete this topic documented as of this encounter Medical Devices Implanted Type Area Water Meter Installer Device Identifier Shelf Expiration Date Model / Serial / Lot Lens 15.0 Sa60at - [id number] Implanted:Qty: 1 on 12/07/2007 at [facility] Right: Eye CLAUDE : SURGICAL 02/20/2012 SA60AT / [id number] / Lens 15.0 Sa60at - [id number] Implanted:Qty: 1 on 01/12/2008 at OR [facility] Left: Eye CLAUDE : SURGICAL 07/20/2012 SA60AT / [id number] / Stent Viab [id number] - [id number] Implanted:Qty: 1 [place] 06/09/2017 [place] [facility] [place]: [facility] [employer] 10/12/2019 [id number] / / documented as of this encounter Visit Diagnoses Diagnosis Persistent atrial fibrillation (HCC)- Primary Atrial fibrillation Chronic diastolic heart failure (HCC) Chronic diastolic heart failure HTN, goal below 140/90 Unspecified essential hypertension Pulmonary HTN (HCC) Other chronic pulmonary heart diseases PVD (peripheral vascular disease) (HCC) Peripheral vascular disease, unspecified Bilateral leg edema Edema Prediabetes Other abnormal glucose Need for vaccination for zoster Need for prophylactic vaccination and inoculation against other viral diseases Rectal bleeding Hemorrhage of rectum and anus [...] the patient have Health Care Power of Abattoir Manager? No Full Code 01/12/2008 11:07 AM 01/12/2008 3:54 PM Care Teams Patient Registration Specialist Relationship Specialty Start Date End Date Michael Purcell DO [address] [place] [address] PCP - General Family Medicine 01/07/21 documented as of this encounter
--- OUTSIDE RECORDS SUMMARY | 2023-04-15 03:29 | External Medical Summary ---
Author Name Unknown Address Unknown Organization [id number]:[facility] [place] - [address] [place] [address] Laboratory Report Ordering Provider Test Date Status KRISTINRAVI 01/06/2023 12:56:12 Final Observation Date Value Abnormality Reference (Units ) Status TSH 01/06/2023 12:56:12 1.85 0.27-4.20 (uIU/mL) Final Performing Location [facility] [place] - [address] [place] [address]
--- OUTSIDE RECORDS SUMMARY | 2023-04-15 03:29 | External Medical Summary ---
Author Name Unknown Address Unknown Organization [id number]:[facility]AT[facility] [place] [facility] - [address] [place] [id number] Laboratory Report Ordering Provider Test Date Status RAVI FOSTER 01/06/2023 12:56:12 Final Observation Date Value Abnormality Reference (Units ) Status BUN 01/06/2023 12:56:12 25 Above high normal 6-20 (mg/dL) Final Creatinine 01/06/2023 12:56:12 0.9 0.6-1.2 (mg/dL) Final Glomerular filtration rate/1.73 sq M.predicted [Volume Rate/Area] in Serum, Plasma or Blood by Creatinine-based formula (CKD-EPI) 01/06/2023 12:56:12 82 >=60 (mL/min) Final eGFR is calculated based on the CKD-EPI 2020 equation SODIUM 01/06/2023 12:56:12 142 135-146 (m mol/L) Final Potassium 01/06/2023 12:56:12 5.6 Above high normal 3. 5-5.1 (mmol/L) Final Cl 01/06/2023 12:56:12 101 98-107 (mm ol/L) Final CO2 01/06/2023 12:56:12 32 22-32 (mmo l/L) Final Anion gap 01/06/2023 12:56:12 9 7-15 (mmol /L) Final Glucose 01/06/2023 12:56:12 104 70-120 (mg /dL) Final Albumin 01/06/2023 12:56:12 3.6 Below low normal 3.8 -5.0 (g/dL) Final AST (Aspartate aminotransferase) 01/06/2023 12:56:12 19 10-50 (U/L) Fin al Alk Phos 01/06/2023 12:56:12 91 35-130 (U/ L) Final Bilirubin, Total 01/06/2023 12:56:12 4.8 Above high no rmal <=1.2 (mg/dL) Final Calcium 01/06/2023 12:56:12 9.5 8.4-10.2 ( mg/dL) Final Protein 01/06/2023 12:56:12 5.8 Below low normal 6.0 -8.3 (g/dL) Final ALT (Alanine aminotransferase) 01/06/2023 12:56:12 17 10-50 (U/L) Fred orr Performing Location [facility] [place] [facility] [place] [address]
--- OUTSIDE RECORDS SUMMARY | 2023-04-15 03:29 | External Medical Summary ---
Author Name Unknown Address Unknown Organization [id number]:LABORATORY [facility] [place] - [address] [facility] [address] Laboratory Report Ordering Provider Test Date Status RAVI FOSTER 01/06/2023 12:56:12 Final Observation Date Value Abnormality Reference (Units ) Status HbA1C 01/06/2023 12:56:12 6.3 Above high normal 4. 0-5.6 (%) Final The use of HbA1c to monitor glycemic status is based on normal hemoglobin and HbA composition. This test should not be used in patients with abnormal hemoglobin that affects the half life of the red blood cell or the in vivo glycation rates. Glucose, estimated average 01/06/2023 12:56:12 134 Above high normal <126 (mg/dL) Fred orr Performing Location LAB[facility]ATORY [facility] [place] - [address] [facility] [address]
--- OUTSIDE RECORDS SUMMARY | 2023-04-15 03:29 | External Medical Summary | Summary of Care ---
Author Name Unknown Organization [facility] Address [address] [place] [address] Phone [phone] Care Team Providers Care It Sales Executive Name Role Phone BinhMichael Primary Care Provider Reason for Visit * Reason Comments Outpatient Testing Encounter Details Date Type Department Care Team Description 01/06/2023 Laboratory [facility] [address] [facility] [phone] [facility] [address] [facility] [address] HTN, goal below 140/90; Persistent atrial fibrillation (HCC); Prediabetes; Decreased breath sounds in left mid-lung field Allergies Active Allergy Reactions Severity Noted Date Comments Manuel Inhibitors Cough 03/23/2014 Amlodipine Besylate Rash Low 11/15/2012 Caused edema and rash on ankles Nutmeg Oil (Myristica Oil) 5 Other Allergy (See Comments) Rash 018 Wool Adhesive Tape 06/18/2014 documented as of this encounter (statuses as of 01/06/2023) Medications Medication Sig Dispensed Refills Start Date [...] as of this encounter (statuses as of 01/06/2023) Active Problems Problem Noted Date Persistent atrial fibrillation 3 Chronic diastolic heart failure 10/20/19 23 Pulmonary HTN 10/19/2022 Bilateral leg edema 10/19/2022 Prediabetes 01/06/2022 Gilbert syndrome 01/06/2022 Melanoma in situ of trunk 01/05/2022 PVD (peripheral vascular disease) 2017 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 Paroxysmal atrial fibrillation 5 MANUEL inhibitor intolerance 03/23/2014 HTN, goal below 140/90 11/15/2012 documented as of this encounter (statuses as of 01/06/2023) Resolved Problems Problem Noted Date Resolved Date Deep venous thrombosis of femoral vein 8 06/10/2017 Effort syncope 03/06/2014 12/24/2016 Senile nuclear cataract 12/01/2007 04/24/19 15 documented as of this encounter (statuses as of 01/06/2023) Immunizations Name Administration Dates Next Due COVID-19 mRNA, LNP-s, No Pre serve, 2-Dose Series ([facility]) 01/08/2021,06/04/2020,05/14/2020 COVID-19, LNP-s, No Preserve , Josr-sucrose, Ages 12+ ([facility]) 10/10/2021 Covid-19, Mrna, Lnp-s, Pf, B ivalent, [...] Encounters Date Type Specialty Care Team Description 01/29/2023 PulmDiagnostic Sleep Disorders [facility], Sleep Med Home Study [facility] [address] [place] [address] 02/02/2023 Hospital Encounter Endoscopy Lonnie Hillman MD [address] [place] [address] 02/02/2023 Surgery Endoscopy Lonnie Hillman MD [address] [place] [address] COLONOSCOPY FLEXIBLE PROXIMAL DIAGNOSTIC 03/18/2023 Office Visit Dermatology Smith Pearson MD [address] [place] [address] 07/09/2023 Office Visit Family Medicine Ingris Rodriguez DO [address] [place] [address] Pending Results Name Type Priority Associated Diagnoses Date /Time CBC WITH WBC DIFFERENTIAL Lab Routine HTN, goal below 140/90 Persistent atrial fibrillation (HCC) Prediabetes 01/06/2023 12:56 PM EDT COMPREHENSIVE METABOLIC PANEL Lab Routine HTN, goal below 140/90 Persistent atrial fibrillation (HCC) Prediabetes 01/06/2023 12:56 PM EDT TSH WITH FREE T4 IF INDICATED Lab Routine HTN, goal below 140/90 Persistent atrial fibrillation (HCC) Prediabetes 01/06/2023 12:56 PM EDT LIPID PANEL WITH DIRECT LDL IF TG IS HIGH Lab Routine HTN, goal below 140/90 Persistent atrial fibrillation (HCC) Prediabetes 01/06/2023 12:56 PM EDT HEMOGLOBIN A1C Lab Routine HTN, goal below 140/90 Persistent atrial fibrillation (HCC) Prediabetes 01/06/2023 12:56 PM EDT BNP, NT-PRO Lab Routine Decreased breath sounds in left mid-lung field 01/06/2023 12:56 PM EDT CBC Lab Routine HTN, goal below 140/90 Persistent atrial fibrillation (HCC) Prediabetes 01/06/2023 12:56 PM EDT DIFFERENTIAL, AUTOMATED Lab Routine HTN, goal below 140/90 Persistent atrial fibrillation (HCC) Prediabetes 01/06/2023 12:56 PM EDT ALBUMIN / CREATININE RATIO, URINE Lab Routine HTN, goal below 140/90 Persistent atrial fibrillation (HCC) Prediabetes 01/06/2023 1:03 PM EDT Scheduled Procedures Name Priority Associated Diagnoses Date/Ti me COLONOSCOPY FLEXIBLE PROXIMA L DIAGNOSTIC Rectal bleeding Melena 02/02/2023 1:30 PM EST ESOPHAGOGASTRODUODENOSCOPY ( EGD), FLEXIBLE, TRANSORAL, DIAGNOSTIC Rectal bleeding Melena 02/02/2023 1:30 PM EST Health Maintenance Due Date Last Done Comments COVID-19 Vaccine ( season) 2022 07/29/2022, 10/10/2021, 01/08/2021, Additional history exists Depression Screening 01/05/2023 01/05/2022 HbA1c 07/11/2023 07/10/2022, 12/20, 01/02/2021 [...] this encounter Medical Devices Implanted Type Area Harness Installer Device Identifier Shelf Expiration Date Model / Serial / Lot Lens 15.0 Sa60at - [id number] Implanted:Qty: 1 on 12/07/2007 at [facility] Right: Eye CLAUDE : SURGICAL 02/20/2012 SA60AT / [id number] / Lens 15.0 Sa60at - [id number] Implanted:Qty: 1 on 01/12/2008 at [facility] Left: Eye CLAUDE : SURGICAL 07/20/2012 SA60AT / [id number] / Stent Viab [id number] - [id number] Implanted:Qty: 1 on 06/09/2017 by Naresh Perry MD [place] [facility] [place] Left: [facility] [employer] 10/12/2019 [id number] / / documented as of this encounter Visit Diagnoses Diagnosis HTN, goal below 140/90 Unspecified essential hypertension Persistent atrial fibrillation (HCC) Atrial fibrillation Prediabetes Other abnormal glucose Decreased breath sounds in left mid-lung field Rectal bleeding Hemorrhage of rectum and anus [...] the patient have Health Care Power of Transfer Station Attendant? No Full Code 01/12/2008 11:07 AM 01/12/2008 3:54 PM Care Teams It Sales Executive Relationship Specialty Start Date End Date Michael Purcell DO [address] [place] [address] PCP - General Family Medicine 01/07/21 documented as of this encounter
--- OUTSIDE RECORDS SUMMARY | 2023-04-15 03:29 | External Medical Summary | Summary of Care ---
Author Name Unknown Organization [facility] Address [address] [place] [address] Phone [phone] Care Team Providers Care Vascular Technologist Sonographer Name Role Phone BinhMichael garrido Primary Care Provider [phone] Reason for Visit * Reason Comments NEW PATIENT Pt here to establish care with new PCP and medication management Encounter Details Date Type Department Care Team Description 01/06/2023 Office Visit Family Practice [facility] [address] [place] [address] Ingris Doe DO [address] [place] [address] Well adult exam*; HTN, goal below 140/90; Persistent atrial fibrillation (HCC); Chronic diastolic heart failure (HCC); Prediabetes; Decreased breath sounds in left [...] mRNA, LNP-s, No Pre serve, 2-Dose Series ([employer]) 01/08/2021,06/04/2020,05/14/2020 COVID-19, LNP-s, No Preserve , Josr-sucrose, [...] Sign Reading Time Taken Comments Blood Pressure 112/76 01/06/2023 12:15 PM EDT Pulse 94 01/06/2023 12:15 PM EDT irre gular Temperature 37.2 C (99 F) 01/06/2023 12:15 PM EDT Respiratory Rate 18 01/06/2023 12:15 PM EDT Oxygen Saturation - - Inhaled Oxygen Concentration - - Weight 102.5 kg (226 lb) 01/06/2023 12:15 PM EDT Height 175.3 cm (5' 9") 01/06/2023 12:15 PM EDT Body Mass Index 33.37 01/06/2023 12:15 PM EDT documented in this [...] as of this encounter Progress Notes * Ingris Doe, DO - 01/06/2023 12:21 PM EDT Subjective: Jett Fraser is a 87 year old male. Chief Complaint Patient presents with NEW PATIENT Pt here to establish care with new PCP and medication management HPI: This is a 87 year old male with PMHx as below presents for annual well check. Cardio - a fib metoprolol, asa, heart failure - lasix, dl - statin GI - rectal bleeding Sleep med - yayo Vascular - pvd Dm - jardiance BPH - flomax Patient Active Problem List Diagnosis Code HTN, goal below 140/90 I10 Paroxysmal atrial fibrillation (HCC) I48.0 MANUEL inhibitor intolerance Z78.9 PVD (peripheral vascular disease) (HCC) I73.9 Femoral artery aneurysm (HCC) I72.4 Melanoma in situ of trunk (HCC) D03.59 Prediabetes R73.03 Gilbert syndrome E80.4 Persistent atrial fibrillation (HCC) I48.19 Chronic diastolic heart failure (HCC) I50.32 Pulmonary HTN (HCC) I27.20 Bilateral leg edema R60.0 Current Outpatient Medications Medication Sig Dispense Refill Aspirin 81 MG Tablet Take 1 Tab by mouth daily. 30 Tab 11 Atorvastatin Calcium 20 MG Oral Tablet (Lipitor) Take by mouth 1 Tablet in the morning. 90 Tablet 3 Metoprolol Succinate ER 25 MG Oral Tablet Extended Release 24 Hour (Toprol XL) Take by mouth 1 Tablet in the morning. 90 Tablet 3 Tamsulosin HCl 0.4 MG Oral Capsule (Flomax) Take by mouth 1 Capsule in the morning. 45 Capsule 3 Furosemide 20 MG Oral Tablet (Lasix) Take 2 Tablets by mouth in the morning. 180 Tablet 3 Empagliflozin 10 MG Oral Tablet (Jardiance) Take 1 Tablet by mouth in the morning. 90 Tablet 3 No current facility-administered medications for this visit. Past Medical History: Diagnosis Date HTN (hypertension) Past Surgical History: Procedure Laterality Date FEM/POP ARTERY REVASC W/ STENT+ANGIOPLASTY Left 06/09/2017 FEM/POP ARTERY REVASC W/ STENT+ANGIOPLASTY performed by Naresh Perry MD [place] [facility] [place]ORRHOIDECTOMY, INTERNAL W/ BANDING 1976 Hemorrhoid(s) Ligation REMOVAL OF APPENDIX 1950 Appendectomy REMOVE CATARACT, INSERT LENS PROSTH 12/07/07 EXTRACAPSULAR CATARACT REMOVAL WITH INTRAOCULAR LENS performed by GERONIMO GUALLPA at [facility] REMOVE CATARACT, INSERT LENS PROSTH 01/12/08 EXTRACAPSULAR CATARACT REMOVAL WITH INTRAOCULAR LENS performed by GERONIMO GUALLPA at OR [facility] REMOVE TONSILS & ADENOIDS, UNDER 12 1944 T & A, age<12 Review of patient's allergies indicates: Allergen Reactions Manuel Inhibitors Cough Nutmeg Oil (Myristica Oil) Other Allergy (See Comments) Rash Wool Tape [Adhesive Tape] Norvasc [Amlodipine Besylate] Rash Caused edema and rash on ankles Family History Problem Relation Age of Onset Other (no pertinent family hx) Other Family Status Relation Status Other (Not Specified) Social History Socioeconomic History Marital status: Spouse name: Not on file Number of children: Not on file Years of education: Not on file Highest education level: Not on file Occupational History Occupation: retired Tobacco Use Smoking status: Former Years: 7.00 Types: Cigarettes, Cigars, Pipe Quit date: 1958 Years since quittin.8 Smokeless tobacco: Never Tobacco comments: Smoked 1 -2 packs/day when smoking Vaping Use Vaping Use: Never used Substance and Sexual Activity Alcohol use: Yes Comment: glass of wine now and then Drug use: No Sexual activity: Not on file Other Topics Concern Not on file Social History Narrative Not on file Social Determinants of Health Financial Resource Strain: Not on file Food Insecurity: No Food Insecurity Worried About Running Out of Food in the Last Year: Never true Ran Out of Food in the Last Year: Never true Transportation Needs: Not on file Physical Activity: Not on file Stress: Not on file Social Connections: Not on file Intimate Partner Violence: Not on file Housing Stability: Not on file Did the patient complete the screening questionnaire for Depression: Yes. In general, compared to other people your age, what would you say that your health is? Good Does the patient have advance directives/living will? No Not Applicable Hospital ER within 30 days: No Patient is able to obtain all of his medications? Yes Patient takes medications as prescribed? Yes Tobacco screening completed today: Yes Non-smoker Alcohol screening completed today: Yes Occasionally (Socially) Spirometry: Not applicable Dental Exam: No Eye Screening: No Exercise Screening: does not exercise regularly Nutrition Assessment: Eats a balanced diet Pain Screening: Yes Are you having any pain? No Review of Systems: As per HPI all other ROS negative. Results for orders placed or performed in visit on 10/01/22 BASIC METABOLIC PANEL Result Value Ref Range BUN 21 (H) 6 - 20 mg/dL Creatinine 1.0 0.6 - 1.2 mg/dL Estimated Glomerular Filtration Rate 75 >=60 mL/min Sodium 139 135 - 146 mmol/L Potassium 4.3 3.5 - 5.1 mmol/L Chloride 100 98 - 107 mmol/L CO2 30 22 - 32 mmol/L Anion Gap 9 7 - 15 mmol/L Glucose 134 (H) 70 - 120 mg/dL Calcium 9.6 8.4 - 10.2 mg/dL Wt Readings from Last 3 Encounters: 01/06/23 102.5 kg (226 lb) 12/16/22 101.5 kg (223 lb 12.3 oz) 10/19/22 100.9 kg (222 lb 6.4 oz) Health Maintenance Due Topic Date Due COVID-19 Vaccine ( season) 2022 Depression Screening 01/05/2023 OBJECTIVE: Physical Exam: BP 112/76 | Pulse 94 Comment: irregular | Temp 37.2 C (99 F) (Tympanic) | Resp 18 | Ht 1.753 m (5' 9") | Wt 102.5 kg (226 lb) | BMI 33.37 kg/m | BSA 2.23 m General: alert, healthy, and no distress Heart: irregularly irregular Lungs: decreased breath sounds on L Extremities: bilateral 3-4+ pitting edema Well adult exam (Primary) HTN, goal below 140/90 - CBC WITH WBC DIFFERENTIAL; Future; Expected date: 01/06/2023 - COMPREHENSIVE METABOLIC PANEL; Future; Expected date: 01/06/2023 - TSH WITH FREE T4 IF INDICATED; Future; Expected date: 01/06/2023 - LIPID PANEL WITH DIRECT LDL IF TG IS HIGH; Future; Expected date: 01/06/2023 - HEMOGLOBIN A1C; Future; Expected date: 01/06/2023 - ALBUMIN / CREATININE RATIO, URINE; Future; Expected date: 01/06/2023 Persistent atrial fibrillation (HCC) - CBC WITH WBC DIFFERENTIAL; Future; Expected date: 01/06/2023 - COMPREHENSIVE METABOLIC PANEL; Future; Expected date: 01/06/2023 - TSH WITH FREE T4 IF INDICATED; Future; Expected date: 01/06/2023 - LIPID PANEL WITH DIRECT LDL IF TG IS HIGH; Future; Expected date: 01/06/2023 - HEMOGLOBIN A1C; Future; Expected date: 01/06/2023 - ALBUMIN / CREATININE RATIO, URINE; Future; Expected date: 01/06/2023 Chronic diastolic heart failure (HCC) Prediabetes - CBC WITH WBC DIFFERENTIAL; Future; Expected date: 01/06/2023 - COMPREHENSIVE METABOLIC PANEL; Future; Expected date: 01/06/2023 - TSH WITH FREE T4 IF INDICATED; Future; Expected date: 01/06/2023 - LIPID PANEL WITH DIRECT LDL IF TG IS HIGH; Future; Expected date: 01/06/2023 - HEMOGLOBIN A1C; Future; Expected date: 01/06/2023 - ALBUMIN / CREATININE RATIO, URINE; Future; Expected date: 01/06/2023 Decreased breath sounds in left mid-lung field - XR CHEST 2 VIEWS - BNP, NT-PRO; Future; Expected date: 01/06/2023 Discussed with patient: -HEALTH PROMOTION: Adequate sleep (8-10 hours/night), regular exercise, balanced diet, dental care,limiting sedentary activities (TV, computer, Internet) -MENTAL HEALTH: Discuss feelings with an someone that they can trust -INJURY PREVENTION: Driving Safety, Seat Belts, Sun Safety, No Weapons, Conflict Resolution, Personal Safety -SUBSTANCE ABUSE: Tobacco, Drugs, Alcohol Ingris Doe DO documented in this encounter Nursing Notes * Katiuska Tena LPN - 01/06/2023 12:15 PM EDT The patient has been properly identified by confirmation of name and date of . Chief Complaint Patient presents with NEW PATIENT Pt here to establish care with new PCP and medication management documented in this encounter Plan of Treatment Upcoming Encounters Date Type Specialty Care Team Description 01/06/2023 Laboratory Laboratory [facility] [address] [place] [phone] HTN, goal below 140/90; Persistent atrial fibrillation (HCC); Prediabetes; Decreased breath sounds in left mid-lung field 01/29/2023 PulmDiagnostic Sleep Disorders Rob Sleep [facility] Study [place] [address] [place] [address] 02/02/2023 Hospital Encounter Endoscopy Lonnie Hillman MD [address] [place] [address] 02/02/2023 Surgery Endoscopy Lonnie Hillman MD [address] [place] [address] COLONOSCOPY FLEXIBLE PROXIMAL DIAGNOSTIC 03/18/2023 Office Visit Dermatology Smith Pearson MD [address] [facility] [place] [address] 07/09/2023 Office Visit Family Medicine Ingris Doe, [address] [place] [address] Pending Results Name Type Priority Associated Diagnoses [...] fibrillation (HCC) Prediabetes 01/06/2023 12:56 PM EDT XR CHEST 2 VIEWS Medical Imaging Routine Decreased breath sounds in left mid-lung field 01/06/2023 12:45 PM EDT BNP, NT-PRO Lab Routine Decreased breath sounds in left mid-lung field 01/06/2023 12:56 PM EDT Scheduled Orders Name Type Priority Associated Diagnoses Orde r Schedule CBC WITH WBC DIFFERENTIAL Lab Routine HTN, goal below 140/90 Persistent atrial fibrillation (HCC) Prediabetes Expected: 01/06/2023, Expires: 02/07/2024 COMPREHENSIVE METABOLIC PANEL Lab Routine HTN, goal below 140/90 Persistent atrial fibrillation (HCC) Prediabetes Expected: 01/06/2023, Expires: 02/07/2024 TSH WITH FREE T4 IF INDICATED Lab Routine HTN, goal below 140/90 Persistent atrial fibrillation (HCC) Prediabetes Expected: 01/06/2023, Expires: 02/07/2024 LIPID PANEL WITH DIRECT LDL IF TG IS HIGH Lab Routine HTN, goal below 140/90 Persistent atrial fibrillation (HCC) Prediabetes Expected: 01/06/2023, Expires: 02/07/2024 HEMOGLOBIN A1C Lab Routine HTN, goal below 140/90 Persistent atrial fibrillation (HCC) Prediabetes Expected: 01/06/2023, Expires: 02/07/2024 ALBUMIN / CREATININE RATIO, URINE Lab Routine HTN, goal below 140/90 Persistent atrial fibrillation (HCC) Prediabetes Expected: 01/06/2023 (Approximate), Expires: 01/06/2024 BNP, NT-PRO Lab Routine Decreased breath sounds in left mid-lung field Expected: 01/06/2023 (Approximate), Expires: 01/06/2024 Scheduled Procedures Name Priority Associated Diagnoses Date/Ti [...] encounter Medical Devices Implanted Type Area Assembler For Puller Over Hand Device Identifier Shelf Expiration Date Model / Serial / Lot Lens 15.0 Sa60at - [id number] Implanted:Qty: 1 on 12/07/2007 at [facility] Right: Eye CLAUDE : SURGICAL 02/20/2012 SA60AT / [id number] / Lens 15.0 Sa60at - [id number] Implanted:Qty: 1 on 01/12/2008 at OR [facility] Left: Eye CLAUDE : SURGICAL 07/20/2012 SA60AT / [id number] / Stent Viab [id number] - [id number] Implanted:Qty: 1 on 06/09/2017 by Naresh Perry MD [place] [facility] [place]: [employer] 10/12/2019 [id number] / / documented as of this encounter Visit Diagnoses Diagnosis Well adult exam- Primary Routine general medical examination at a health care facility HTN, goal below 140/90 Unspecified essential hypertension Persistent atrial fibrillation (HCC) Atrial fibrillation Chronic diastolic heart failure (HCC) Chronic diastolic heart failure Prediabetes Other abnormal glucose Decreased breath sounds in left mid-lung field HTN, goal below 140/90 Unspecified essential hypertension [...] the patient have Health Care Power of Convertible Power Shovel Operator? No Full Code 01/12/2008 11:07 AM 01/12/2008 3:54 PM Care Teams Vascular Technologist Sonographer Relationship Specialty Start Date End Date Michael Purcell DO [address] [place] [address] PCP - General Family Medicine 01/07/21 documented as of this encounter
--- OUTSIDE RECORDS SUMMARY | 2023-04-15 03:29 | External Medical Summary ---
Author Name Unknown Address Unknown Organization [id number]:LABORATORY [facility] [place] - [address] [place] [id number] Laboratory Report Ordering Provider Test Date Status RAVI FOSTER 01/06/2023 12:56:12 Final Exclude Heart Failure: <300 pg/mL
Diagnose Heart Failure:
Age <50 yr: >450 pg/mL
50-75 yr: >900 pg/mL
>75 yr: >1800 pg/mL
GFR is 30-59 mL/min: >1200 pg/mL or Age- adjusted values
GFR <30 mL/min: do not use, not reliable

Prognostic threshold: 1000 pg/mL Observation Date Value Abnormality Reference (Units ) Status BNP, Pro-hormone 01/06/2023 12:56:12 2814 Above high no rmal <300 (pg/mL) Final Performing Location LABORATORY [facility] [place] - [facility] [address] [place] [id number]
--- OUTSIDE RECORDS SUMMARY | 2023-04-15 03:29 | External Medical Summary ---
Author Name Unknown Address Unknown Organization K0G:LABORATORY [place] [address] - [address] [place] [id number] Laboratory Report Ordering Provider Test Date Status RAVI FOSTER 01/06/2023 12:56:12 Final Observation Date Value Abnormality Reference (Units ) Status WBC, Total 01/06/2023 12:56:12 7.60 4.00-10.8 0 (K/uL) Final RBC 01/06/2023 12:56:12 5.31 4.50-5.25 (M/uL) Final Hemoglobin 01/06/2023 12:56:12 16.1 14.0-16.8 (g/dL) Final HCT 01/06/2023 12:56:12 51.2 Above high normal 40 .0-48.4 (%) Final MCV 01/06/2023 12:56:12 96.4 82.0-99.5 (fL) Final MCH 01/06/2023 12:56:12 30.3 27.0-34.0 (pg) Final MCHC 01/06/2023 12:56:12 31.4 32.0-36.0 (g/dL) Final RDW 01/06/2023 12:56:12 14.8 11.5-15.5 (%) Final Platelets 01/06/2023 12:56:12 170 140-400 (K /uL) Final MPV 01/06/2023 12:56:12 10.0 6.6-11.1 ( fL) Final Performing Location LABORATORY [facility] [place] [address] - [address] [place] [id number]
--- OUTSIDE RECORDS SUMMARY | 2023-04-15 03:29 | External Medical Summary | Summary of Care ---
Author Name Unknown Organization [facility] Address [address] [place] [address] Phone [phone] Care Team Providers Care Staff Research Scientist Name Role Phone BinhMichael Primary Care Provider Reason for Visit * Reason Onset Date Comments NEW PATIENT New patient no s noring at night. Doesn't stop breathing at night. Neck 16" Medication Administration 12/16/2022 Flu an d/or Pneumo Inj Encounter Details Date Type Department Care Team Description 12/16/2022 Office Visit Sleep Disorders [facility] [address] [place] [phone] Jess Knox [address] [place] [phone] Sleep apnea, unspecified type*; Need for prophylactic vaccination and inoculation against influenza; Chronic diastolic heart failure (HCC); HTN, goal below 140/90; Persistent atrial fibrillation (HCC) Allergies Active Allergy Reactions Severity Noted Date Comments Manuel Inhibitors Cough 03/23/2014 Amlodipine Besylate Rash Low 11/15/2012 Caused edema and rash on ankles Nutmeg Oil (Myristica Oil) 5 Other Allergy (See Comments) Rash 018 Wool Adhesive Tape 06/18/2014 documented as of this encounter (statuses as of 12/16/2022) Medications Medication Sig Dispensed Refills Start Date [...] as of this encounter (statuses as of 12/16/2022) Active Problems Problem Noted Date Persistent atrial fibrillation 3 Chronic diastolic heart failure 10/20/19 23 Pulmonary HTN 10/19/2022 Bilateral leg edema 10/19/2022 Prediabetes 01/06/2022 Gilbert syndrome 01/06/2022 Melanoma in situ of trunk 01/05/2022 PVD (peripheral vascular disease) 2017 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 Paroxysmal atrial fibrillation 5 MANUEL inhibitor intolerance 03/23/2014 HTN, goal below 140/90 11/15/2012 documented as of this encounter (statuses as of 12/16/2022) Resolved Problems Problem Noted Date Resolved Date Deep venous thrombosis of femoral vein 8 06/10/2017 Effort syncope 03/06/2014 12/24/2016 Senile nuclear cataract 12/01/2007 04/24/19 15 documented as of this encounter (statuses as of 12/16/2022) Immunizations Name Administration Dates Next Due COVID-19 mRNA, LNP-s, No Pre serve, 2-Dose Series ([employer]) 01/08/2021,06/04/2020,05/14/2020 COVID-19, LNP-s, No Preserve , Josr-sucrose, Ages 12+ (Pfizer) 10/10/2021 Covid-19, Mrna, Lnp-s, Pf, B ivalent, 30 Mcg, IM, 12 yrs and above (Pfizer) 07/29/2022 Pneumococcal Conjugate Vacc, 13 Valent (Prevnar) 12/24/2016 Pneumococcal Polysaccharide PPV23 (Pneumovax) 07/14/2002 Season Influenza, Quad, PF, Adjuvanted, 65+ Yrs, IM (FLUAD) 01/01/2020 Seasonal Influenza, PF, 6 mo ns & Above, IM , (Flulaval) 12/27/2017 Seasonal Influenza, Quadriva lent Hd (Fluzone [...] Sign Reading Time Taken Comments Blood Pressure 128/84 12/16/2022 1:24 PM EDT Pulse 90 12/16/2022 1:24 PM EDT Temperature 37.1 C (98.7 F) 12/16/2022 1:24 PM ED T Respiratory Rate 16 12/16/2022 1:24 PM EDT Oxygen Saturation 97% 12/16/2022 1:24 PM EDT Inhaled Oxygen Concentration - - Weight 101.5 kg (223 lb 12.3 oz) 12/16/2022 1:24 PM EDT Height 175.3 cm (5' 9") 12/16/2022 1:24 PM EDT Body Mass Index 33.04 12/16/2022 1:24 PM EDT documented in this encounter Functional [...] this encounter Patient Instructions * Patient Instructions* Jess Knox, DO - 12/16/2022 2:04 PM EDT OBSTRUCTIVE SLEEP APNEA We are concerned that you may have obstructive sleep apnea. Obstructive sleep apnea is when someonehas difficulties with breathing only during sleep. This typically happens without the patient beingaware they are having breathing issues. Obstructive sleep apnea is very common. It can be seen in kids and adults. It can cause symptoms of excessive daytime sleepiness, fatigue, morning headaches, and poor memory and cognition. It can also lead to difficulties at work or school and motor vehicle accidents. If left untreated, it puts people at risk for heart attacks, strokes, and diabetes. We diagnose obstructive sleep apnea with either an in-lab sleep study or a home sleep apnea test. More information can be obtained at: [email or web address] documented in this encounter Progress Notes * Jess Knox DO - 12/16/2022 1:36 PM EDT Sleep Medicine Evaluation [address] [address] Consultation was requested by: Dr. Henry for: chronic diastolic heart failure and a copy of this report is being sent to the provider electronically. Relevant available records reviewed. HPI: Jett Fraser is a(n) 87 year old male with Hx A-fib, HFpEF, HTN, pulmonary HTN, PVD, and prediabetes, presenting for evaluation of possible sleep apnea. Patient reports no trouble sleeping. His had a stroke; she has progressive aphasia (cannot talk, cannot walk); he is her full-time caregiver. Patient reports a typical bedtime of around midnight. Patient awakens every 2-3 hours overnight, to go to the bathroom and to care for his . It takes usually not long to return to sleep. Patient awakens for the day at varying times, today around 8:20 AM, feeling usually pretty well rested. Patient does sometimes feel sleepy or tired during the day. Patient does sometimes take naps. About half of days. Patient does not use caffeine. The patient reports having ("+" indicates reports, "-" indicates denies): Unsure if Snoring; no snoring awakenings + remote hx Observed apneas: had been mentioned by his 25-30 years ago. He had a PSG about 15 years ago; unsure of results. (Report is not on file in our system.) Was never on tx for sleep apnea. - Choking/gasping awakenings - Mouth breathing, unless he's congested. - Acid reflux at night + Nocturia - Morning headaches Restless Legs Syndrome Symptoms ("+" indicates reports, "-" indicates denies): - Urge to move legs at night Parasomnias Symptoms ("+" indicates reports, "-" indicates denies): - Sleepwalking - Dream-enactment Excessive Daytime Sleepiness: [place] Sleepiness Scale 7 - Drowsy driving sometimes Sleepy with sedentary activity EPWORTH SLEEPINESS SCALE: 0 = would never doze 1 = slight chance of dozing 2 = moderate chance of dozing 3 = high chance of dozing Sitting and reading - 2 Watching TV - 0 (does not watch TV) Sitting, inactive in a public place - 1 Passenger in a car - 0 (does not do) Lying down to rest - 2 Sitting and talking - 0 (does not do) Sitting quietly after lunch - 2 In a car, stopped in traffic - 0 Total - 10/12 Patient-Entered [facility] 2019 Msp: Part I And Employment Question 12/15/2022 8:28 PM EDT - Filed by Patient Are you currently employed? No, Retired Date of shelter: 12/20/1974 Do you have a spouse who is currently employed? No, but Not Retired Medicare requires that we periodically ask the following questions. Are you receiving benefits under the Black Lung Benefits Act (BL)? No Was the illness/injury due to a work-related accident/condition? No Are you receiving treatment for an injury or illness covered under no-fault (and/or medical-paymentcoverage) including premises or automobile? No Are you receiving treatment for an injury, or illness, for which another libertarian may be liable? No Are you entitled to Medicare based on: Age? Yes End-stage renal disease (ESRD)? No Patient-Entered Msp: Gjc-Vvnvfwhtiv-Mryn Primary Branch Calculation (range: 0 - 5) 1 Do you have group health plan (GHP) coverage based on your own current employment or the employmentof your spouse? No [place] Sleepiness Scale Question 12/16/2022 2:12 PM EDT - Filed by Jayla Hussein LPN What is the chance you will doze off in the following situation? Sitting and reading Slight chance of dozing Watching TV No chance of dozing Sitting inactive in a public place, such as a theater or meeting Slight chance of dozing As a passenger in a car for an hour without a break Slight chance of dozing Lying down to rest in the afternoon when circumstances permit Slight chance of dozing When sitting and talking to someone No chance of dozing When sitting quietly after lunch without alcohol High chance of dozing In a car, while stopped for a few minutes in traffic No chance of dozing Score (range: 0 - 24) 7 Functional Outcomes Of Sleep Question 12/16/2022 2:14 PM EDT - Filed by Jayla Hussein LPN Please complete the following questions. Do you have difficulty concentrating because you are sleepy or tired? Yes, moderate Do you have difficulty remembering things because you are sleepy or tired? Yes, moderate Do you have difficulty operating a motor vehicle for short distances (less than 100 miles) because you become sleepy? No Do you have difficulty operating a motor vehicle for long distances (more than 100 miles) because you become sleepy? No Do you have difficulty visiting family or friends in their home because you become sleepy or tired?No Has your relationship with family, friends, or work colleagues been affected because you are sleepyor tired? No Do you have difficulty watching a movie or video because you become sleepy or tired? Yes, a little Do you have difficulty being as active as you want to be in the evening because you are tired or sleepy? No Do you have difficulty being as active as you want to be in the morning because you are tired or sleepy? No Has your mood been affected because you are sleepy or tired? No Score (range: 10 - 40) 35 Prior sleep study: once, about 15 years ago, unsure of results. PMH: Past Medical History: Diagnosis Date HTN (hypertension) A-fib, HFpEF, HTN, pulmonary HTN, PVD, and prediabetes Past Surgical History: Procedure Laterality Date FEM/POP ARTERY REVASC W/ STENT+ANGIOPLASTY Left 06/09/2017 FEM/POP ARTERY REVASC W/ STENT+ANGIOPLASTY [place] [facility] [place] INTERNAL W/ BANDING 1976 Hemorrhoid(s) Ligation REMOVAL OF APPENDIX 1950 Appendectomy REMOVE CATARACT, INSERT LENS PROSTH 12/07/07 EXTRACAPSULAR CATARACT REMOVAL WITH INTRAOCULAR LENS performed by GERONIMO GUALLPA at [facility] REMOVE CATARACT, INSERT LENS PROSTH 01/12/08 EXTRACAPSULAR CATARACT REMOVAL WITH INTRAOCULAR LENS performed by GERONIMO GUALLPA at [facility] REMOVE TONSILS & ADENOIDS, UNDER 12 1944 T & A, age<12 ALLERGIES: Review of patient's allergies indicates: Allergen Reactions Manuel Inhibitors Cough Nutmeg Oil (Myristica Oil) Other Allergy (See Comments) Rash Wool Tape [Adhesive Tape] Norvasc [Amlodipine Besylate] Rash Caused edema and rash on ankles MEDS: Outpatient Medications Marked as Taking for the 12/16/22 encounter (Office Visit) with Jess Knox, DO Medication Sig Empagliflozin 10 MG Oral Tablet (Jardiance) Take 1 Tablet by mouth in the morning. Furosemide 20 MG Oral Tablet (Lasix) Take 2 Tablets by mouth in the morning. Atorvastatin Calcium 20 MG Oral Tablet (Lipitor) Take by mouth 1 Tablet in the morning. Metoprolol Succinate ER 25 MG Oral Tablet Extended Release 24 Hour (Toprol XL) Take by mouth 1 Tablet in the morning. Tamsulosin HCl 0.4 MG Oral Capsule (Flomax) Take by mouth 1 Capsule in the morning. Aspirin 81 MG Tablet Take 1 Tab by mouth daily. 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 GEN: Ambulatory, obese, NAD ORAL: Tongue not enlarged Hard palate normal Oral mucous membranes moist OP: Soft palate normal Mallampati 1 Tonsils 0 NECK: Circumference 16" RESP: Unlabored respirations Breath sounds clear, no wheezes or rales CVS: Irregularly irregular No murmurs EXT: + BLE edema NEURO: Speech clear Hard of hearing IMPRESSION/RECOMMENDATIONS: Hx witnessed apneas Cardiac comorbidities including A-fib, HFpEF, HTN, pulmonary HTN - suspect SORAYA, vs CSA in the setting of CHF - STOP-BANG 4 (observed apneas, HTN, age > 50, and male) - Discussed the pathophysiology, implications on short- and long-term health, diagnostic evaluationof sleep apnea - Patient is unable to do an overnight PSG due to being the main caregiver for his . 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 - Schedule a home sleep apnea test to evaluate for sleep apnea. Discussed that if the HSAT does notshow SORAYA, we will likely recommend in-lab PSG. - Avoid driving when sleepy/drowsy. Follow-up: Return will send myG with HST results. | Check-out note: HST (Diandra Knox DO * Jayla Hussein LPN - 12/16/2022 1:29 PM EDT Immunization Administration Documentation Time Out Procedure Performed: Yes Patient Identified (Ask Name/Date of ): Yes Does the patient have a fever greater than 101 degrees today? No Patient allergic to latex? No VFC Stock: No Immunization(s) verified: Yes, Immunization Name: Flu, VIS Sheet(s) given: No Verified Side and Site: Yes Verified Shot(s) with Parent(s)/Patient: Yes PRE - ADMINISTRATION DOCUMENTATION Are you experiencing any cold symptoms or fever? No Have you had Guillain-Tell Syndrome (an illness that causes paralysis) within the last 6 weeks? No Have you had the flu shot in the past? YES Have you ever had a reaction to the flu shot? No Jayla Hussein LPN, 12/16/2022 1:29 PM * Kia Frances LPN - 12/16/2022 1:19 PM EDT PRE - ADMINISTRATION DOCUMENTATION Are you experiencing any cold symptoms or fever? No Have you had Guillain-Tell Syndrome (an illness that causes paralysis) within the last 6 weeks? No Have you had the flu shot in the past? YES Have you ever had a reaction to the flu shot? NO Kia Frances LPN, 12/16/2022 1:19 PM Immunization Administration Documentation Time Out Procedure Performed: Yes Patient Identified (Ask Name/Date of ): Yes Does the patient have a fever greater than 101 degrees today? No Patient allergic to latex? No VFC Stock: No Immunization(s) verified: Yes, Immunization Name: Flu, VIS Sheet(s) given: Yes Verified Side and Site: Yes Verified Shot(s) with Parent(s)/Patient: Yes documented in this encounter Nursing Notes * Jayla Hussein LPN - 12/16/2022 2:14 PM EDT Patient-Entered [facility] 2019 Msp: Part I And Employment Question 12/15/2022 8:28 PM EDT - Filed by Patient Are you currently employed? No, Retired Date of shelter: [birth year]/20/1974 Do you have a spouse who is currently employed? No, but Not Retired Medicare requires that we periodically ask the following questions. Are you receiving benefits under the Black Lung Benefits Act (BL)? No Was the illness/injury due to a work-related accident/condition? No Are you receiving treatment for an injury or illness covered under no-fault (and/or medical-paymentcoverage) including premises or automobile? No Are you receiving treatment for an injury, or illness, for which another libertarian may be liable? No Are you entitled to Medicare based on: Age? Yes End-stage renal disease (ESRD)? No Patient-Entered Msp: Wpt-Tktnugpmsa-Fvnl Primary Branch Calculation (range: 0 - 5) 1 Do you have group health plan (GHP) coverage based on your own current employment or the employmentof your spouse? No [place] Sleepiness Scale Question 12/16/2022 2:12 PM EDT - Filed by Jayla Hussein LPN What is the chance you will doze off in the following situation? Sitting and reading Slight chance of dozing Watching TV No chance of dozing Sitting inactive in a public place, such as a theater or meeting Slight chance of dozing As a passenger in a car for an hour without a break Slight chance of dozing Lying down to rest in the afternoon when circumstances permit Slight chance of dozing When sitting and talking to someone No chance of dozing When sitting quietly after lunch without alcohol High chance of dozing In a car, while stopped for a few minutes in traffic No chance of dozing Score (range: 0 - 24) 7 Functional Outcomes Of Sleep Question 12/16/2022 2:14 PM EDT - Filed by Jayla Hussein LPN Please complete the following questions. Do you have difficulty concentrating because you are sleepy or tired? Yes, moderate Do you have difficulty remembering things because you are sleepy or tired? Yes, moderate Do you have difficulty operating a motor vehicle for short distances (less than 100 miles) because you become sleepy? No Do you have difficulty operating a motor vehicle for long distances (more than 100 miles) because you become sleepy? No Do you have difficulty visiting family or friends in their home because you become sleepy or tired?No Has your relationship with family, friends, or work colleagues been affected because you are sleepyor tired? No Do you have difficulty watching a movie or video because you become sleepy or tired? Yes, a little Do you have difficulty being as active as you want to be in the evening because you are tired or sleepy? No Do you have difficulty being as active as you want to be in the morning because you are tired or sleepy? No Has your mood been affected because you are sleepy or tired? No Score (range: 10 - 40) 35 * Kia Frances LPN - 12/16/2022 1:27 PM EDT Chief Complaint Patient presents with NEW PATIENT New patient no snoring at night. Doesn't stop breathing at night. Neck 16" Patient-Entered [facility] 2019 Msp: Part I And Employment Question 12/15/2022 8:28 PM EDT - Filed by Patient Are you currently employed? No, Retired Date of shelter: [birth year]20/1973 Do you have a spouse who is currently employed? No, but Not Retired Medicare requires that we periodically ask the following questions. Are you receiving benefits under the Black Lung Benefits Act (BL)? No Was the illness/injury due to a work-related accident/condition? No Are you receiving treatment for an injury or illness covered under no-fault (and/or medical-paymentcoverage) including premises or automobile? No Are you receiving treatment for an injury, or illness, for which another libertarian may be liable? No Are you entitled to Medicare based on: Age? Yes End-stage renal disease (ESRD)? No Patient-Entered Msp: Rad-Afnvbdampd-Lmtk Primary Branch Calculation (range: 0 - 5) 1 Do you have group health plan (GHP) coverage based on your own current employment or the employmentof your spouse? No documented in this encounter Plan of Treatment Upcoming Encounters Date Type Specialty Care Team Description 01/06/2023 Office Visit Family Medicine Ingris Rodriguez DO [address] [place] [id number] 01/25/2023 Office Visit Dermatology Cassandra English MD 01/29/2023 PulmDiagnostic Sleep Disorders [facility] Sleep [facility] Home Study Derrick [address] [place] [id number] 02/02/2023 Hospital Encounter Endoscopy Lonnie Hillman MD [address] [place] [id number] 02/02/2023 Surgery Endoscopy Lonnie Hillman MD [address] [place] [address] COLONOSCOPY FLEXIBLE PROXIMAL DIAGNOSTIC Scheduled Orders Name Type Priority Associated Diagnoses Orde r Schedule SLEEP TEST W/ TYPE 3 PORTABLE MONITOR, 4 CHANNEL; AT HOME Procedures Routine Sleep apnea, unspecified type Chronic diastolic heart failure (HCC) HTN, goal below 140/90 Persistent atrial fibrillation (HCC) Ordered: 12/16/2022 Scheduled Procedures Name Priority Associated Diagnoses Date/Ti me COLONOSCOPY FLEXIBLE PROXIMA L DIAGNOSTIC Rectal bleeding Melena 02/02/2023 1:30 PM EST ESOPHAGOGASTRODUODENOSCOPY ( EGD), FLEXIBLE, TRANSORAL, DIAGNOSTIC Rectal bleeding Melena 02/02/2023 1:30 PM EST Health Maintenance Due Date Last Done Comments Depression Screening 01/05/2023 01/05/2022 HbA1c 07/11/2023 07/10/2022, 12/20, 01/02/2021 Albumin/Creatinine Ratio 01/05/2025 01/05/2022, 08/21 DTaP,Tdap,and Td Vaccines (3 - Td or Tdap) 12/31/2029 01/01/2020, 07/14/2009 Pneumococcal Vaccine: 65+ Years Completed 12/24/2016, 07/14/2002 COVID-19 Vaccine Completed 07/29/2022, , 01/08/2021, Additional history exists Zoster Vaccines Completed 10/19/2022, 06/21, 01/14/2012 Influenza [...] this encounter Medical Devices Implanted Type Area Public Address System Operator Device Identifier Shelf Expiration Date Model / Serial / Lot Lens 15.0 Sa60at - [id number] Implanted:Qty: 1 on 12/07/2007 at [facility] Right: Eye CLAUDE : SURGICAL 02/20/2012 SA60AT / [id number] / Lens 15.0 Sa60at - [id number] Implanted:Qty: 1 on 01/12/2008 at OR [facility] Left: Eye CLAUDE : SURGICAL 07/20/2012 SA60AT / [id number] / Stent Viab [id number] - [id number] Implanted:Qty: 1 on 06/09/2017 [place]resh [place] [facility] [place]: [facility] [employer] [employer] 10/12/2019 [id number] / / documented as of this encounter Visit Diagnoses Diagnosis Sleep apnea, unspecified type- Primary Need for prophylactic vaccination and inoculation against influenza Chronic diastolic heart failure (HCC) Chronic diastolic heart failure HTN, goal below 140/90 Unspecified essential hypertension Persistent atrial fibrillation (HCC) Atrial fibrillation Rectal bleeding Hemorrhage of rectum and anus [...] the patient have Health Care Power of Naphthalene Still Operator? No Full Code 01/12/2008 11:07 AM 01/12/2008 3:54 PM Care Teams Staff Research Scientist Relationship Specialty Start Date End Date Michael Henry DO [address] [place] [id number] PCP - General Family Medicine 01/07/21 documented as of this encounter
--- OUTSIDE RECORDS SUMMARY | 2023-04-15 03:29 | External Medical Summary | Summary of Care ---
Author Name Unknown Organization [facility] Address [address] [facility] [place] [address] Phone [phone] Care Team Providers Care Motor Coach Driver Name Role Phone BinhMichael garrido Primary Care Provider Reason for Visit * Reason Onset Date Comments Test Results 01/06/2023 Encounter Details Date Type Department Care Team Description 01/06/2023 Telephone Family Practice [facility] [address] [place] [address] Ingris Rodriguez DO [address] [place] [address] Test Results Allergies Active Allergy Reactions Severity Noted Date Comments Manuel Inhibitors Cough 03/23/2014 Amlodipine Besylate Rash Low 11/15/2012 Caused edema and rash on ankles Nutmeg Oil (Myristica Oil) 5 Other Allergy (See Comments) Rash 018 Wool Adhesive Tape 06/18/2014 documented as of this encounter (statuses as of 01/08/2023) Medications Medication Sig Dispensed Refills Start Date [...] (HCC),HTN, goal below 140/90,PVD (peripheral vascular disease) ([facility]) Take by mouth 1 Tablet in the morning. 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 45 Capsule 3 01/05/2022 Active Furosemide 20 MG Oral Tablet (Lasix)Indications:Pe rsistent atrial fibrillation (HCC),Generalized edema,Chronic diastolic congestive heart failure (HCC),Dyslipidemia, goal LDL below 100,PVD (peripheral vascular disease) ([facility]),HTN, goal below 140/90 Take 2 Tablets by mouth in the morning. 180 Tablet 3 09/24/2022 Active Empagliflozin 10 MG Oral Tablet (Jardiance) Take 1 Tablet by mouth in the morning. 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 Paroxysmal atrial fibrillation 5 MANUEL inhibitor intolerance 03/23/2014 HTN, goal below 140/90 11/15/2012 documented as of this encounter (statuses as of 01/08/2023) Resolved Problems Problem Noted Date Resolved Date Deep venous thrombosis of femoral vein 8 06/10/2017 Effort syncope 03/06/2014 12/24/2016 Senile nuclear cataract 12/01/2007 04/24/19 15 documented as of this encounter (statuses as of 01/08/2023) Immunizations Name Administration Dates Next Due COVID-19 mRNA, LNP-s, No Pre serve, 2-Dose Series ([employer]) 01/08/2021,06/04/2020,05/14/2020 COVID-19, LNP-s, No Preserve , Josr-sucrose, Ages 12+ ([employer]) 10/10/2021 Covid-19, Mrna, Lnp-s, Pf, B ivalent, [...] encounter Miscellaneous Notes * Telephone Encounter - Zenobia San LPN [...] Encounters Date Type Specialty Care Team Description 01/14/2023 Office Visit Cardiology Senait Rodriguez CRNP [address] [place] [address] 01/29/2023 PulmDiagnostic Sleep Disorders [facility], Sleep Med Home Study Derrick [address] [place] [address] 02/02/2023 Hospital Encounter Endoscopy Lonnie Hillman MD [address] [place] [address] 02/02/2023 Surgery Endoscopy Lonnie Hillman MD [address] [place] [address] COLONOSCOPY FLEXIBLE PROXIMAL DIAGNOSTIC 03/18/2023 Office Visit Dermatology Smith Pearson MD [address] [place] [address], [place] [address] 07/09/2023 Office Visit Family Medicine Ingris Rodriguez DO [address] [address] Scheduled Orders Name Type Priority Associated Diagnoses [...] this encounter Medical Devices Implanted Type Area Location Manager Device Identifier Shelf Expiration Date Model / Serial / Lot Lens 15.0 Sa60at - [id number] Implanted:Qty: 1 on 12/07/2007 at [facility] Right: Eye CLAUDE : SURGICAL 02/20/2012 SA60AT / [id number] / Lens 15.0 Sa60at - [id number] Implanted:Qty: 1 on 01/12/2008 at OR [facility] Left: Eye CLAUDE : SURGICAL 07/20/2012 SA60AT / [id number] / Stent Viab [id number] - [id number] Implanted:Qty: 1 on 06/09/2017 [place]resh [place] [facility] [place] [employer]ELI [employer] 10/12/2019 [id number] / / documented as of this encounter [...] the patient have Health Care Power of Laundrette Owner? No Full Code 01/12/2008 11:07 AM 01/12/2008 3:54 PM Care Teams Motor Coach Driver Relationship Specialty Start Date End Date Michael Purcell DO [address] [place] [address] PCP - General Family Medicine 01/07/21 documented as of this encounter
--- OUTSIDE RECORDS SUMMARY | 2023-04-15 03:29 | External Medical Summary ---
Author Name Unknown Address Unknown Organization [id number]:[facility] - [address] [place] [address] Laboratory Report Ordering Provider Test Date Status RAVI FOSTER 01/06/2023 12:56:12 Final Observation Date Value Abnormality Reference (Units ) Status Triglyceride 01/06/2023 12:56:12 74 <=174 ( mg/dL) Final Triglyceride Reference Range s (mg/dL):
<150 Acceptable
150-174 Borderline high
175-499 High
>=500 Very high Cholesterol 01/06/2023 12:56:12 109 <200 (mg /dL) Final Total Cholesterol Reference Ranges (mg/dL):
<200 Desirable
200-239 Borderline high
>=240 High HDL 01/06/2023 12:56:12 43 >39 (mg/dL ) Final HDL Cholesterol Reference Ra nges (mg/dL):
>=60 High (Desirable)
<50 Low (Undesirable) For Females
<40 Low (Undesirable) For Males NON-HDL CHOLESTEROL 01/06/2023 12:56:12 66 <=159 (mg/dL) Final Non-HDL Cholesterol Referenc e Range (mg/dL):
<100 Target level for high risk ASCVD patient
<130 Optimal for general population
130-159 Near optimal for general population
160-189 Borderline High
190-219 High
>=220 Very High LDL, (calculated) 01/06/2023 12:56:12 51 <= 129 (mg/dL) Final LDL Cholesterol Reference Ra nges (mg/dL):
<70 Target level for high risk ASCVD patient
<100 Optimal for general population
100-129 Near optimal for general population
130-159 Borderline high
160-189 High
>=190 Very high Performing Location [facility] - [address] [facility] [address]
--- OUTSIDE RECORDS SUMMARY | 2023-04-15 03:29 | External Medical Summary | Summary of Care ---
Author Name Unknown Organization [facility] Address [address] [facility] [place] [address] Phone [phone] Care Team Providers Care Mosquito Sprayer Name Role Phone Michael Purcell DO Primary Care Provider Reason for Visit * Reason Onset Date Comments Advice 07/20/2022 Encounter Details Date Type Department Care Team Description 07/20/2022 Telephone Family Practice [facility] [address] [place] [address] Michael Purcell DO [address] [place] [id number] Advice Allergies Active Allergy Reactions Severity Noted Date Comments Manuel Inhibitors Cough 03/23/2014 Amlodipine Besylate Rash Low 11/15/2012 Caused edema and rash on ankles Nutmeg Oil (Myristica Oil) 5 Other Allergy (See Comments) Rash 018 Wool Adhesive Tape 06/18/2014 documented as of this encounter (statuses as of 12/26/2022) Medications Medication Sig Dispensed Refills Start Date End Date Status Aspirin 81 MG TabletIndication s:Femoral artery aneurysm (HCC) Take 1 Tab by mouth daily. 30 Tab 11 8 Active Atorvastatin Calcium 20 MG Oral Tablet (Lipitor)Indicat ions:PVD (peripheral vascular disease) (HCC) Take by mouth 1 Tablet in the morning. 90 Tablet 3 2 Active Metoprolol Succinate ER 25 MG Oral Tablet Extended Release 24 Hour (Toprol XL)Indications:P aroxysmal atrial fibrillation (HCC),HTN, goal below 140/90,PVD (peripheral vascular disease) (HCC) Take by mouth 1 Tablet in the morning. 90 Tablet 3 2 Active Tamsulosin HCl 0.4 MG Oral Capsule (Flomax)Indicati ons:BPH with obstruction/lowe r urinary tract symptoms Take by mouth 1 Capsule in the morning. 45 Capsule 3 2 Active Multiple Vitamins-Mineral s (ONE-A-DAY MENS 50+ ADVANTAGE) TABS Take 1 Tab by mouth daily. 0 10/02/19 23 Discontinued(Pa tient preference/disc ontinuation) Furosemide 20 MG Oral Tablet (Lasix)Indicatio ns:HTN, goal below 140/90 Take by mouth 1 Tablet daily as needed (edema). for fluid accumulation or weight gain 90 Tablet 3 2 07/22/19 23 Discontinued Clopidogrel Bisulfate 75 MG Oral Tablet (Plavix)Indicati ons:Femoral artery aneurysm (HCC),Paroxysmal atrial fibrillation (HCC),Atheroscle rosis of abdominal aorta (HCC) Take by mouth 1 Tablet in the morning. 90 Tablet 3 2 07/23/19 23 Discontinued(Tx dication List Clean Up) Potassium Chloride ER 10 MEQ Oral Capsule Extended ReleaseIndicatio ns:Hypokalemia Take 1 Capsule by mouth in the morning and 1 Capsule before bedtime. 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 Paroxysmal atrial fibrillation 5 MANUEL inhibitor intolerance 03/23/2014 HTN, goal below 140/90 11/15/2012 documented as of this encounter (statuses as of 12/26/2022) Resolved Problems Problem Noted Date Resolved Date Deep venous thrombosis of femoral vein 8 06/10/2017 Effort syncope 03/06/2014 12/24/2016 Senile nuclear cataract 12/01/2007 04/24/19 15 documented as of this encounter (statuses as of 12/26/2022) Immunizations Name Administration Dates Next Due COVID-19 mRNA, LNP-s, No Pre serve, 2-Dose Series (Pfizer) 01/08/2021,06/04/2020,05/14/2020 COVID-19, LNP-s, No Preserve , Josr-sucrose, Ages 12+ (Pfizer) 10/10/2021 Pneumococcal Conjugate Vacc, 13 Valent (Prevnar) 12/24/2016 Pneumococcal Polysaccharide PPV23 (Pneumovax) 07/14/2002 SEASONAL INFLUENZA, PF, 6 M & Above, IM , (FLULAVAL or FLUZONE) 12/27/2017 Season Influenza, Quad, PF, Adjuvanted, 65+ Yrs, IM (FLUAD) 01/01/2020 Seasonal Influenza, Quadriva lent Hd (Fluzone Hd) 01/05/2022,01/02/2021 Seasonal Influenza, Quadriva lent, No Preserve, IM 12/23/2015 Seasonal Influenza, Split, I IV3, With Preserve, Inj 03/23/2014,03/02/2013 Seasonal Influenza, Trivalen t, Adjuvanted, 65+ yrs 12/30/2018 TDAP (age 10 and older)(Boostrix) 01/01/2020 TDAP (age 11 and older)(Adacel) 07/14/2009 Zoster Vaccine Recombinant (Shingrix) 07/10/2022 documented as of this encounter Social History Tobacco Use Types Packs/Day Years Used Date Smoking Tobacco: Former Cigarettes 7 Q uit: 1959 Pipe Cigars Smokeless Tobacco: Never Comments:Smoked 1 -2 packs/d ay when smoking Alcohol Use Standard Drinks/Week Comments No 0 (1 standard drink = 0.6 oz pur e alcohol) Food Insecurity Answer Date Recorded Within the [...] encounter Miscellaneous Notes * Telephone Encounter - Michael Purcell DO - 07/21/2022 12:22 PM EDT Spoke with patient. Patient feeling improved with no further episodes of rectal bleeding. Patient denies nausea vomiting or fever. Patient denies chest pain or shortness of breath. Patient advised continue to hold both potassium and Plavix pending re-evaluation in office. Patient advised to keep schedule appointment. Advise repeat BMP and CBC at office visit * Telephone Encounter - Marnie Bolanos LPN - 07/21/2022 10:19 AM EDT Please advise. Is appointment still neccessary?? * Telephone Encounter - Andra Flores LPN - 07/21/2022 9:42 AM EDT Please assist pt to schedule an urgent office visit for further evaluation of rectal bleeding * Telephone Encounter - SORAYA Tapia - 07/21/2022 9:37 AM EDT Appointment scheduled with patient. * Telephone Encounter - Andra Flores LPN - 07/21/2022 9:36 AM EDT Attempted to call pt at [phone] but only get a busy signal. * Telephone Encounter - Michael Purcell DO - 07/20/2022 6:30 PM EDT Advise hold Plavix pending further evaluation due to rectal bleeding. Patient may discontinue potassium supplementation. Advise schedule urgent office visit for further evaluation of patient complains of rectal bleeding.Advise ER if symptoms worsen or persist Please assist with scheduling documented in this encounter Plan of Treatment Upcoming Encounters Date Type Specialty Care Team Description 01/06/2023 Office Visit Family Medicine Ingris Rodriguez DO [address] [place] [address] 01/29/2023 PulmDiagnostic Sleep Disorders [facility], Sleep [facility] Study Derrick [address] [place] [address] 02/02/2023 Hospital Encounter Endoscopy Lonnie Hillman MD [address] [place] [address] 02/02/2023 Surgery Endoscopy Lonnie Hillman MD [address] [place] [address] COLONOSCOPY FLEXIBLE PROXIMAL DIAGNOSTIC 03/18/2023 Office Visit Dermatology Smith Pearson MD [address] [place], [place] [address] [address] Scheduled Procedures Name Priority Associated Diagnoses Date/Ti [...] this encounter Medical Devices Implanted Type Area Check Cashier Device Identifier Shelf Expiration Date Model / Serial / Lot Lens 15.0 Sa60at - [id number] Implanted:Qty: 1 on 12/07/2007 at OR [facility] Right: Eye CLAUDE : SURGICAL 02/20/2012 SA60AT / [id number] / Lens 15.0 Sa60at - [id number] Implanted:Qty: 1 on 01/12/2008 at OR [facility] Left: Eye CLAUDE : SURGICAL 07/20/2012 SA60AT / [id number] / Stent Viab [id number] - [id number] Implanted:Qty: 1 on 06/09/2017 by Naresh Perry MD at [place] [facility] [place] Left: YARELI MON[employer] [facility] 10/12/2019 [id number] / / documented as of this encounter [...] the patient have Health Care Power of Ticket Sorter? No Full Code 01/12/2008 11:07 AM 01/12/2008 3:54 PM Care Teams Mosquito Sprayer Relationship Specialty Start Date End Date Michael Purcell DO [address] [place] [address] PCP - General Family Medicine 01/07/21 documented as of this encounter
--- OUTSIDE RECORDS SUMMARY | 2023-04-15 03:29 | External Medical Summary ---
Author Name Unknown Address Unknown Organization K01:[facility] [place] - [address] [place] [address] Laboratory Report Ordering Provider Test Date Status RAVI FOSTER 01/06/2023 13:03:36 Final Normal: <30 mg/g creatinine< br/>High: 30-300 mg/g creatinine
Very High: >300 mg/g creatinine
Nephrotic: >2200 mg/g creatinine Observation Date Value Abnormality Reference (Units ) Status Albumin, Urine 01/06/2023 13:03:36 5.14 (mg/dL) Final Creatinine, Urine 01/06/2023 13:03:36 60 (mg/dL) Final Albumin/Creatinine [Mass Ratio] in Urine 01/06/2023 13:03:36 86 Above high normal <30 (mg/g Creat) Final Performing Location [facility] [place] - [facility] [address] [place] [place] [address]
--- OUTSIDE RECORDS SUMMARY | 2023-04-15 03:29 | External Medical Summary ---
Author Name Unknown Address Unknown Organization K[facility] [address] [place] [address] Laboratory Report Ordering Provider Test Date Status RAVI FOSTER 01/06/2023 12:56:12 Final Observation Date Value Abnormality Reference (Units ) Status SYNC LEUKOCYTES IN BLOOD BY AUTOMATED COUNT 01/06/2023 12:56:12 7.60 4.00-10.80 (K/uL) Final Segs 01/06/2023 12:56:12 70.0 40.0-75.0 (%) Final Lymphs % 01/06/2023 12:56:12 14.1 Below low normal 18.0-42.0 (%) Final Monos 01/06/2023 12:56:12 13.8 Above high normal 1.0-11.0 (%) Final Eosinophils 01/06/2023 12:56:12 1.8 0.0-6.0 (%) Final Basos 01/06/2023 12:56:12 0.3 0.0-2.0 (%) Final Absolute Segs 01/06/2023 12:56:12 5.32 1.80-7.70 (K/uL) Final Lymphs, absolute 01/06/2023 12:56:12 1.07 1.00-4.80 (K/ul) Final Monos, Abs 01/06/2023 12:56:12 1.05 0.00-1.10 (K/uL) Final Eos, Abs 01/06/2023 12:56:12 0.14 0.00-0.70 (K/uL) Final Basos, Abs 01/06/2023 12:56:12 0.02 0.00-0.20 (K/uL) Final Performing Location [facility] - [address] [place] [address]
[2023-04-15] MEDS ORDERED: ACETAMINOPHEN 325 MG TAB PO PRN (04:31)
[2023-04-15 05:11] LABS: Basophils # (auto) 0.02 K/uL (0.00-0.20); Basophils % (auto) 0.3 %; Eosinophils # (auto) 0.02 K/uL (0.00-0.50); Eosinophils % (auto) 0.3 %; Hematocrit (blood only) 53.8 % (42.0-52.0); Hemoglobin 16.1 g/dl (14.0-18.0); Immature Granulocytes # (auto) 0.04 K/uL (0.01-0.20); Immature Granulocytes % (auto) 0.5 %; Lymphocytes # (auto) 0.57 K/uL (1.20-3.40); Lymphocytes % (auto) 7.2 %; Mean Corpuscular Hemoglobin 27.6 pg (25.0-34.0); Mean Corpuscular Hgb Conc 29.9 g/dL (32.0-36.0); Mean Corpuscular Volume 92.1 fL (80.0-100.0); Mean Platelet Volume 10.2 fL (9.4-12.4); Monocytes % (auto) 8.9 %; Neutrophils # (auto) 6.54 K/uL (1.40-6.50); Neutrophils % (auto) 82.8 %; Platelet Count 134 K/uL (130-400); RDW Coefficient of Variation 15.7 % (11.5-14.5); RDW Standard Deviation 52.1 fL (36.4-46.3); Red Blood Count 5.84 M/uL (4.70-6.10); White Blood Count 7.89 K/ul (4.8-10.8)
[2023-04-15 05:25] LABS: BUN Creatinine Ratio 39.4 (10-20); Calcium 9.3 mg/dl (8.6-10.3); Creatinine Clr Calc Pharmacy 90.6 ml/min; Est GFR (Non-African American) 86.3 ml/min; Potassium 4.2 mmol/L (3.5-5.1)
[2023-04-15 09:27] LABS: Appearance Urine Cloudy (Clear); Bacteria Urine Automated Negative (Negative); Bilirubin Urine Negative (Negative); Blood Urine 3+ (Negative); Color Urine Red; Epithelial Cell Urine Auto 0-5 /lpf (0-5); Glucose Urine UA 3+ (Negative); Ketones Urine Negative (Negative); Leukocyte Esterase Urine Negative (Negative); Nitrite Urine Negative (Negative); Protein Urine Trace (Negative); RBC Urine Automated >30 /hpf (0-4); Specific Gravity Urine 1.022 (1.000-1.030); Urobilinogen Urine Negative (Negative)
--- NOTE | 2023-04-15 09:41 | Ultrasound Report ---
BILATERAL LOWER EXTREMITY VENOUS DOPPLER HISTORY: Acute pain and swelling of the lower legs leg swelling COMPARISON STUDY: None. FINDINGS: There is normal compressibility, flow, and augmentation within the bilateral lower extremit y deep venous systems. Nonspecific subcutaneous edema. IMPRESSION: No DVT within the right or left lower extremity. ACT 112: Negative or not required by law. Electronically signed by: Ash Alcantar M.D. 04/15/2023 9:38 AM
[2023-04-15] MEDS: ASPIRIN 81 MG ECTAB PO SCH (09:50)
[2023-04-15] MEDS: ENOXAPARIN INJ 40 MG/0.4 ML SYR SQ SCH (09:50)
[2023-04-15] MEDS: ATORVASTATIN 20 MG TAB PO SCH (09:50)
[2023-04-15] MEDS: TAMSULOSIN HCL 0.4 MG CAP PO SCH (09:50)
[2023-04-15] MEDS: METOPROLOL SUCC 25MG EXT REL TAB PO SCH (09:50)
[2023-04-15] MEDS: FUROSEMIDE 40 MG/4 ML VIAL IV SCH (09:50)
--- NOTE | 2023-04-15 12:25 | Cardiology Consultation ---
Date of Consultation April 15, 2023 Assessment & Plan (1) Acute hypoxemic respiratory failure: (2) Acute on chronic diastolic HF (heart failure): (3) Bilateral cellulitis of lower leg: (4) Permanent atrial fibrillation: Plan IMPRESSION: 87 year old male presented to [facility] emergency department with acute hypoxic respiratory failure secondary to acute on chronic diastolic CHF Patient markedly volume overloaded--at minimum up 20 pounds from baseline. PLAN: Acute on chronic HFpEF: -Agree with IV diuresis, Lasix 40 mg twice daily -Monitor renal function and electrolytes, potassium goal of 4.0 and mag goal of 2.0, replace as necessary -Future considerations of adding spironolactone -Jardiance currently on hold to allow for aggressive diuresis. -Low normal LVEF with borderline diffuse LV hypokinesis on last echo dated 09/2022. Will repeat echocardiogram this admission to reassess LV systolic function and valvular status. -Strict I's and O's, 2 g sodium restriction, 1500 cc fluid restriction, CHF education, daily standing weights. Acute hypoxic respiratory failure: -Supportive measures per primary service. Diuresis will help oxygenation levels. Wean O2 as able. -CPAP during sleep time hours encouraged Bilateral lower extremity cellulitis: -Diuresis will help improve edema, antibiotics per primary service. -Blood cultures and wound cultures pending. Permanent atrial fibrillation: -Known permanent atrial fibrillation with elevated [id number] however high bleeding risk with history of lower GI bleed. Not currently on anticoagulation. Only aspirin. Case discussed with Dr. Jackson. Will follow. I spent a total of 40 minutes on the date of service in preparation, delivery, and documentation of the care provided to the patient excluding any time spent in the performance of separately billed services. KM Mello Department of Cardiology, [facility] This chart was completed in part utilizing Speech Voice Recognition Software. Grammatical errors, random word insertions, pronoun errors, and incomplete sentences are an occasional consequence of this system due to software limitations, ambient noise, and hardware issues. Any formal questions or concerns about the content, text, or information contained within the body of this dictation should be directly addressed to the provider for clarification. Supervising Physician Co-Signing Physician Notes Patient seen and examined, chart, medications, telemetry reviewed. Full assessment and plan as well outlined above 87-year-old male who presents noting 6 to 8-week gradual decline including decreased mobility with fall increasing lower extremity edema abdominal girth and weight gain consistent with acute on chronic diastolic heart failure/right heart failure. Exam notable for evidence of right heart failure with bilateral marked lower extremity edema increased abdominal girth and anasarca IV diuretics initiated we will give an additional dose this evening. Expect will require higher doses for more aggressive diuresis. Echocardiogram pending History of Present Illness Reason for Consultation: Hypoxic respiratory failure Requesting Physician: Damian dumont Attending Physician: Eliseo Pedraza MD History of Present Illness 87-year-old male who presented to [facility] emergency department due to worsening lower extremity edema extending up to his scrotal area and abdomen + dyspnea on exertion and coughing. Patient is somewhat of a poor historian but notes that over the last 3 days he gained significant weight. Believes that he is up anywhere from 15 to 20 pounds. Legs have become red and painful and recently started weeping. He is also noting a ulceration on his right heel that has not been healing. Blood and wound cultures pending. Denies any medication noncompliance or dietary indiscretions. On presentation patient was hypoxic with oxygen saturations in the 80s. Placed on supplemental oxygen with improvement in saturation. EKG showing atrial fibrillation, 96 bpm without any acute ST segment changes. Lab work included: Stable renal function and electrolytes. BNP mildly elevated at 250, CBC without significant anemia. Respiratory bio fire negative. CT of the chest was negative for pulmonary embolism but did show bilateral pleural effusions. CT of the abdomen/pelvis showed severe scrotal edema Given 40 mg of IV Lasix. Rodney catheter was placed and patient was started on IV Lasix and IV antibiotics. Last outpatient echo dated 09/2022 showed a low normal LVEF of approximately 50 to 54% with borderline diffuse LV hypokinesis. He had mixed mild valvular insufficiency. Outpatient cardiac medications: Furosemide 40 mg daily, metoprolol succinate 25 mg daily, Jardiance 25 mg daily, atorvastatin 20 mg daily, aspirin 81 mg daily Primary Featherer: Dr. Jackson Past medical history: 1. Permanent atrial fibrillation, [id number] score of 4 (age 1, CHF, PVD)--not on AC due to prior rectal bleeding 2. Hypertension 3. 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 Diastolic CHF 5. Hyperlipidemia 6. SORAYA on CPAP 7. Pulm HTN 8. Gilbert syndrome 9. Chronic bilateral lower extremity edema/lymphedema and stasis dermatitis Allergies Allergy/AdvReac Type Severity Reaction Status Date / Time adhesive tape Allergy Unknown skin Verified 04/15/23 02:10 irritation nutmeg oil (Myristica seed Allergy Unknown Unknown Verified 04/15/23 02:10 oil) lisinopril AdvReac Unknown cough Verified 12/24/14 06:28 UNKNOWN BP MEDICATION Allergy Unknown rash at Uncoded 03/18/14 11:52 ankles Home Medications Medication Instructions Recorded Confirmed Type aspirin 81 mg tablet,delayed 81 mg PO DAILY 04/15/23 04/15/23 History release atorvastatin 20 mg tablet 20 mg PO QAM 04/15/23 04/15/23 History empagliflozin 25 mg tablet 25 mg PO QAM 04/15/23 04/15/23 History (Jardiance) furosemide 20 mg tablet 40 mg PO QAM 04/15/23 04/15/23 History metoprolol succinate 25 mg 25 mg PO QAM 04/15/23 04/15/23 History tablet,extended release 24 hr silver sulfadiazine 1 % topical 1 applic topical DAILY 04/15/23 04/15/23 History cream (SSD) tamsulosin 0.4 mg capsule 0.4 mg PO QAM 04/15/23 04/15/23 History Patient History Medical History Lymphedema Atrial fibrillation CHF (congestive heart failure) Hypertension Social History Smoking Status: Former smoker Second Hand Exposure: No; Do You Dip or Chew Tobacco: No; Tobacco Cessation Education Requested by Patient: No Hx Alcohol Use: No Hx Substance Use: No Preferred Language: Mongolian Communication Ability: Effective Eligibility Supervisor Required: Yes Beliefs That Will Affect Care: None Current Living Situation: Alone Feels Safe at Home: Yes Safety Concerns: Feels Safe At This Time Assistive Devices: Hearing Aid - Bilateral and Walker Review of Systems Review of Systems: All systems reviewed & are unremarkable except as noted in HPI & below Physical Exam Constitutional: + ill appearing; no acute distress Neck: normal visual inspection and trachea midline Respiratory: normal respiratory effort and + cough Auscultation: + rales; no rhonchi and no wheezes Cardiovascular: Rate/Rhythm: regular rate and + irregularly irregular Heart Sounds: normal S1, normal S2 and + murmur (+2/6 systolic murmur) Vessels: + JVD Extremities: + pedal edema (right heel ulceration) and + edema (+4 BLLE pitting edema to abdomen/scrotum) Gastrointestinal (Abdomen): Inspection/Auscultation: + abdomen distended and + abdominal edema Percussion/Palpation: abdomen soft Skin: + wound (right heel ulceration) BLLE erythemia Psychiatric: Orientation: alert and oriented x 3 (garbled speech) Genitourinary: + scrotum abnormality (swollen ) Results & Data Vital Signs (Past 12 Hours) Vital Signs Pulse Resp BP Pulse Ox Pulse Ox O2 Del Method O2 Del Method 04/15/23 10:10 108 H 21 95 04/15/23 08:03 95 Nasal Cannula 04/15/23 07:33 108 H 04/15/23 07:32 Nasal Cannula 04/15/23 07:22 105 H 121/94 94 Nasal Cannula 04/15/23 04:31 95 Nasal Cannula 04/15/23 03:30 92 H 25 H 93 04/15/23 03:30 121/75 04/15/23 03:20 96 H 24 94 04/15/23 03:10 24 94 04/15/23 03:01 119/101 H 04/15/23 03:01 106 H 20 04/15/23 03:00 107 H 21 04/15/23 02:50 95 H 22 04/15/23 02:40 88 18 95 04/15/23 02:30 116/88 04/15/23 02:30 96 H 23 04/15/23 02:20 107 H 24 04/15/23 02:10 21 04/15/23 02:00 120 H 22 94 04/15/23 01:58 99 H 21 93 04/15/23 01:44 100 H 04/15/23 01:40 21 94 04/15/23 01:40 136/88 04/15/23 01:30 107 H 20 04/15/23 01:20 99 H 21 04/15/23 01:10 98 H 20 04/15/23 01:01 90 28 H 04/15/23 01:00 85 33 H 04/15/23 00:50 90 34 H 95 04/15/23 00:40 103 H 29 H 98 04/15/23 00:30 109 H 34 H 98 04/15/23 00:20 147/107 H 04/15/23 00:20 88 21 94 04/15/23 00:18 93 O2 Flow Rate O2 Flow Rate 04/15/23 10:10 04/15/23 08:03 2 04/15/23 07:33 04/15/23 07:32 2 04/15/23 07:22 2 04/15/23 04:31 2 04/15/23 03:30 04/15/23 03:30 04/15/23 03:20 04/15/23 03:10 04/15/23 03:01 04/15/23 03:01 04/15/23 03:00 04/15/23 02:50 04/15/23 02:40 04/15/23 02:30 04/15/23 02:30 04/15/23 02:20 04/15/23 02:10 04/15/23 02:00 04/15/23 01:58 04/15/23 01:44 04/15/23 01:40 04/15/23 01:40 04/15/23 01:30 04/15/23 01:20 04/15/23 01:10 04/15/23 01:01 04/15/23 01:00 04/15/23 00:50 04/15/23 00:40 04/15/23 00:30 04/15/23 00:20 04/15/23 00:20 04/15/23 00:18 Laboratory Results Cardiac Enzymes 04/14/23 Range/Units 21:15 AST 19 (13-39) U/L Troponin I High Sens 12.4 (0-20) pg/ml B-Natriuretic Peptide 250 H (0-100) pg/ml Coagulation 04/14/23 Range/Units 21:15 B-Natriuretic Peptide 250 H (0-100) pg/ml CBC 04/14/23 04/15/23 Range/Units 21:15 04:47 WBC 7.12 7.89 (4.8-10.8) K/ul RBC 5.78 5.84 (4.70-6.10) M/uL Hgb 16.6 16.1 (14.0-18.0) g/dl Hct 51.5 53.8 H (42.0-52.0) % Plt Count 150 134 (130-400) K/uL Neut # (Auto) 5.50 6.54 H (1.40-6.50) K/uL Lymph # (Auto) 0.81 L 0.57 L (1.20-3.40) K/uL Bailey # (Auto) 0.67 H 0.70 H (0.11-0.59) K/uL Eos # (Auto) 0.08 0.02 (0.00-0.50) K/uL Baso # (Auto) 0.04 0.02 (0.00-0.20) K/uL Comprehensive Metabolic Panel 04/14/23 04/15/23 Range/Units 21:15 04:47 Sodium 139 138 (136-145) mmol/L Potassium 4.4 4.2 (3.5-5.1) mmol/L Chloride 98 100 (98-107) mmol/L Carbon Dioxide 36 H 33 H (21-32) mmol/L BUN 28 H 26 H (6-23) mg/dl Creatinine 0.70 0.66 (0.6-1.4) mg/dl Glucose 103 H 128 H (70-99(Fasting)) mg/dl Calcium 9.4 9.3 (8.6-10.3) mg/dl AST 19 (13-39) U/L ALT 14 (7-52) U/L Alkaline Phosphatase 103 (34-104) U/L Total Protein 7.1 (6.0-8.3) gm/dl Albumin 3.6 (3.4-5.0) gm/dl Intake and Output 04/14/23 04/15/23 04/15/23 22:59 06:59 14:59 Intake Total 100 / 200 100 / 100 Output Total 850 / 850 Balance 100 / 200 -750 / -750 Intake: IV 100 / 200 100 / 100 Doxycycline Hyclate 100 mg In 100 / 100 Dextrose 5% Mini-B 100 ml @ 50 mls/hr IV NOW STA Rx#:[id number] Piperacillin/Tazobactam 4.5 gm 100 / 100 In Dextrose 5% Mini-B 100 ml @ 200 mls/hr IV NOW ONE Rx#: [id number] Oral 0 / 0 Output: Urine Amount (Catheter) 850 / 850 Rodney/Indwelling 850 / 850 Other: Weight 100.9 kg Weight Measurement Method Chair Scale Diagnostic Findings Outpatient Echo 09/21/2022 The examination is adequate to evaluate the referral indication. The left ventricular cavity size is normal. The LV wall thickness is moderately increased (concentric). There is borderline diffuse left ventricular hypokinesis. The qualitative LV ejection fraction is 50-54% (normal). The left atrium is severely enlarged (>48 ml/m^2,). Moderate aortic valve sclerosis is present. Mild aortic valve regurgitation is present. Mild mitral regurgitation is present. Mild tricuspid regurgitation is present. The estimated pulmonary artery systolic pressure is 50-60mm Hg
--- NOTE | 2023-04-15 13:59 | Hospitalist Progress Note ---
Date of Service April 15, 2023 Assessment & Plan (1) Acute on chronic diastolic HF (heart failure): Plan 87-year-old male with PMH chronic diastolic heart failure [2022 TTE with EF of 50 to 54%], A-fib not on anticoagulation 2/2 LGIB, SORAYA on CPAP, pulmonary HTN, PVD status post surgery, Gilbert's syndrome, DVT, chronic lymphedema/stasis dermatitis, prediabetes, melanoma, BPH, past tobacco abuse came in with 1 week history of worsening BLE swelling extending to abdomen and scrotum. Patient denies chest pain or cough. Reports increased shortness of breath on exertion. Patient reports being compliant with home medications and CPAP. 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 He denied fevers at presentation. He is being managed for the following: Hypoxia Anasarca:BLE swelling extending up to the scrotum and abdomen at presentation Acute on chronic HFpEF O2 saturation was noted to be in 80s upon arrival to the ED. Improved with 2 to 3 L oxygen. Likely secondary to acute on chronic heart failure. Admitting CTAP with prostatomegaly, anasarca. Admitting CTA chest with no PE, with moderate bilateral pleural effusion. Admitting respiratory viral panel negative. Patient started on IV Lasix twice daily, continue same. Monitor renal function, monitor and replete electrolytes. 2022 TTE with EF of 50 to 54%. Strict I's and O's, low-sodium diet, fluid restriction, echo. Telemetry monitoring. Cardiology on board, appreciate recommendation. Wean down oxygen as tolerated, CPAP at bedtime as at home BLE cellulitis BLE swelling associated with blister: Likely secondary to CHF, complicated by cellulitis/chronic lymphedema and stasis dermatitis/new onset bullous & blistering pathology Sepsis POA: Secondary to above. Heart rate and respiratory rate elevated at presentation. Lactate WNL. Admitting BLE venous Doppler: Negative for DVT. Doxycycline started for BLE cellulitis 04/15, continue Wound care nurse Dermatology consult re: bullous/blistering lesions lower extremities Follow admitting blood and wound culture. Concern of aspiration: Per history given by patient. Speech evaluating, will follow. Hematuria, scrotal edema, prostatomegaly: Hematuria likely secondary to complicated Rodney placement in the ED. Patient also has prostatomegaly. Consult urology, maintain Rodney for now. Await recs. Other chronic medical conditions: Continue with/resume home meds as and when able SORAYA, compliant with CPAP Permanent A-fib/history DVT not on anticoagulation secondary to LGIB, rate slightly elevated PVD status post surgery prediabetes, hemoglobin A1c of 6.22 December 2022 hx melanoma (epigastrium) status post surgery past tobacco abuse D[facility] Full [facility] Admission and Anticipated Discharge Date Admission Date: April 15, 2023 Subjective Patient was seen and examined at bedside. Patient was lying semiupright in bed, on 2 L oxygen via nasal cannula, resting comfortably, dysarthric, hard of hearing. Patient reports feeling better, improvement in his leg pain, reports ongoing shortness of breath and states that he never had to use oxygen before. Rodney catheter with darker red urine noted. Physical Exam Physical Exam: GENERAL: Alert and awake. NAD, on 2L O2 via NC. Appears chronically ill/weak/frail. [place]. Dysarthric. HEENT: No pallor, no icterus. Pupils equal, round and reactive to light. Oral mucosa moist. NECK: No JVD, no neck masses. HEART: S1 and S2 heard. irregular rate and rhythm. Tachycardia. No murmur, no gallop. RESPIRATORY SYSTEM: Normal AP diameter. No accessory muscle use. No wheezing, no crackles. decreased bb breath sounds. ABDOMEN: Soft, bowel sounds present, nontender, + distention. abd wall edema present. CENTRAL NERVOUS SYSTEM: No facial droop. dysarthria +. Obeys simple commands. Moves extremities. EXTREMITIES: No edema, no erythema seen. : swollen scrotum and testes; nontender non erythematous. Rodney catheter w/ blood stains around insertion and bloody urine in the bag. BLE swelling with overlying 2+ pitting edema & bullous/blister lesions on top of chronic lymphedema. Tender to touch. Erythematous. Results & Data Results & Data Vital Signs (Past 12 Hours) Vital Signs Pulse Resp BP Pulse Ox Pulse Ox O2 Del Method O2 Del Method 04/15/23 12:00 116/74 04/15/23 12:00 99 H 20 95 Nasal Cannula 04/15/23 10:19 104 H 28 H 96 Nasal Cannula 04/15/23 10:19 127/77 04/15/23 10:10 108 H 21 95 04/15/23 08:03 95 Nasal Cannula 04/15/23 07:33 108 H 04/15/23 07:32 Nasal Cannula 04/15/23 07:22 105 H 121/94 94 Nasal Cannula 04/15/23 04:31 95 Nasal Cannula 04/15/23 03:30 92 H 25 H 93 04/15/23 03:30 121/75 04/15/23 03:20 96 H 24 94 04/15/23 03:10 24 94 04/15/23 03:01 119/101 H 04/15/23 03:01 106 H 20 04/15/23 03:00 107 H 21 04/15/23 02:50 95 H 22 04/15/23 02:40 88 18 95 04/15/23 02:30 116/88 04/15/23 02:30 96 H 23 04/15/23 02:20 107 H 24 04/15/23 02:10 21 04/15/23 02:00 120 H 22 94 04/15/23 01:58 99 H 21 93 O2 Flow Rate O2 Flow Rate 04/15/23 12:00 04/15/23 12:00 2 04/15/23 10:19 2 04/15/23 10:19 04/15/23 10:10 04/15/23 08:03 2 04/15/23 07:33 04/15/23 07:32 2 04/15/23 07:22 2 04/15/23 04:31 2 04/15/23 03:30 04/15/23 03:30 04/15/23 03:20 04/15/23 03:10 04/15/23 03:01 04/15/23 03:01 04/15/23 03:00 04/15/23 02:50 04/15/23 02:40 04/15/23 02:30 04/15/23 02:30 04/15/23 02:20 04/15/23 02:10 04/15/23 02:00 04/15/23 01:58
--- NOTE | 2023-04-15 15:00 | Fluoroscopy Report ---
MODIFIED BARIUM SWALLOW CLINICAL HISTORY: assess for aspiration COMPARISON STUDY: None. FLUOROSCOPY TIME: 2.5 minutes. Ka, r: 10.4 mGy. TECHNIQUE: A modified barium swallow was performed in conjunction with Speech Pathology. The patient ingested varying consistencies of barium containing material. Video fluoroscopy was performed. FINDINGS: Multiple episodes of a small amount of tracheal aspiration with thin liquids and nectar thi ck liquids was noted. Epiglottic inversion was diminished. Moderate residuals within the piriform sin uses and vallecula were noted with nectar consistency. No aspiration was identified with pudding or c racker in pudding consistencies however significant residuals were noted within the vallecula and pir iform sinuses. IMPRESSION: 1. Multiple episodes of a small amount of tracheal aspiration with thin liquids and nectar thick flui ds, as described above. No aspiration with pudding or cracker in pudding consistencies. 2. Significant residuals within the piriform sinuses and vallecula with multiple consistencies. 3. Full recommendations by Speech pathology to follow. ACT 112: Negative or not required by law. Electronically signed by: Romel Amador M.D. 04/15/2023 2:59 PM
--- NOTE | 2023-04-15 19:52 | Electrocardiogram Report ---
Test Reason : Blood Pressure : / mmHG Vent. Rate : 096 BPM Atrial Rate : 000 BPM P-R Int : 000 ms QRS Dur : 084 ms QT Int : 336 ms P-R-T Axes : 000 -08 052 degrees QTc Int : 424 ms Atrial fibrillation Abnormal ECG When compared with ECG of 24-DEC-2014 05:55, Atrial fibrillation has replaced Sinus rhythm Confirmed by Adam John ([id number]) on 04/15/2023 7:51:53 PM Referred By: REFERRED SELF Confirmed By:Alejandro John
--- NOTE | 2023-04-15 20:39 | Urology Consultation ---
<Statement entered by Rashel Manrique MD - 04/16/23 00:48> I have discussed Mr. Fraser's case with Abhishek Gilman PA-C and agree with the above documentation. Would recommend scrotal elevation/support when he is in bed, seated and moving around. Hopefully this will help with some of the edema. No plan for surgical intervention at this time. Hematuria most likely in the setting of traumatic catheterization. Continue to monitor as urine clears. If catheter becomes obstructed, which gently hand irrigate with saline to remove any clots. Once some of the edema improves, would be reasonable to perform a voiding trial. This can also be done as an outpatient if he has lingering edema. -Rashel Manrique MD. Date of Consultation April 15, 2023 Assessment & Plan (1) Hematuria: Patient has been admitted on the hospital service secondary to decompensated CHF. Will defer management of this condition to their discretion. From a urologic perspective we recommend the following: I suspect the patient's scrotal and penile edema is likely due to anasarca may be related to his underlying decompensated CHF I suspect the patient's hematuria is from his Rodney catheter placement as nursing reportedly had a challenging time placing the Rodney catheter. At the present time it appears that the patient's hematuria is clearing. Would recommend maintaining the Rodney catheter gravity drainage and if it becomes clogged the manual irrigation and flushing can be employed Once the patient's penile and scrotal swelling have improved consideration be given to performing a voiding trial would recommend maintaining Rodney catheter for the present time Additional recommendations to be forthcoming based on his clinical course as unfolds History of Present Illness Reason for Consultation: Hematuria and scrotal edema Attending Physician: Eliseo Pedraza MD History of Present Illness This is a 87-year-old male who was admitted to the hospital on 04/14/2023. The patient was brought to the emergency department secondary to 1 week of worsening bilateral lower extremity edema which is extended into his abdomen and scrotum. Patient does not report any chest pain or shortness of breath. He does report coughing with meals. The patient was ultimately admitted secondary to acute hypoxemic respiratory failure secondary to decompensated heart failure. Due to the patient's CHF and scrotal edema was felt the patient required a Rodney catheter. Per reports nursing staff was able to place a Rodney catheter in the emergency department with difficulty. The patient has subsequently developed hematuria. Urology has been asked to see the patient secondary to his scrotal swelling as well as hematuria. I did ask questions concerning the patient's urinary habits and the patient notes that when he is at home he feels as though his urine stream is normal and he can empty his bladder. He denies any dysuria or hematuria prior to his hospitalization. Patient denies any back or flank pain. At the present time the patient notes that he does not have any penile or scrotal pain. Since arrival to the hospital the patient has had labs and imaging which independent reviewed. On 04/14/2023 the patient underwent a CT scan of the abdomen pelvis. This showed some wall thickening of the urinary bladder as well as an enlarged prostate measuring 5.2 cm. There is no hydronephrosis noted bilaterally. Patient was noted to have anasarca with severe scrotal and penile edema. There is no intraperitoneal free air on the abdominal portion of this exam. A chest CT scan showed moderate bilateral pleural effusions with subsequent airspace consolidations. He also was noted to have no evidence of pulmonary emboli. Patient had bilateral lower extremity venous ultrasounds that showed no evidence of DVT bilaterally. Most recent labs include a CBC from today which showed white blood cell count and hemoglobin were normal. The hematocrit was high at 53.8. Platelet count was normal. Chemistry profile from today showed sodium and potassium were normal. The patient's BUN was elevated 26 and the creatinine was normal. Lactic acid level from 04/14/2023 was nonelevated. Patient did have a urinalysis from today that showed cloudy urine with no nitrites or leukocyte Estrace. The patient was not noted to have any bacteria or pyuria on this study. At the time my interview the patient was resting comfortably in bed and he was no distress. Allergies Allergy/AdvReac Type Severity Reaction Status Date / Time adhesive tape Allergy Unknown skin Verified 04/15/23 02:10 irritation nutmeg oil (Myristica seed Allergy Unknown Unknown Verified 04/15/23 02:10 oil) lisinopril AdvReac Unknown cough Verified 12/24/14 06:28 UNKNOWN BP MEDICATION Allergy Unknown rash at Uncoded 03/18/14 11:52 ankles Home Medications Medication Instructions Recorded Confirmed Type aspirin 81 mg tablet,delayed 81 mg PO DAILY 04/15/23 04/15/23 History release atorvastatin 20 mg tablet 20 mg PO QAM 04/15/23 04/15/23 History empagliflozin 25 mg tablet 25 mg PO QAM 04/15/23 04/15/23 History (Jardiance) furosemide 20 mg tablet 40 mg PO QAM 04/15/23 04/15/23 History metoprolol succinate 25 mg 25 mg PO QAM 04/15/23 04/15/23 History tablet,extended release 24 hr silver sulfadiazine 1 % topical 1 applic topical DAILY 04/15/23 04/15/23 History cream (SSD) tamsulosin 0.4 mg capsule 0.4 mg PO QAM 04/15/23 04/15/23 History Patient History Medical History Lymphedema Atrial fibrillation CHF (congestive heart failure) Hypertension Social History Smoking Status: Former smoker Second Hand Exposure: No; Do You Dip or Chew Tobacco: No; Tobacco Cessation Education Requested by Patient: No Hx Alcohol Use: No Hx Substance Use: No Preferred Language: Slovak Communication Ability: Effective Application Development Intern Required: Yes Beliefs That Will Affect Care: None Current Living Situation: Alone Feels Safe at Home: Yes Safety Concerns: Feels Safe At This Time Assistive Devices: Hearing Aid - Bilateral and Walker Review of Systems Constitutional: no fever and no chills Ear, Nose, Mouth, Throat: no hearing loss Respiratory: + cough Cardiovascular: no chest pain Gastrointestinal: no abdominal pain, no nausea and no vomiting Genitourinary: + as per Subjective / HPI Musculoskeletal: no back pain Integumentary: no rash Neurologic: no localized weakness Physical Exam Constitutional: no acute distress Eyes: no conjunctival abnormality ENMT: Ears: no hearing impairment and no external ear abnormality Mouth: no oropharynx abnormality Neck: trachea midline Respiratory: Breath sounds are decreased at bases. No wheezing noted. He was not using accessory muscles and respiration at the time of my exam Cardiovascular: Rate/Rhythm: regular rate and regular rhythm Gastrointestinal (Abdomen): Soft and nontender. There is no suprapubic discomfort to palpation Musculoskeletal: Patient had marked lower extremity edema noted bilaterally of his lower extremities Skin: no rashes Neurologic: moves all extremities Psychiatric: A+Ox3, euthymic affect Genitourinary: Patient had marked swelling of his penile shaft as well as scrotum. The patient scrotum was nontender to palpation at the time of my exam. The scrotum did have a small amount of erythema but there were no open wounds or sores. There is no crepitus noted in the soft tissue of his perineum or scrotum. There are no areas of eschar. The patient did have a Rodney catheter in place. The Rodney catheter at the time of my exam was draining clear urine with an occasional blood clot. There was some dried blood on the Rodney catheter near the urethral meatus. Results & Data Vital Signs (Past 12 Hours) Vital Signs Temp Pulse Pulse Resp BP BP Pulse Ox 04/15/23 19:50 36.6 C 85 18 136/89 94 04/15/23 18:30 04/15/23 16:50 89 24 96 04/15/23 16:40 82 23 98 04/15/23 16:30 107 H 96 04/15/23 16:20 89 22 100 04/15/23 16:10 91 H 04/15/23 16:00 93 H 20 97 04/15/23 16:00 121/75 04/15/23 16:00 04/15/23 15:50 89 99 04/15/23 15:40 91 H 91 04/15/23 15:30 78 20 90 04/15/23 15:20 73 20 94 04/15/23 15:12 92 H 04/15/23 15:10 84 21 100 04/15/23 15:00 91 H 93 04/15/23 14:50 98 H 24 04/15/23 14:40 97 H 24 04/15/23 14:30 91 H 04/15/23 13:00 114 H 20 98 04/15/23 13:00 113/72 04/15/23 12:00 116/74 04/15/23 12:00 99 H 20 95 04/15/23 10:19 104 H 28 H 96 04/15/23 10:19 127/77 04/15/23 10:10 108 H 21 95 O2 Del Method O2 Del Method O2 Flow Rate 04/15/23 19:50 Nasal Cannula 04/15/23 18:30 Room Air 04/15/23 16:50 04/15/23 16:40 04/15/23 16:30 04/15/23 16:20 04/15/23 16:10 04/15/23 16:00 04/15/23 16:00 04/15/23 16:00 Room Air 04/15/23 15:50 04/15/23 15:40 04/15/23 15:30 04/15/23 15:20 04/15/23 15:12 04/15/23 15:10 04/15/23 15:00 04/15/23 14:50 04/15/23 14:40 04/15/23 14:30 04/15/23 13:00 Nasal Cannula 2 04/15/23 13:00 04/15/23 12:00 04/15/23 12:00 Nasal Cannula 2 04/15/23 10:19 Nasal Cannula 2 04/15/23 10:19 04/15/23 10:10 PG Care Time/CCT Total # of Minutes Spent Total Time Spent with Patient: Total time spent is greater than 50% in coordination of care (as documented) at patient's floor/unit and/or counseling patient: Coding Level of Care Code 73944 INT INP/OBS CARE 3/75MIN Diagnoses Hematuria R31.9
[2023-04-15] MEDS: DOXYCYCLINE HYCLATE 100 MG CAP PO SCH (21:49)
--- NOTE | 2023-04-16 07:52 | Cardiology Progress Note ---
Date of Service April 16, 2023 Assessment & Plan (1) Acute hypoxemic respiratory failure: (2) Acute on chronic diastolic HF (heart failure): (3) Pleural effusion: (4) Bilateral cellulitis of lower leg: (5) Permanent atrial fibrillation: Plan IMPRESSION: 87 year old male presented to [facility] emergency department with acute hypoxic respiratory failure secondary to acute on chronic diastolic CHF Patient markedly volume overloaded--at minimum up 20 pounds from baseline. Echocardiogram: preserved LVEF 55-60%, no WMA, mild to mod MR, mod to severe TR, RV pressure elevated with dilated IVC consistent with vL overload, large left pleural effusion. PLAN: Acute on chronic HFpEF: -Patient remains markedly volume overloaded, tolerating IV diuresis-- increase Lasix to 40 mg TID -Monitor renal function and electrolytes, potassium goal of 4.0 and mag goal of 2.0, replace as necessary, will start KCL 20 meq BID. -Large left pleural effusion noted on echo, CXR ordered-- may need to c onsider pulmonary consult for potential thoracentesis. -Future considerations of adding spironolactone -Jardiance currently on hold to allow for aggressive diuresis. -Strict I's and O's, 2 g sodium restriction, 1500 cc fluid restriction, CHF education, daily standing weights. Acute hypoxic respiratory failure: -Supportive measures per primary service. Diuresis will help oxygenation levels. Wean O2 as able. -CPAP during sleep time hours encouraged Bilateral lower extremity cellulitis: -Diuresis will help improve edema, antibiotics per primary service. -Blood cultures and wound cultures pending. Permanent atrial fibrillation: -Known permanent atrial fibrillation with elevated [id number] however high bleeding risk with history of lower GI bleed. Not currently on anticoagulation. Only aspirin. Case discussed with Dr. Jackson. Will follow. I spent a total of 40 minutes on the date of service in preparation, delivery, and documentation of the care provided to the patient excluding any time spent in the performance of separately billed services. KM Mello Department of Cardiology, [facility] This chart was completed in part utilizing Speech Voice Recognition Software. Grammatical errors, random word insertions, pronoun errors, and incomplete sentences are an occasional consequence of this system due to software limitations, ambient noise, and hardware issues. Any formal questions or concerns about the content, text, or information contained within the body of this dictation should be directly addressed to the provider for clarification. Admission and Anticipated Discharge Date Admission Date: April 15, 2023 Supervising Physician Co-Signing Physician Notes Patient seen and personally examined. Full assessment and plan as well outlined above. Patient is responding to diuretic dosing but significant volume overload, subacute with dwindling functional capacity over the past 6 weeks. Preserved LV systolic function though with dilated right ventricle and elevated pulmonary pressures Will continue current dosing of IV furosemide 40 mg 3 times daily Not on spironolactone due to difficulties with hyperkalemia as outpatient Resume Jardiance once scrotal edema and lower extremity edema resolved for diastolic dysfunction as well as an diabetes mellitus Subjective 87-year-old male admitted to [facility] emergency department secondary to acute on chronic diastolic CHF. Patient was markedly volume loaded for loaded and up at minimum 20 pounds from baseline. 04/15/2023: Anasarca noted on exam. Rodney catheter placed. IV diuresis initiated with Lasix 40 mg twice daily Lower extremity cellulitis--treated with IV antibiotics per primary team Echocardiogram: preserved LVEF 55-60%, no WMA, mild to mod MR, mod to severe TR, RV pressure elevated with dilated IVC consistent with vL overload, large left pleural effusion. 04/16/2023: Upon entrance into the room Telemetry: AFIB with PVCs 90-100s, short bursts of atrial tach. I&O: -4.2L Weight: 100.9 kg >>100.5 kg Labs: Stable sCr, K 4.2. Physical Exam Constitutional: + ill appearing; no acute distress Neck: normal visual inspection and trachea midline Respiratory: normal respiratory effort and + cough Auscultation: + rales; no rhonchi and no wheezes Cardiovascular: Rate/Rhythm: regular rate and + irregularly irregular Heart Sounds: normal S1, normal S2 and + murmur (+2/6 systolic murmur) Vessels: + JVD Extremities: + pedal edema (right heel ulceration) and + edema (+4 BLLE pitting edema to abdomen/scrotum) Gastrointestinal (Abdomen): Inspection/Auscultation: + abdomen distended and + abdominal edema Percussion/Palpation: abdomen soft Skin: + wound (right heel ulceration) Psychiatric: Orientation: alert and oriented x 3 (garbled speech) Genitourinary: + scrotum abnormality (swollen ) Results & Data Vital Signs (Past 12 Hours) Vital Signs Temp Pulse Resp BP Pulse Ox O2 Del Method O2 Flow Rate 04/16/23 03:17 36.6 C 108 H 18 123/61 95 Nasal Cannula 04/15/23 23:02 36.6 C 97 H 18 125/72 96 Nasal Cannula 04/15/23 21:29 Nasal Cannula 2 04/15/23 19:50 36.6 C 85 18 136/89 94 Nasal Cannula Laboratory Results CBC 04/16/23 Range/Units 07:59 WBC 8.41 (4.8-10.8) K/ul RBC 5.48 (4.70-6.10) M/uL Hgb 15.3 (14.0-18.0) g/dl Hct 50.8 (42.0-52.0) % Plt Count 146 (130-400) K/uL Comprehensive Metabolic Panel 04/16/23 04/16/23 Range/Units 07:59 08:32 Sodium 142 (136-145) mmol/L Potassium TNP 4.2 Chloride 101 (98-107) mmol/L Carbon Dioxide 38 H (21-32) mmol/L BUN 26 H (6-23) mg/dl Creatinine 0.76 (0.6-1.4) mg/dl Glucose 117 H (70-99(Fasting)) mg/dl Calcium 9.2 (8.6-10.3) mg/dl Intake and Output 04/15/23 04/16/23 04/16/23 22:59 06:59 14:59 Intake Total 200 / 800 Output Total 1101 / 5101 2150 / 5101 Balance -1101 / -4301 -1950 / -4301 Intake: Oral 200 / 700 Output: Urine Amount (Catheter) 1100 / 5100 2150 / 5100 Rodney/Indwelling 1100 / 5100 2150 / 5100 # Bowel Movements Other: Other Intake Source sips Weight 100.5 kg Medications Administered Current Medications Acetaminophen (Acetaminophen 325 Mg Tab) 650 mg PO Q4H PRN PRN Reason: Pain or Fever Stop: 05/15/23 04:30 Aspirin (Aspirin 81 Mg Ectab) 81 mg PO DAILY [facility] Stop: 05/15/23 08:59 Last Admin: 04/16/23 10:49 Dose: 81 mg Atorvastatin Calcium (Atorvastatin 20 Mg Tab) 20 mg PO QAM [facility] Stop: 05/15/23 08:59 Last Admin: 04/16/23 10:50 Dose: 20 mg Doxycycline Hyclate (Doxycycline Hyclate 100 Mg Cap) 100 mg PO BID [facility] Stop: 04/22/23 20:59 Last Admin: 04/16/23 10:49 Dose: 100 mg Enoxaparin Sodium (Enoxaparin Inj 40 Mg/0.4 Ml Syr) 40 mg SQ [facility] Stop: 05/15/23 08:59 Last Admin: 04/16/23 10:47 Dose: 40 mg Furosemide (Furosemide 40 Mg/4 Ml Vial) 40 mg IV TIDM [facility] Stop: 05/16/23 11:59 Metoprolol Succinate (Metoprolol Succ 25mg Ext Rel Tab) 25 mg PO [facility] Stop: 05/15/23 08:59 Last Admin: 04/16/23 10:49 Dose: 25 mg Potassium Chloride (Potassium Chloride Crtab 20 Meq Tabcr) [facility] Stop: 05/16/23 10:14 Tamsulosin HCl (Tamsulosin Hcl 0.4 Mg Cap) 0.4 mg PO [facility] Stop: 05/15/23 08:59 Last Admin: 04/16/23 10:48 Dose: 0.4 mg
[2023-04-16 08:28] LABS: Hematocrit (blood only) 50.8 % (42.0-52.0); Hemoglobin 15.3 g/dl (14.0-18.0); Mean Corpuscular Hemoglobin 27.9 pg (25.0-34.0); Mean Corpuscular Hgb Conc 30.1 g/dL (32.0-36.0); Mean Corpuscular Volume 92.7 fL (80.0-100.0); Mean Platelet Volume 9.8 fL (9.4-12.4); Platelet Count 146 K/uL (130-400); RDW Coefficient of Variation 15.7 % (11.5-14.5); RDW Standard Deviation 52.9 fL (36.4-46.3); Red Blood Count 5.48 M/uL (4.70-6.10); White Blood Count 8.41 K/ul (4.8-10.8)
[2023-04-16 08:30] LABS: Anion Gap 3 (3-11); BUN Creatinine Ratio 34.2 (10-20); Blood Urea Nitrogen 26 mg/dl (6-23); Calcium 9.2 mg/dl (8.6-10.3); Carbon Dioxide 38 mmol/L (21-32); Chloride 101 mmol/L (98-107); Creatinine Clr Calc Pharmacy 78.5 ml/min; Est GFR (African American) 94.4 ml/min; Est GFR (Non-African American) 81.5 ml/min; Glucose 117 mg/dl (70-99(Fasting)); Magnesium 2.2 mg/dl (1.7-2.4); Sodium 142 mmol/L (136-145)
--- NOTE | 2023-04-16 10:45 | XRay Report ---
XR chest 1V portable CLINICAL HISTORY: Left pleural effusion. COMPARISON STUDY: Chest radiograph December 24, 2014. Chest CT April 15, 2023. FINDINGS: There is no pneumothorax. Large right and moderate left pleural effusions are noted with as sociated airspace opacities. There is cardiomegaly with pulmonary edema. IMPRESSION: 1. Large right and moderate left pleural effusions with associated airspace opacities. 2. Cardiomegaly with persistent pulmonary edema. ACT 112: Negative or not required by law. Electronically signed by: Romel Amador M.D. 04/16/2023 10:43 AM
[2023-04-16] MEDS: FUROSEMIDE 40 MG/4 ML VIAL IV SCH (13:18)
[2023-04-16] MEDS: POTASSIUM CHLORIDE CRTAB 20 MEQ TABCR PO SCH (13:18)
--- NOTE | 2023-04-16 13:36 | Urology Progress Note ---
Date of Service April 16, 2023 Assessment & Plan (1) Hematuria: (2) Edema of scrotum: (3) Edema of penis: Plan 87-year-old male admitted with acute on chronic heart failure, hypoxia, anasarca. Afebrile and hemodynamically stable. Labs reviewed -WBC 8.41, hemoglobin 15.3, creatinine 0.76. Rodney draining appropriatelyurine is clear yellow. Continue to monitor. No urological intervention warranted. Hematuria appears to have cleared and was likely in the setting of traumatic catheterization. If the catheter would become obstructed, can gently hand irrigate as needed. Once some of the edema improves, would be reasonable to perform a voiding trial. This can also be done as an outpatient if he has lingering edema. Recommend scrotal elevation/support when he is in bed, seated and moving around to help with some of the edema. Will arrange follow-up with our service. Urology will follow peripherally. Please call with any further questions or concerns. Admission and Anticipated Discharge Date Admission Date: April 15, 2023 Subjective Patient examined at bedside this AM. Awake, resting in bed on arrival. No acute distress. Rodney intact and draining yellow urine. Still with scrotal/penile edema. Denies any significant pain or discomfort at present. Review of Systems Constitutional: as per Subjective / HPI Genitourinary: + as per Subjective / HPI Physical Exam Constitutional: no acute distress Respiratory: no respiratory distress and no labored breathing Skin: no rashes Neurologic: moves all extremities Psychiatric: A+Ox3, euthymic affect Genitourinary: Rodney intact draining yellow urine. Significant edema of the penile shaft as well as scrotum. Mild erythema of the scrotum. No tenderness with palpation. No open areas, sores, or drainage. No crepitus. There are no areas of eschar. Results & Data Vital Signs (Past 12 Hours) Vital Signs Temp Pulse Resp BP Pulse Ox O2 Del Method O2 Flow Rate 04/16/23 10:56 36.4 C L 96 H 18 114/69 98 Nasal Cannula 2.0 04/16/23 08:24 36.7 C 71 20 113/62 96 Nasal Cannula 2.0 04/16/23 03:17 36.6 C 108 H 18 123/61 95 Nasal Cannula PG Care Time/CCT Total # of Minutes Spent Total Time Spent with Patient: Total time spent is greater than 50% in coordination of care (as documented) at patient's floor/unit and/or counseling patient: Coding Level of Care Code 26841 SUB INP/OBS CARE 2/35MIN Diagnoses Hematuria R31.9 Edema of scrotum N50.89 Edema of penis N48.89
--- NOTE | 2023-04-16 14:00 | Dermatology Consultation ---
Date of Consultation April 16, 2023 Assessment & Plan (1) Bullous dermatitis: Edema bullae secondary to acute on chronic CHF - Gradually improving. This is all secondary to acute fluid overload; no signs to suggest an infectious process. Recommend the followin) Continued diuresis/fluid management as per primary team and cardiology. 2) Continue local wound care to the lower legs. Agree with ABD pads and gauze wrap until bullae completely resolve and areas re-epithelialize. Continue to keep legs elevated when at rest. 3) Recommend discontinuation of antibiotics if blood cultures are finalized negative as this is likely not infectious in etiology, and there are no signs of secondary infection. Call with questions. Present on Admission?: Yes History of Present Illness Reason for Consultation: Blisters on lower legs Requesting Physician: Yaakov Brandt MD Attending Physician: Eliseo Pedraza MD History of Present Illness Patient is an 87 y/o WM admitted to [facility] on 04/15/2023 with acute respiratory failure secondary to acute on chronic CHF. He has a pertinent past medical history significant for chronic diastolic heart failure, atrial fibrillation, SORAYA, pulmonary hypertension, PVD, history of DVT and chronic lymphedema/stasis dermatitis. He reports that he developed acute worsening of of lower extremity swelling on 04/14/2023. He started to develop blisters on the lower legs which prompted him to present to the [facility] emergency department. He denies any itching or pain in the legs prior to onset of the blisters. He reports that this all happened very quickly. Since admission cardiology has been consulted to help with management of his diuresis, and urology has been consulted for evaluation of associated scrotal edema. He has been receiving local wound care to the lower legs. He denies any itching or pain in the legs today and reports that the swelling has reduced. He denies any skin complaints elsewhere on the body. No other complaints. Allergies Allergy/AdvReac Type Severity Reaction Status Date / Time adhesive tape Allergy Unknown skin Verified 04/15/23 02:10 irritation nutmeg oil (Myristica seed Allergy Unknown Unknown Verified 04/15/23 02:10 oil) lisinopril AdvReac Unknown cough Verified 12/24/14 06:28 UNKNOWN BP MEDICATION Allergy Unknown rash at Uncoded 03/18/14 11:52 ankles Home Medications Medication Instructions Recorded Confirmed Type aspirin 81 mg tablet,delayed 81 mg PO DAILY 04/15/23 04/15/23 History release atorvastatin 20 mg tablet 20 mg PO QAM 04/15/23 04/15/23 History empagliflozin 25 mg tablet 25 mg PO QAM 04/15/23 04/15/23 History (Jardiance) furosemide 20 mg tablet 40 mg PO QAM 04/15/23 04/15/23 History metoprolol succinate 25 mg 25 mg PO QAM 04/15/23 04/15/23 History tablet,extended release 24 hr silver sulfadiazine 1 % topical 1 applic topical DAILY 04/15/23 04/15/23 History cream (SSD) tamsulosin 0.4 mg capsule 0.4 mg PO QAM 04/15/23 04/15/23 History Patient History Medical History Lymphedema Atrial fibrillation CHF (congestive heart failure) Hypertension Social History Smoking Status: Former smoker Second Hand Exposure: No; Do You Dip or Chew Tobacco: No; Tobacco Cessation Education Requested by Patient: No Hx Alcohol Use: No Hx Substance Use: No Preferred Language: Bulgarian Communication Ability: Effective Quality Assurance/R&D Lab Technician Required: Yes Beliefs That Will Affect Care: None Current Living Situation: Alone Feels Safe at Home: Yes Safety Concerns: Feels Safe At This Time Assistive Devices: Hearing Aid - Bilateral and Walker Review of Systems Review of Systems: All systems reviewed & are unremarkable except as noted in Subjective Physical Exam Physical Exam: General Appearance:Well developed, well-nourished and in no acute distress Psych:Alert, Oriented and Appropriate Skin Type:2 Right Lower Extremity:3+ pitting edema with large, flaccid bulla on the mid mcdaniel; +background cobblestoning Left Lower Extremity:3+ pitting edema with large, flaccid bulla on the mid mcdaniel; +oval, clean-based ulceration with base of granulation tissue on the mid lateral mcdaniel Buttocks/Groin/Genitalia: +scrotal edema noted Results & Data Vital Signs (Past 12 Hours) Vital Signs Temp Pulse Resp BP Pulse Ox O2 Del Method O2 Flow Rate 04/16/23 10:56 36.4 C L 96 H 18 114/69 98 Nasal Cannula 2.0 04/16/23 08:24 36.7 C 71 20 113/62 96 Nasal Cannula 2.0 04/16/23 03:17 36.6 C 108 H 18 123/61 95 Nasal Cannula Laboratory Results 04/16/23 04/16/23 Range/Units 08:32 07:59 WBC 8.41 (4.8-10.8) K/ul RBC 5.48 (4.70-6.10) M/uL Hgb 15.3 (14.0-18.0) g/dl Hct 50.8 (42.0-52.0) % MCV 92.7 (80.0-100.0) fL MCH 27.9 (25.0-34.0) pg MCHC 30.1 L (32.0-36.0) g/dL RDW Std Deviation 52.9 H (36.4-46.3) fL RDW Coeff of Ella 15.7 H (11.5-14.5) % Plt Count 146 (130-400) K/uL MPV 9.8 (9.4-12.4) fL Sodium 142 (136-145) mmol/L Potassium 4.2 TNP Chloride 101 (98-107) mmol/L Carbon Dioxide 38 H (21-32) mmol/L Anion Gap 3 (3-11) BUN 26 H (6-23) mg/dl Creatinine 0.76 (0.6-1.4) mg/dl Est Cr Clr Drug Dosing 78.5 ml/min Est GFR ( Amer) 94.4 ml/min Est GFR (Non-Af Amer) 81.5 ml/min BUN/Creatinine Ratio 34.2 H (10-20) Glucose 117 H (70-99(Fasting)) mg/dl Calcium 9.2 (8.6-10.3) mg/dl Magnesium 2.2 (1.7-2.4) mg/dl Diagnostic Findings Imaging and Microbiology reviewed in [facility]. Medications Administered MAR reviewed in [facility]. PG Care Time/CCT Total # of Minutes Spent Total Time Spent with Patient: Total time spent is greater than 50% in coordination of care (as documented) at patient's floor/unit and/or counseling patient: Coding Level of Care Code 16195 INT INP/OBS CARE 2/55MIN Diagnoses Bullous dermatitis L13.9
--- NOTE | 2023-04-16 17:04 | Hospitalist Progress Note ---
Date of Service April 16, 2023 Assessment & Plan (1) Acute on chronic diastolic HF (heart failure): Plan 87-year-old male with PMH chronic diastolic heart failure [2022 TTE with EF of 50 to 54%], A-fib not on anticoagulation 2/2 LGIB, SORAYA on CPAP, pulmonary HTN, PVD status post surgery, Gilbert's syndrome, DVT, chronic lymphedema/stasis dermatitis, prediabetes, melanoma, BPH, past tobacco abuse came in with 1 week history of worsening BLE swelling extending to abdomen and scrotum. Patient denies chest pain or cough. Reports increased shortness of breath on exertion. Patient reports being compliant with home medications and CPAP. 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 He denied fevers at presentation. He is being managed for the following: Hypoxia Anasarca:BLE swelling extending up to the scrotum and abdomen at presentation Acute on chronic HFpEF O2 saturation was noted to be in 80s upon arrival to the ED. Improved with 2 to 3 L oxygen. Likely secondary to acute on chronic heart failure. Admitting CTAP with prostatomegaly, anasarca. Admitting CTA chest with no PE, with moderate bilateral pleural effusion. Admitting respiratory viral panel negative. CXR with volume overload. Patient getting diuresis with IV Lasix, cardiology managing. Monitor renal function, monitor and replete electrolytes. 2022 TTE with EF of 50 to 54%. 04/16/2023 echo with EF of 55 to 60%, right atrium is severely dilated. Strict I's and O's, low-sodium diet, fluid restriction, echo. Telemetry monitoring. Cardiology on board, appreciate recommendation. Wean down oxygen as tolerated, CPAP at bedtime as at home BLE cellulitis BLE swelling associated with blister: Likely secondary to CHF, complicated by cellulitis/chronic lymphedema and stasis dermatitis/new onset bullous & blistering pathology Sepsis POA: Secondary to above. Heart rate and respiratory rate elevated at presentation. Lactate WNL. Admitting BLE venous Doppler: Negative for DVT. Doxycycline started for BLE cellulitis 04/15, continue Wound care nurse Dermatology consult re: bullous/blistering lesions lower extremities, appreciate recommendation. Follow admitting blood and wound culture. Concern of aspiration: Per history given by patient. Speech evaluating, will follow. Hematuria, scrotal edema, prostatomegaly: Hematuria likely secondary to complicated Rodney placement in the ED. Patient also has prostatomegaly. Urology evaluated, appreciate recs. Follow-up with urology upon discharge. Dysarthria: Noted at admission, deemed to be chronic per family member but no clear cause of dysarthria as per outpatient record review. Will get MRI brain to rule out stroke. Other chronic medical conditions: Continue with/resume home meds as and when able SORAYA, compliant with CPAP Permanent A-fib/history DVT not on anticoagulation secondary to LGIB, rate slightly elevated PVD status post surgery prediabetes, hemoglobin A1c of 6.22 December 2022 hx melanoma (epigastrium) status post surgery past tobacco abuse DVT prophylaxis. Lovenox subcu Full code Admission and Anticipated Discharge Date Admission Date: April 15, 2023 Subjective Patient was seen and examined at bedside. Patient was lying in bed, on 2 L oxygen via nasal cannula, resting comfortably, dysarthric, hard of hearing. Patient reports feeling better, denies pain. Rodney catheter with yellow urine collection noted. Physical Exam Physical Exam: GENERAL: Alert and awake. NAD, on 2L O2 via NC. Appears chronically ill/weak/frail. [place]. Dysarthric. HEENT: No pallor, no icterus. Pupils equal, round and reactive to light. Oral mucosa moist. NECK: No JVD, no neck masses. HEART: S1 and S2 heard. irregular rate and rhythm. Tachycardia. No murmur, no gallop. RESPIRATORY SYSTEM: Normal AP diameter. No accessory muscle use. No wheezing, no crackles. decreased bb breath sounds. ABDOMEN: Soft, bowel sounds present, nontender, no distention. lower abd wall edema present. CENTRAL NERVOUS SYSTEM: No facial droop. dysarthria +. Obeys simple commands. Moves extremities. EXTREMITIES: No edema, no erythema seen. : swollen scrotum and testes; nontender non erythematous. Rodney catheter w/ blood stains around insertion and bloody urine in the bag. BLE swelling with overlying 2+ pitting edema , improving erythema, clean dressing w/o soakage. Results & Data Results & Data Vital Signs (Past 12 Hours) Vital Signs Temp Pulse Resp BP Pulse Ox O2 Del Method O2 Flow Rate 04/16/23 16:24 36.4 C L 110 H 20 116/76 94 Nasal Cannula 2.0 04/16/23 10:56 36.4 C L 96 H 18 114/69 98 Nasal Cannula 2.0 04/16/23 08:24 36.7 C 71 20 113/62 96 Nasal Cannula 2.0
[2023-04-16] MEDS: GADOBUTROL 65ML VIAL IV ONE (21:52)
--- NOTE | 2023-04-16 23:27 | Magnetic Resonance Report ---
Exam(s): MRI HEAD W/WO Contrast IV Amt: 10mL Gadavist given IV EXAM: MR Head Without and With Intravenous Contrast CLINICAL HISTORY: Reason for exam: ro stroke; dysarthria. TECHNIQUE: Magnetic resonance images of the head/brain without and with intravenous contrast in multiple planes. CONTRAST: Patient received 10mL Gadavist given IV of IV contrast COMPARISON: No relevant prior studies available. FINDINGS: Brain: Remote ischemic injury of the right cerebellum. Remote ischemic injury of the right occipital lobe with encephalomalacia and gliosis. There is a dilated perivascular space or remote lacunar infarct of the right thalamus. No mass. No hemorrhage. No acute infarct. The flow voids of the base of the brain are intact. Moderate nonspecific white matter changes. Normal enhancement. The dural venous sinuses are patent. Ventricles: Moderate ventriculomegaly. Bones/joints: Unremarkable. No acute fracture. Sinuses: Chronic left maxillary and ethmoid sinusitis. No acute sinusitis. Mastoid air cells: Unremarkable as visualized. No mastoid effusion. Orbits: Bilateral lens replacements with axial myopia. IMPRESSION: No evidence of acute intracranial pathology. Electronically signed by: Vonda Salter MD 04/16/23 23:26 PM
--- NOTE | 2023-04-17 06:49 | Cardiology Progress Note ---
Date of Service April 17, 2023 Assessment & Plan (1) Acute hypoxemic respiratory failure: (2) Acute on chronic diastolic HF (heart failure): (3) Pleural effusion: (4) Bilateral cellulitis of lower leg: (5) Permanent atrial fibrillation: Plan IMPRESSION: 87 year old male presented to [facility] emergency department with acute hypoxic respiratory failure secondary to acute on chronic diastolic CHF Patient markedly volume overloaded--at minimum up 20 pounds from baseline. Echocardiogram: preserved LVEF 55-60%, no WMA, mild to mod MR, mod to severe TR, RV pressure elevated with dilated IVC consistent with vL overload, large left pleural effusion. PLAN: Acute on chronic HFpEF: -Patient remains markedly volume overloaded, tolerating IV diuresis-- Continue Lasix to 40 mg TID -Monitor renal function and electrolytes, potassium goal of 4.0 and mag goal of 2.0, replace as necessary, increase KCl to 20 mEq 3 times daily -Large left pleural effusion noted on echo, CXR ordered-- may need to consider pulmonary consult for potential thoracentesis. -Not on spironolactone due to difficulties with hyperkalemia as outpatient -Jardiance currently on hold to allow for aggressive diuresis. -Strict I's and O's, 2 g sodium restriction, 1500 cc fluid restriction, CHF education, daily standing weights. Acute hypoxic respiratory failure: -Supportive measures per primary service. Diuresis will help oxygenation levels. Wean O2 as able. -CPAP during sleep time hours encouraged Bilateral lower extremity cellulitis: -Diuresis will help improve edema, antibiotics per primary service. -Blood cultures and wound cultures pending. Permanent atrial fibrillation: -Known permanent atrial fibrillation with elevated [id number] however high bleeding risk with history of lower GI bleed. Not currently on anticoagulation. Only aspirin. Case discussed with Dr. Mistry. Will follow. I spent a total of 40 minutes on the date of service in preparation, delivery, and documentation of the care provided to the patient excluding any time spent in the performance of separately billed services. KM Mello Department of Cardiology, [facility] This chart was completed in part utilizing Speech Voice Recognition Software. Grammatical errors, random word insertions, pronoun errors, and incomplete sentences are an occasional consequence of this system due to software dee itations, ambient noise, and hardware issues. Any formal questions or concerns about the content, text, or information contained within the body of this dictation should be directly addressed to the provider for clarification. Admission and Anticipated Discharge Date Admission Date: April 15, 2023 Supervising Physician Co-Signing Physician Notes Attending attestation: I have reviewed the advanced practitioner's documentation, and agree with, and take responsibility for the plan of care. Subjective: Pt comfortable , lying supine. Rodney catheter in place draining clear yellow urine. Exam: 3-4+ LE pitting edema Data: EKG performed 04/14/23 and interpreted independently: AF at 96 bp, no significant repolarization changes. Impression/ Plan: Acute on chronic heart failure with preserved ejection fraction, right heart worse than left heart failure, large right and moderate left pleural effusion Persistent AF -Continue furosemide 40 mg IV TID, KCL 20 meq 20 PO TID I spent a total of 20 minutes coordinating, documenting, and providing care for this patient excluding time spent in the performance of separately billed services or time spent by another provider. Barrington Mistry, DO Subjective 87-year-old male admitted to [facility] emergency department secondary to acute on chronic diastolic CHF. Patient was markedly volume loaded for loaded and up at minimum 20 pounds from baseline. 04/15/2023: Anasarca noted on exam. Rodney catheter placed. IV diuresis initiated with Lasix 40 mg twice daily Lower extremity cellulitis--treated with IV antibiotics per primary team Echocardiogram: preserved LVEF 55-60%, no WMA, mild to mod MR, mod to severe TR, RV pressure elevated with dilated IVC consistent with vL overload, large left pleural effusion. 04/16/2023: Patient remained markedly hypervolemic. Lasix increased to 40 mg 3 times daily plus potassium supplementation. Large pleural effusion noted on echo, chest x-ray obtained showing a large right and moderate left pleural effusion with pulmonary edema. 04/17/2023: Upon entrance into the room paient asleep in bed. Woke easily. Remains markedly volume overloaded with fluid extending up to the abdomen. Legs red and swollen-- wrapped, appears to have drainage on the dressing. Ongoing orthopnea, but improved-- wearing supplemental o2. No chest pain or palpitations. Telemetry: AFIB with PVCs 90sch. I&O: -6 L (total), -1.8L (last 24 hrs) Weight: 100.9 kg >>100.5 kg >>97.2 kg Labs: Stable sCr, K 3.8 Review of Systems Review of Systems: All systems reviewed & are unremarkable except as noted in HPI & below Physical Exam Constitutional: + ill appearing; no acute distress Neck: normal visual inspection and trachea midline Respiratory: normal respiratory effort and + cough Auscultation: + rales; no rhonchi and no wheezes Cardiovascular: Rate/Rhythm: regular rate and + irregularly irregular Heart Sounds: normal S1, normal S2 and + murmur (+2/6 systolic murmur) Vessels: + JVD Extremities: + pedal edema (right heel ulceration) and + edema (+4 BLLE pitting edema to abdomen/scrotum) Gastrointestinal (Abdomen): Inspection/Auscultation: + abdomen distended and + abdominal edema Percussion/Palpation: abdomen soft Skin: + wound (right heel ulceration) Psychiatric: Orientation: alert and oriented x 3 (garbled speech) Genitourinary: + scrotum abnormality (swollen ) Results & Data Vital Signs (Past 12 Hours) Vital Signs Temp Pulse Resp BP Pulse Ox O2 Del Method O2 Flow Rate 04/17/23 02:24 36.8 C 101 H 20 136/86 97 Nasal Cannula 1.5 04/16/23 23:00 36.7 C 99 H 20 121/78 99 Nasal Cannula 1.5 04/16/23 20:30 Nasal Cannula 1.5 04/16/23 19:00 36.5 C 87 16 126/73 99 Nasal Cannula 1.5
[2023-04-17 07:33] LABS: Hematocrit (blood only) 51.9 % (42.0-52.0); Hemoglobin 15.5 g/dl (14.0-18.0); Mean Corpuscular Hgb Conc 29.9 g/dL (32.0-36.0); Mean Corpuscular Volume 93.7 fL (80.0-100.0); Mean Platelet Volume 9.8 fL (9.4-12.4); Platelet Count 145 K/uL (130-400); RDW Coefficient of Variation 15.7 % (11.5-14.5); RDW Standard Deviation 53.7 fL (36.4-46.3); Red Blood Count 5.54 M/uL (4.70-6.10); White Blood Count 6.99 K/ul (4.8-10.8)
[2023-04-17 08:11] LABS: BUN Creatinine Ratio 41.8 (10-20); Calcium 9.2 mg/dl (8.6-10.3); Creatinine Clr Calc Pharmacy 87.6 ml/min; Est GFR (African American) 99.4 ml/min; Est GFR (Non-African American) 85.8 ml/min; Magnesium 2.2 mg/dl (1.7-2.4); Phosphorus 3.5 mg/dl (2.5-4.9); Potassium 3.8 mmol/L (3.5-5.1)
[2023-04-17] MEDS: POTASSIUM CHLORIDE CRTAB 20 MEQ TABCR PO SCH (12:13)
--- NOTE | 2023-04-17 13:23 | Hospitalist Progress Note ---
Date of Service April 17, 2023 Assessment & Plan (1) Acute on chronic diastolic HF (heart failure): Plan 87-year-old male with PMH chronic diastolic heart failure [2022 TTE with EF of 50 to 54%], A-fib not on anticoagulation 2/2 LGIB, SORAYA on CPAP, pulmonary HTN, PVD status post surgery, Gilbert's syndrome, DVT, chronic lymphedema/stasis dermatitis, prediabetes, melanoma, BPH, past tobacco abuse came in with 1 week history of worsening BLE swelling extending to abdomen and scrotum. Patient denies chest pain or cough. Reports increased shortness of breath on exertion. Patient reports being compliant with home medications and CPAP. 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 He is being managed for the following: Hypoxia Anasarca:BLE swelling extending up to the scrotum and abdomen at presentation Acute on chronic HFpEF O2 saturation was noted to be in 80s upon arrival to the ED. Improved with 2 to 3 L oxygen. Likely secondary to acute on chronic heart failure. Admitting CTAP with prostatomegaly, anasarca. Admitting CTA chest with no PE, with moderate bilateral pleural effusion. Admitting respiratory viral panel negative. CXR with volume overload. Patient getting diuresis with IV Lasix, cardiology managing. KCL being replaced. Monitor renal function, monitor and replete electrolytes. 2022 TTE with EF of 50 to 54%. 04/16/2023 echo with EF of 55 to 60%, right atrium is severely dilated. Strict I's and O's, low-sodium diet, fluid restriction, echo. Telemetry monitoring. Cardiology on board, appreciate recommendation. Wean down oxygen as tolerated, CPAP at bedtime as at home BLE cellulitis BLE swelling associated with blister: Likely secondary to CHF, complicated by cellulitis/chronic lymphedema and stasis dermatitis/new onset bullous & blistering pathology Sepsis POA: Secondary to above. Heart rate and respiratory rate elevated at presentation. Lactate WNL. Admitting BLE venous Doppler: Negative for DVT. Doxycycline started for BLE cellulitis 04/15, continue Wound care nurse Dermatology consult re: bullous/blistering lesions lower extremities, appreciate recommendation. Follow admitting blood and wound culture. NG so far. Concern of aspiration: Per history given by patient. Speech evaluating, will follow. Hematuria, scrotal edema, prostatomegaly: Hematuria likely secondary to complicated Rodney placement in the ED. Patient also has prostatomegaly. Urology evaluated, appreciate recs. Follow-up with urology upon discharge. Dysarthria: Noted at admission, deemed to be chronic per family member but no clear cause of dysarthria as per outpatient record review. MRI brain 04/16 w/ no acute finding. Other chronic medical conditions: Continue with/resume home meds as and when able SORAYA, compliant with CPAP Permanent A-fib/history DVT not on anticoagulation secondary to LGIB, rate slightly elevated PVD status post surgery prediabetes, hemoglobin A1c of 6.22 December 2022 hx melanoma (epigastrium) status post surgery past tobacco abuse DVT prophylaxis. Lovenox subcu Full code Admission and Anticipated Discharge Date Admission Date: April 15, 2023 Subjective Patient was seen and examined at bedside. Patient was lying in bed, on 2 L oxygen via nasal cannula, resting comfortably, dysarthric - appears mostly when he uses his dentures, hard of hearing. Patient reports feeling better, denies pain. Rodney catheter with pink/red urine collection noted. Per RN, pt eating better moving bowels ok. Physical Exam Physical Exam: GENERAL: Alert and awake. NAD, on 2L O2 via NC. Appears chronically ill/weak /frail. [place] HEENT: No pallor, no icterus. Pupils equal, round and reactive to light. Oral mucosa moist. NECK: No JVD, no neck masses. HEART: S1 and S2 heard. irregular rate and rhythm. Tachycardia. No murmur, no gallop. RESPIRATORY SYSTEM: Normal AP diameter. No accessory muscle use. No wheezing, no crackles. decreased bb breath sounds. ABDOMEN: Soft, bowel sounds present, nontender, no distention. lower abd wall edema present. CENTRAL NERVOUS SYSTEM: No facial droop. dysarthria +. Obeys simple commands. Moves extremities. EXTREMITIES: No edema, no erythema seen. : swollen scrotum and testes; nontender non erythematous. Rodney catheter w/ blood stains around insertion and bloody urine in the bag. BLE swelling with overlying 2+ pitting edema , improving erythema, clean dressing w/o soakage. Results & Data Results & Data Vital Signs (Past 12 Hours) Vital Signs Temp Pulse Resp BP Pulse Ox O2 Del Method O2 Flow Rate 04/17/23 11:46 36.8 C 82 20 125/76 95 Nasal Cannula 2.0 04/17/23 08:13 36.8 C 94 H 19 142/71 H 94 Nasal Cannula 2.0 04/17/23 02:24 36.8 C 101 H 20 136/86 97 Nasal Cannula 1.5
[2023-04-18 09:19] LABS: Hematocrit (blood only) 58.5 % (42.0-52.0); Hemoglobin 16.9 g/dl (14.0-18.0); Mean Corpuscular Hemoglobin 27.8 pg (25.0-34.0); Mean Corpuscular Hgb Conc 28.9 g/dL (32.0-36.0); Mean Corpuscular Volume 96.4 fL (80.0-100.0); Mean Platelet Volume 9.7 fL (9.4-12.4); Platelet Count 128 K/uL (130-400); RDW Coefficient of Variation 16.6 % (11.5-14.5); RDW Standard Deviation 55.1 fL (36.4-46.3); Red Blood Count 6.07 M/uL (4.70-6.10); White Blood Count 6.38 K/ul (4.8-10.8)
[2023-04-18 09:26] LABS: BUN Creatinine Ratio 44.4 (10-20); Calcium 9.8 mg/dl (8.6-10.3); Creatinine Clr Calc Pharmacy 81.5 ml/min; Est GFR (African American) 96.5 ml/min; Est GFR (Non-African American) 83.3 ml/min; Magnesium 2.2 mg/dl (1.7-2.4); Potassium 4.3 mmol/L (3.5-5.1)
--- NOTE | 2023-04-18 10:36 | Cardiology Progress Note ---
Date of Service April 18, 2023 Assessment & Plan (1) Acute hypoxemic respiratory failure: (2) Acute on chronic diastolic HF (heart failure): (3) Pleural effusion: (4) Bilateral cellulitis of lower leg: (5) Permanent atrial fibrillation: Plan IMPRESSION: 87 year old male presented to [facility] emergency department with acute hypoxic respiratory failure secondary to acute on chronic diastolic CHF Patient markedly volume overloaded--at minimum up 20 pounds from baseline. Echocardiogram: preserved LVEF 55-60%, no WMA, mild to mod MR, mod to severe TR, RV pressure elevated with dilated IVC consistent with vL overload, large left pleural effusion. PLAN: CHf- Discontinue furosemide 40 mg IV 3 times daily and start furosemide infusion at 10 mg/h. Monitor bicarbonate levels which have been increasing. Patient not able to provide any subjective input today. Mental status has apparently been the same since hospital stay. MRI brain previously performed due to concerns of mental status and 04/16/2023 without acute abnormality. Continue to supplement electrolytes. Repeat BMP in am. AF- continue metoprolol succinate for rate control. Not on anticoagulation as outpatient due to bleeding concerns. Cellulitis- Continue oral doxycycline. Case discussed with Dr Pedraza for the purpose of coordination of care. Yumiko Mistry DO This chart was completed in part utilizing Speech Voice Recognition Software. Grammatical errors, random word insertions, pronoun errors, and incomplete sentences are an occasional consequence of this system due to software limitations, ambient noise, and hardware issues. Any formal questions or con cerns about the content, text, or information contained within the body of this dictation should be directly addressed to the provider for clarification. Admission and Anticipated Discharge Date Admission Date: April 15, 2023 Subjective Patient seen in cardiology follow-up of volume overload, right greater than left heart failure. Patient with worsening oxygen requirement, now requiring 5 L nasal cannula. Chest x-ray performed this morning revealing worsening bilateral pleural effusions by portable film. Telemetry reveals atrial fibrillation with ventricular rate ranging from 70 to 100 bpm with occasional PVCs. Review of Systems Review of Systems: Unobtainable due to cognitive status Physical Exam Constitutional: + ill appearing; no acute distress Neck: normal visual inspection and trachea midline Respiratory: normal respiratory effort and + cough Auscultation: + rales; no rhonchi and no wheezes Cardiovascular: Rate/Rhythm: regular rate and + irregularly irregular Heart Sounds: normal S1, normal S2 and + murmur (+2/6 systolic murmur) Vessels: + JVD Extremities: + pedal edema (right heel ulceration) and + edema (+4 BLLE pitting edema to abdomen/scrotum) Gastrointestinal (Abdomen): Inspection/Auscultation: + abdomen distended and + abdominal edema Percussion/Palpation: abdomen soft Skin: + wound (right heel ulceration) Psychiatric: Orientation: alert and oriented x 3 (garbled speech) Genitourinary: + scrotum abnormality (swollen ) Results & Data Vital Signs (Past 12 Hours) Vital Signs Temp Pulse Pulse Resp BP Pulse Ox O2 Del Method 04/18/23 07:25 83 04/18/23 07:22 36.6 C 102 H 22 131/84 96 Nasal Cannula 04/18/23 04:16 36.5 C 106 H 18 143/80 H 98 Nasal Cannula 04/17/23 23:00 36.6 C 98 H 16 126/83 97 Nasal Cannula O2 Flow Rate 04/18/23 07:25 04/18/23 07:22 5.0 04/18/23 04:16 4 04/17/23 23:00 2 Diagnostic Findings CBC 04/18/23 Range/Units 07:36 WBC 6.38 (4.8-10.8) K/ul RBC 6.07 (4.70-6.10) M/uL Hgb 16.9 (14.0-18.0) g/dl Hct 58.5 H (42.0-52.0) % Plt Count 128 L (130-400) K/uL Comprehensive Metabolic Panel 04/18/23 Range/Units 07:36 Sodium 142 (136-145) mmol/L Potassium 4.3 (3.5-5.1) mmol/L Chloride 99 (98-107) mmol/L Carbon Dioxide 41 H* (21-32) mmol/L BUN 32 H (6-23) mg/dl Creatinine 0.72 (0.6-1.4) mg/dl Glucose 94 (70-99(Fasting)) mg/dl Calcium 9.8 (8.6-10.3) mg/dl Intake and Output 04/17/23 04/18/23 04/18/23 22:59 06:59 14:59 Intake Total 850 / 1100 250 / 1100 Output Total 1400 / 1901 501 / 1901 800 / 800 Balance -550 / -801 -251 / -801 -800 / -800 Intake: Oral 850 / 1100 250 / 1100 Output: Urine Amount (Catheter) 1400 / 1900 500 / 1900 800 / 800 Rodney/Indwelling 1400 / 1900 500 / 1900 800 / 800 # Bowel Movements Other: Other Intake Source 1500 Fluid Restriction Weight 97.1 kg Weight Measurement Method Built in [facility]
[2023-04-18 11:07] LABS: Allen Test Pos (Pos); Base Excess ABG 13.9 mEq/L (-9-1.8); HCO3 ABG 43 mmol/L (19-24); Oxygen Saturation ABG 99.2 % (90-95); PCO2 ABG 75 mmHg (35-46); PO2 ABG 120 mmHg (80-95); pH ABG 7.37 (7.35-7.45)
--- NOTE | 2023-04-18 11:21 | XRay Report ---
XR chest 1V portable CLINICAL HISTORY: increase sob TECHNIQUE: Single frontal radiograph of the chest was obtained. Comparison: Comparison is made to chest radiograph 04/16/2023 FINDINGS: No lines and tubes are seen. Cardiomegaly is noted. The aortic arch is calcified. Bilateral lower bonny g predominant airspace opacities are seen. Prominence of the pulmonary vasculature. Moderate bilatera l pleural effusions. IMPRESSION: 1. Moderate bilateral pleural effusions with underlying atelectasis. Findings are worsened from prio r exam. Superimposed pneumonia cannot be excluded. 2. Cardiomegaly and mild pulmonary edema. ACT 112: Negative or not required by law. Electronically signed by: Chuck Lay M.D. 04/18/2023 11:19 AM
--- NOTE | 2023-04-18 18:36 | Hospitalist Progress Note ---
Date of Service April 18, 2023 Assessment & Plan (1) Acute on chronic diastolic HF (heart failure): Plan 87-year-old male with PMH chronic diastolic heart failure [2022 TTE with EF of 50 to 54%], A-fib not on anticoagulation 2/2 LGIB, SORAYA on CPAP, pulmonary HTN, PVD status post surgery, Gilbert's syndrome, DVT, chronic lymphedema/stasis dermatitis, prediabetes, melanoma, BPH, past tobacco abuse came in with 1 week history of worsening BLE swelling extending to abdomen and scrotum. Patient denies chest pain or cough. Reports increased shortness of breath on exertion. Patient reports being compliant with home medications and CPAP. 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 He denied fevers at presentation. He is being managed for the following: Hypoxia Anasarca:BLE swelling extending up to the scrotum and abdomen at presentation Acute on chronic HFpEF O2 saturation was noted to be in 80s upon arrival to the ED. Improved with 2 to 3 L oxygen. Likely secondary to acute on chronic heart failure. Admitting CTAP with prostatomegaly, anasarca. Admitting CTA chest with no PE, with moderate bilateral pleural effusion. Admitting respiratory viral panel negative. CXR with volume overload. Patient getting diuresis with IV Lasix drip today, cardiology managing. KCL being replaced. Monitor renal function, monitor and replete electrolytes. 2022 TTE with EF of 50 to 54%. 04/16/2023 echo with EF of 55 to 60%, right atrium is severely dilated. Strict I's and O's, low-sodium diet, fluid restriction, echo. Telemetry monitoring. Cardiology on board, appreciate recommendation. Wean down oxygen as tolerated, CPAP at bedtime as at home BLE cellulitis BLE swelling associated with blister: Likely secondary to CHF, complicated by cellulitis/chronic lymphedema and stasis dermatitis/new onset bullous & blistering pathology Sepsis POA: Secondary to above. Heart rate and respiratory rate elevated at presentation. Lactate WNL. Admitting BLE venous Doppler: Negative for DVT. Doxycycline started for BLE cellulitis 04/15, continue Wound care nurse Dermatology consult re: bullous/blistering lesions lower extremities, appreciate recommendation. Follow admitting blood and wound culture. NG so far. Concern of aspiration: Per history given by patient. Speech evaluating, will follow. Hematuria, scrotal edema, prostatomegaly: Hematuria likely secondary to complicated Rodney placement in the ED. Patient also has prostatomegaly. Urology evaluated, appreciate recs. Follow-up with urology upon discharge. Dysarthria: Noted at admission, deemed to be chronic per family member but no clear cause of dysarthria as per outpatient record review. MRI brain 04/16 w/ no acute finding. Other chronic medical conditions: Continue with/resume home meds as and when able SORAYA, compliant with CPAP Permanent A-fib/history DVT not on anticoagulation secondary to LGIB, rate slightly elevated PVD status post surgery prediabetes, hemoglobin A1c of 6.22 December 2022 hx melanoma (epigastrium) status post surgery past tobacco abuse DVT prophylaxis. Lovenox subcu Full code Admission and Anticipated Discharge Date Admission Date: April 15, 2023 Subjective Patient was seen and examined at bedside. Patient was lying in bed, on 5L oxygen via nasal cannula, slightly in distress. Patient doesn't report feeling as much better as yesterday. Pt's son updated on his current condition over the phone. Rodney catheter with pink/red urine collection noted. Pt appears more volume overloaded on exam today, d/w cardio, started on lasix drip. F/u RN, pt making urine better. Physical Exam Physical Exam: GENERAL: Alert and awake. NAD, on 5L O2 via NC. Appears chronically ill/weak/frail. [place]. HEENT: No pallor, no icterus. Pupils equal, round and reactive to light. Oral mucosa moist. NECK: No JVD, no neck masses. HEART: S1 and S2 heard. irregular rate and rhythm. Tachycardia. No murmur, no gallop. RESPIRATORY SYSTEM: Normal AP diameter. No accessory muscle use. No wheezing, bl crackles. ABDOMEN: Soft, bowel sounds present, nontender, no distention. lower abd wall edema present. CENTRAL NERVOUS SYSTEM: No facial droop. dysarthria +. Obeys simple commands. Moves extremities. EXTREMITIES: No edema, no erythema seen. : swollen scrotum and testes; nontender non erythematous. Rodney catheter w/ blood stains around insertion and bloody urine in the bag. BLE swelling with overlying 2+ pitting edema , + erythema, dressing w/ soakage at the margins. Results & Data Results & Data Vital Signs (Past 12 Hours) Vital Signs Temp Pulse Pulse Pulse Resp BP Pulse Ox 04/18/23 16:45 36.6 C 97 H 24 116/72 97 04/18/23 11:42 36.5 C 102 H 22 132/75 100 04/18/23 07:25 83 04/18/23 07:22 36.6 C 102 H 22 131/84 96 O2 Del Method O2 Flow Rate 04/18/23 16:45 Nasal Cannula 5.0 04/18/23 11:42 Nasal Cannula 5 04/18/23 07:25 04/18/23 07:22 Nasal Cannula 5.0
[2023-04-18] MEDS: FUROSEMIDE 100 MG in 0.9 % SODIUM CHLORIDE 90 ML IV SCH (20:00)
[2023-04-18] MEDS ORDERED: XOPENEX/ATROVENT 1.25mg/0.5MG NEB COMBO NEB STA (23:59)
[2023-04-19] MEDS: LEVALBUTEROL 1.25 MG/3 ML NEB NEB STA (00:18)
[2023-04-19] MEDS: DIGOXIN 250 MCG in SYRINGE 9 ML IV STA (00:42)
[2023-04-19 01:01] LABS: Base Excess ABG 11.6 mEq/L (-9-1.8); HCO3 ABG 45 mmol/L (19-24); Oxygen Saturation ABG 99.2 % (90-95); PCO2 ABG 114 mmHg (35-46); PO2 ABG 113 mmHg (80-95)
[2023-04-19] MEDS: IPRATROPIUM BROMIDE NEB SOLN 0.02% 0.5MG/2.5ML VIAL INH STA (01:19)
[2023-04-19 01:30] LABS: Allen Test Pos (Pos)
--- NOTE | 2023-04-19 01:49 | Communication Note ---
Date of Service: April 18, 202304/18, 11:50 PM Patient noted to be more somnolent as per RN. Open mouth breathing. O2 sats 80s on 6 L nasal cannula Patient tachypneic and cyanotic. ABG pH 7.2/pCO2 114/pO2 113 on 6 L Chest x-ray as per my interpretation improved congestion AP Worsening hypoxemic, hypercapnic respiratory failure Respiratory acidosis secondary to above Likely OHS, history SORAYA, patient not on CPAP inpatient CHF, improved congestion on IV Lasix infusion BiPAP Recheck ABG after 30 minutes Patient was queried regarding CPAP use at home during 04/15 admission to which he nodded and pointed to a black bag. Order for okay to use own CPAP/BiPAP placed on admission. Patient RN requested to inspect contents of black bag tonight. Toiletries and personal items found inside black bag. No CPAP machine found. Recent outpatient [facility] Sleep medicine notes from January 2023 reviewed. Sleep medicine provider messaged patient with finding of severe SORAYA on home sleep apnea test. CPAP recommended by provider. [facility] [employer] to contact patient to schedule set up as per note. No documentation of patient response to above note. Patient's son unaware of sleep apnea or CPAP machine use at home when given update on patient condition over the phone. Patient's son stated that patient may have misheard question regarding CPAP due to hearing impairment. Patient untreated SORAYA likely reason for CHF. Pulmonary consult in a.m. Re: Respiratory failure, history SORAYA requiring home CPAP
[2023-04-19 02:23] LABS: Appearance Urine Cloudy (Clear); Bilirubin Urine 2+ (Negative); Blood Urine 3+ (Negative); Color Urine Brown; Glucose Urine UA Trace (Negative); Ketones Urine Trace (Negative); Leukocyte Esterase Urine Negative (Negative); Nitrite Urine Negative (Negative); Protein Urine 3+ (Negative); Specific Gravity Urine >= 1.030 (1.000-1.030); Urobilinogen Urine Negative (Negative)
[2023-04-19 02:27] LABS: Epithelial Cell Urine 0-5 /lpf (0-5); RBC Urine >30 /hpf (0-4); WBC Urine >30 /hpf (0-5)
[2023-04-19 02:28] LABS: Bacteria Urine Negative (Negative)
[2023-04-19 02:37] LABS: Base Excess ABG 14.9 mEq/L (-9-1.8); HCO3 ABG 45 mmol/L (19-24); Oxygen Saturation ABG 93.5 % (90-95); PCO2 ABG 83 mmHg (35-46); PO2 ABG 60 mmHg (80-95); pH ABG 7.34 (7.35-7.45)
[2023-04-19] MEDS: DIGOXIN 250 MCG in SYRINGE 9 ML IV ONE (02:39)
[2023-04-19 02:41] LABS: Allen Test Pos (Pos)
[2023-04-19] MEDS ORDERED: GLUCOSE 10 TAB/TUBE PO PRN (05:50)
[2023-04-19] MEDS ORDERED: GLUCOSE 40% GEL 15 GM TUBE PO PRN (05:50)
[2023-04-19] MEDS ORDERED: DEXTROSE 50% 50 ML SYRINGE IV PRN (05:50)
[2023-04-19] MEDS ORDERED: CARBOHYDRATES FOR HYPOGLYCEMIA PO PRN (05:50)
[2023-04-19] MEDS ORDERED: GLUCAGON FOR INJ 1 MG VIAL SQ PRN (05:50)
[2023-04-19 07:05] LABS: Hematocrit (blood only) 54.6 % (42.0-52.0); Hemoglobin 15.7 g/dl (14.0-18.0); Mean Corpuscular Hemoglobin 27.9 pg (25.0-34.0); Mean Corpuscular Hgb Conc 28.8 g/dL (32.0-36.0); Mean Corpuscular Volume 97.2 fL (80.0-100.0); Mean Platelet Volume 9.8 fL (9.4-12.4); Platelet Count 133 K/uL (130-400); RDW Coefficient of Variation 15.3 % (11.5-14.5); RDW Standard Deviation 55.4 fL (36.4-46.3); Red Blood Count 5.62 M/uL (4.70-6.10); White Blood Count 10.26 K/ul (4.8-10.8)
--- NOTE | 2023-04-19 07:50 | XRay Report ---
XR chest 1V portable HISTORY: Hypoxia. COMPARISON: Chest 04/18/2023. FINDINGS: No pneumothorax. Moderate right and small left pleural effusions. The left pleural effusion has improved. The heart is enlarged. There are calcifications within the aortic knob. Mild pulmonary vascular congestion has slightly improved. Bibasilar densities persist. There are degenerative reynolds es within the shoulders. Calcifications within the aortic knob. IMPRESSION: 1. Cardiomegaly and pulmonary vascular congestion has slightly improved. 2. Bilateral pleural effusions again noted. This has improved on the left. 3. Bibasilar densities persist. ACT 112: Negative or not required by law. Electronically signed by: Sivakumar Lara M.D. 04/19/2023 7:49 AM
[2023-04-19 07:59] LABS: BUN Creatinine Ratio 43.2 (10-20); Calcium 9.8 mg/dl (8.6-10.3); Creatinine Clr Calc Pharmacy 60.8 ml/min; Est GFR (African American) 82.5 ml/min; Est GFR (Non-African American) 71.2 ml/min; Magnesium 2.1 mg/dl (1.7-2.4); Phosphorus 3.5 mg/dl (2.5-4.9); Potassium 4.3 mmol/L (3.5-5.1)
--- NOTE | 2023-04-19 08:11 | Pulmonary Consultation ---
Date of Consultation April 19, 2023 Assessment & Plan (1) Acute respiratory failure with hypoxia and hypercarbia: (2) Pleural effusion: (3) Severe tricuspid regurgitation: (4) Moderate mitral regurgitation: (5) Pulmonary hypertension: (6) CHF (congestive heart failure): Heart failure chronicity: acute on chronic Heart failure type: unspecified Qualified Code(s): I50.9 - Heart failure, unspecified (7) Permanent atrial fibrillation: Plan IMPRESSION: 87-year-old male with acute respiratory failure with hypoxia and hypercapnia currently requiring aggressive BiPAP settings in the setting of bilateral pleural effusion and CHF with severe valvulopathy. RECOMMENDATIONS: 1. Acute respiratory failure with hypoxia and hypercapnia - Upon presentation, the patient was noted to be hypoxic which is reasonable in the setting of degree of heart failure with associated pleural effusions. Unfortunately, the patient's condition declined and now he has a worsening degree of hypercapnia. This is likely related to decreased ventilatory function with significant RIGHT- sided effusion present. Unfortunately, with the patient's significant volume overload which is likely related to his severe valvulopathy, particularly severe tricuspid regurgitation and moderate mitral regurgitation, this may make recurrence of the effusion much more likely. Given his state of hypoxia and decreased ventilatory function, it makes sense to attempt thoracentesis of the RIGHT-sided effusion to see if this helps aid in oxygenation and ventilation. Did have an extensive discussion with the patient's son, Perry Fraser describing the procedure. After "research" he is agreeable to thoracentesis procedure. We did broach the subject of goals of care moving forward, particul ernesto in the setting of a patient with severe structural heart disease with respiratory failure and risk for need for intubation and mechanical ventilation. He is uncertain of this decision at this point. Would make sense for conversation with palliative care moving forward with discussion of goals of care. There is is an additional brother by the name of Dm Fraser ([phone]) whom I will reach out to his well to provide update. That being said, at this point it would make more sense to proceed with thoracentesis to remove volume and analyze fluid to see if this aids in ventilatory function. If thoracentesis does not help symptoms, would be concerning moving forward as the patient would not likely have a great outcome with intubation and mechanical ventilation. Reiterated this to the son. We will readdress CODE STATUS moving forward. 2. Pleural effusion - Reviewed imaging and perform bedside ultrasound. RIGHT greater than left effusion. Likely secondary to CHF with valvulopathy. Thoracentesis to be performed. Will hold Lovenox for now. Patient not anticoagulated for his Eliquis in the setting of upper GI bleeding history. 3. Valvulopathy - Patient with severe tricuspid regurgitation and moderate mitral regurgitation likely making recurrence of effusion and ongoing respiratory failure high probability. Will defer to cardiology for ongoing management of the patient's volume status. This makes sense given the patient's anasarca presentation and bilateral lower extremity edema with serous bullae lesions secondary to likely volume status. 4. Pulmonary hypertension - Secondary to numbers 2 and 3. Agree with volume offloading as tolerated. 5. CHF - Defer to cardiology for ongoing management. 6. Permanent A-fib - Not anticoagulated secondary to history of GI bleeding. Again, continue with cardiology management. 7. Would strongly advocate for engagement of palliative care in this patient given above-mentioned comorbidities and decline in status. This was discussed with the patient's son. Will reach out to his additional son Dm as well. Thank you for allowing us to participate in the care of this patient. We will continue to follow along during hospitalization. Supervising Physician Co-Signing Physician Notes Patient seen and examined. EMR reviewed. Discussed with critical care SUSAN and agree with assessment plan as noted. The patient appears to have multiorgan system dysfunction. Bilateral effusions are noted. Hypercarbic respiratory failure appears improved with application of noninvasive positive pressure ventilation. Will perform diagnostic/therapeutic thoracentesis to see if this offers him a clinical benefit. Would recommend palliative care consultation and define goals of care for this patient. History of Present Illness Reason for Consultation: ohs, resp failure Requesting Physician: Dr. Brandt Attending Physician: Eliseo Pedraza MD History of Present Illness Patient is an 87-year-old male with a significant past medical history of chronic diastolic heart failure with ejection fraction of 50 to 54%, A-fib not anticoagulated secondary to GI bleeding, valvular heart disease, obstructive sleep apnea on CPAP, pulmonary hypertension, peripheral vascular disease, Gilbert syndrome, history of DVT, chronic lymphedema/stasis dermatitis, prediabetes, melanoma, BPH, prior history of tobacco abuse. The patient was admitted to this institution on 04/14 with progressive dyspnea and found to be volume overloaded. Throughout his stay, the patient had been diuresed secondary to severe volume overload. Echocardiogram was performed which demonstrated a maintained ejection fraction with moderate to severe tricuspid regurgitation and elevated RIGHT-sided ventricular systolic pressures of 40 to 50 mmHg. Patient was noted to have bilateral pleural effusions RIGHT greater than left. Patient has required supplemental oxygen throughout his stay. Unfortunately, overnight, the patient had decline in mental status. Blood gas was concerning for primary respiratory acidosis with hypercarbia. He was placed on aggressive BiPAP settings. Pulmonary medicine was consulted. Repeat blood gas this morning shows improvement in CO2. Patient is slightly more awake per nursing evaluation this morning. Unfortunately, he is still requiring 100% FiO2 and aggressive BiPAP settings. Upon evaluation in room 216, the patient is wakeful, but unable to provide any historical information. He shakes his head no when asked about pain. He is unable to contribute to HPI otherwise. Information obtained from conversation with nursing staff and review of current records. Allergies Allergy/AdvReac Type Severity Reaction Status Date / Time adhesive tape Allergy Unknown skin Verified 04/15/23 02:10 irritation nutmeg oil (Myristica seed Allergy Unknown Unknown Verified 04/15/23 02:10 oil) lisinopril AdvReac Unknown cough Verified 12/24/14 06:28 UNKNOWN BP MEDICATION Allergy Unknown rash at Uncoded 03/18/14 11:52 ankles Home Medications Medication Instructions Recorded Confirmed Type aspirin 81 mg tablet,delayed 81 mg PO DAILY 04/15/23 04/15/23 History release atorvastatin 20 mg tablet 20 mg PO QAM 04/15/23 04/15/23 History empagliflozin 25 mg tablet 25 mg PO QAM 04/15/23 04/15/23 History (Jardiance) furosemide 20 mg tablet 40 mg PO QAM 04/15/23 04/15/23 History metoprolol succinate 25 mg 25 mg PO QAM 04/15/23 04/15/23 History tablet,extended release 24 hr silver sulfadiazine 1 % topical 1 applic topical DAILY 04/15/23 04/15/23 History cream (SSD) tamsulosin 0.4 mg capsule 0.4 mg PO QAM 04/15/23 04/15/23 History Patient History Medical History Lymphedema Atrial fibrillation CHF (congestive heart failure) Hypertension Social History Smoking Status: Former smoker Second Hand Exposure: No; Do You Dip or Chew Tobacco: No; Tobacco Cessation Education Requested by Patient: No Hx Alcohol Use: No Hx Substance Use: No Preferred Language: Polish Communication Ability: Effective Local Delivery Driver Required: Yes Beliefs That Will Affect Care: None Current Living Situation: Alone Feels Safe at Home: Yes Safety Concerns: Feels Safe At This Time Assistive Devices: Hearing Aid - Bilateral and Walker Review of Systems Review of Systems: A complete 10 point review of systems was reviewed with the patient with per tinent positives and negatives as per history of present illness. All else were negative. Physical Exam Physical Exam: VITAL SIGNS - Vital signs and nursing notes were reviewed. GENERAL - 87-year-old male appearing his stated age who is in moderate distress. SKIN -sloughing of the skin to the anterior aspects of the bilateral lower extremities overlying the shins. Diffuse edematous changes noted from the chest to the feet. NOSE - Midline and without cyanosis. MOUTH/OROPHARYNX - Without perioral cyanosis. NECK - Neck with FROM. LUNGS - Chest wall evaluation demonstrates a kyphotic chest wall A:P diameter. Auscultation reveals decreased breath sounds at the bilateral bases, RIGHT greater than left. No wheezes. Rales noted. CARDIAC - RRR with S1/S2. No murmur, rubs, or gallops appreciated. ABDOMEN - Abdominal inspection demonstrates an edematous abdomen. No TTP. EXTREMITIES - No peripheral cyanosis. Significant pretibial edema present extending to the feet. +3/5 radial palpated throughout. PSYCH - Awake, but can only nod yes/no. Unable to contribute to medical decision making meaningfully. Results & Data Results & Data Vital Signs (Past 12 Hours) Vital Signs Temp Pulse Pulse Pulse Pulse Resp BP 04/19/23 07:20 37.8 C H 101 H 28 H 107/56 L 04/19/23 05:00 90 22 147/71 H 04/19/23 03:14 37.0 C 93 H 22 97/60 L 04/19/23 01:23 111 H 23 04/19/23 01:20 111 H 23 04/19/23 00:45 04/19/23 00:07 110 H 34 H 04/18/23 23:30 36.6 C 120 H 24 108/68 04/18/23 23:13 36.7 C 112 H 24 108/68 04/18/23 22:00 109 H Pulse Ox O2 Del Method O2 Flow Rate FiO2 04/19/23 07:20 92 BiPAP 100 04/19/23 05:00 97 BiPAP 30 04/19/23 03:14 95 BiPAP 04/19/23 01:23 95 BiPAP 60 04/19/23 01:20 95 90 04/19/23 00:45 90 04/19/23 00:07 93 90 04/18/23 23:30 89 L Oxymask 15 04/18/23 23:13 88 L Nasal Cannula 6 04/18/23 22:00 PG Care Time/CCT Total # of Minutes Spent Total Time Spent with Patient: Total time spent is greater than 50% in coordination of care (as documented) at patient's floor/unit and/or counseling patient: Coding Level of Care Code 21926 INT INP/OBS CARE 3/75MIN Diagnoses Acute respiratory failure with hypoxia and hypercarbia J96.01; J96.02 Pleural effusion J90 Severe tricuspid regurgitation I07.1 Moderate mitral regurgitation I34.0 Pulmonary hypertension I27.20 CHF (congestive heart failure) I50.9 Heart failure chronicity: acute on chronic Heart failure type: unspecified Permanent atrial fibrillation I48.21
[2023-04-19 08:24] LABS: iSTAT Arterial Blood Gas HCO3 39 meg/L (19-24); iSTAT Arterial Blood Gas pCO2 63 mmHg (35-46); iSTAT Arterial Blood Gas pO2 52 mmHg (80-95); iSTAT Carbon Dioxide > 40 mmol/L (24-31); iSTAT Hematocrit 51 % (42-52); iSTAT Hemoglobin 17.3 g/dl (14.0-18.0); iSTAT Potassium 3.9 mmol/L (3.3-5.0); iSTAT Sodium 143 mmol/L (135-144)
--- NOTE | 2023-04-19 08:35 | XRay Report ---
XR chest 1V portable HISTORY: 87 years-old Male Decline in condition acute shortness of breath COMPARISON: Chest radiograph of same day at 12:23 AM TECHNIQUE: AP view of the chest FINDINGS: Cardiac silhouette is enlarged. Pulmonary vascular congestion with interstitial coarsening redemonstr ated. No pneumothorax. Right greater than left layering pleural effusions with bibasilar consolidatio n. There is mild improved aeration of the right lung. Acute minimally displaced fractures of the post erolateral right third and fourth ribs redemonstrated. Additional subacute fractures of the right pos terolateral seventh rib. IMPRESSION: 1. Cardiomegaly with unchanged pulmonary edema. 2. Right greater than left layering pleural effusions with bibasilar consolidation. 3. Mild improved aeration of the right lung. 4. Acute mildly displaced right third and fourth rib fractures without pneumothorax. Acute healing [facility] right seventh rib fracture. ACT 112: Negative or not required by law. The above report was generated using voice recognition software. It may contain grammatical, syntax o r spelling errors. Electronically signed by: Ash Alcantar M.D. 04/19/2023 8:33 AM
[2023-04-19] MEDS ORDERED: ACETAMINOPHEN 1,000 MG/100 ML VIAL IV STA (09:43)
[2023-04-19 10:06] LABS: Appearance Pleural Fluid Cloudy; Color Pleural Fluid Amber; RBC Pleural Fluid Auto 35000 /uL; Source Pleural Fluid Right Lung; WBC Pleural Fluid Auto 605 /uL
[2023-04-19 10:13] LABS: Glucose Pleural Fluid 106 mg/dl; LDH Pleural Fluid 83 U/L; Total Protein Pleural Fluid < 3.0 gm/dl
--- NOTE | 2023-04-19 10:18 | XRay Report ---
XR chest 1V portable HISTORY: Status post right-sided thoracentesis. COMPARISON: Chest 04/19/2023. FINDINGS: Interval decrease in size in a small right pleural effusion status post thoracentesis. No r ight-sided pneumothorax identified. There has been interval development of a small left apical pneumo thorax with a maximal pleural gap of 12 mm. The small left pleural effusion and bibasilar densities p ersist. The heart remains mildly enlarged. There is mild asymmetric pulmonary congestion. Calcificati ons within the aortic knob. Right-sided rib fractures again noted. IMPRESSION: 1. Interval development of a small left pneumothorax. 2. The small right pleural effusion has decreased in size status post thoracentesis. No right-sided p neumothorax identified. 3. Right-sided rib fractures again noted. 4. Bibasilar densities and pulmonary vascular congestion persists. 5. This report was communicated with Micky Mora at 10:15 AM on 04/19/2023 ACT 112: Negative or not required by law. Electronically signed by: Sivaukmar Lara M.D. 04/19/2023 10:17 AM
[2023-04-19 10:34] LABS: Eosinophils, Fluid 1 %; Lymphocytes, Fluid 16 %; Mono,Macrophage,Mesothelial 78 %; Neutrophils, Fluid 5 %
--- NOTE | 2023-04-19 11:39 | Procedure Note ---
Procedure Note Date of Service April 19, 2023 Note CODE BLUE response. Responded to overhead call for CODE KAYLA. The patient had undergone thoracentesis earlier in the day. A total of 1.5 L had been removed from the right chest. Postprocedure chest x-ray demonstrated decreasing size of the right effusion but a small apical pneumothorax on the left. I arrived to find CPR in progress. Dr. Jeter from cardiology was coordinating. Doppler pulses were auscultated with CPR. The patient was being ventilated via [id number]. I took a position at the head of the bed and intubated the patient using a 3.0 glide scope and a 7.5 endotracheal tube. There were copious bloody secretions present in the posterior pharynx and foamy secretions emanating from the glottis. These were suctioned free. The patient continued to receive bag valve ventilation with the endotracheal tube in place. Given the presence of the left-sided pneumothorax on the post procedure chest x- ray, I then elected to place an urgent needle decompression. The skin was prepped in the midclavicular line and in the third intercostal space I was able to advance the needle. A wire was passed. A dilator was advanced over the needle and an 8 [place] pigtail catheter was placed and attached to suction. The patient continued to receive CPR and ACLS medications. Please refer to code sheet for full details. Dr. Jeter then performed a focused echocardiogram which revealed essentially cardiac standstill with bubbles filling the right ventricle and minimal cardiac motion. An additional 2 rounds of CPR epinephrine and atropine were administered. Follow-up echocardiogram demonstrated essential ly no cardiac activity and the code was called at that point in time. Coding CPT Codes Resuscitation - Resuscitation: 95966 Endotracheal Intubation, emergency ([id number]) Pulmonary/Thoracic - Pulmonary and Thoracic: 21377 Tube thoracostomy ([id number]) [facility] [place] Codes (Charges) Pulmonary/Thoracic Procedure 2: Pulmonary and Thoracic: 55970 Tube thoracostomy Resuscitation Resuscitation: 79390 Endotracheal Intubation, emergency
--- NOTE | 2023-04-19 11:40 | Procedure Note ---
Procedure Note Date of Service April 19, 2023 Note Procedure: Diagnostic therapeutic ultrasound-guided catheter thoracentesis, right [employer]: Dr. Jose A Lundberg Indication: Pleural effusion Consent: Verbal consent from the patient's son Anesthesia: 8 mL's 1% lidocaine without epinephrine local. Procedure: Consent was verified and timeout performed. Appropriate imaging studies were reviewed prior to the procedure. Patient was placed in a seated position and limited thoracic ultrasound was performed of the bilateral chest. Moderate bilateral pleural effusions were noted with compressive atelectasis. The right effusion appeared slightly larger. Site appropriate for thoracentesis on the right was selected. The skin was prepped and draped in normal sterile fashion. Lidocaine was used for local analgesia. Fluid was aspirated via the finder needle. A small skin mo was made with the scalpel and the catheter over the needle apparatus was advanced over the rib into the pleural space. Using the syringe one-way valve system, a total of 1500 mL's of jh slightly bloody fluid was removed. Procedure was terminated due to patient cough. The catheter was removed and observed to be intact. A sterile dressing was applied. Post procedure chest x-ray was ordered. Postprocedural ultrasound demonstrated lung sliding to be noted with a small residual right-sided effusion Fluid was sent for cytology, cell count and differential, Gram stain and culture, LDH, pH, total protein, and glucose. The patient tolerated the procedure well without obvious complication Coding CPT Codes Pulmonary/Thoracic - Pulmonary and Thoracic: 30848 Thoracentesis w imaging ([id number]) [facility] [place] (Charges) Pulmonary/Thoracic Procedure 1: Pulmonary and Thoracic: 37776 Thoracentesis w imaging
--- NOTE | 2023-04-19 11:40 | Cardiology Progress Note ---
Date of Service April 19, 2023 Assessment & Plan (1) Acute hypoxemic respiratory failure: (2) Acute on chronic diastolic HF (heart failure): (3) Pleural effusion: (4) Bilateral cellulitis of lower leg: (5) Permanent atrial fibrillation: Plan IMPRESSION / PLAN: 87 year old male presented to [facility] emergency department with acute hypoxic respiratory failure secondary to acute on chronic diastolic CHF Patient markedly volume overloaded--at minimum up 20 pounds from baseline. Echocardiogram performed 04/16/23: preserved LVEF 55-60%, no WMA, mild to mod MR, mod to severe TR, RV pressure elevated with dilated IVC consistent with elevated right atrial pressure, large left pleural effusion. Patient with ongoing clinical decline overnight last night despite escalation of diuresis 04/19/23 with initiation of furosemide infusion. Patient seen by pulmonary medicine this morning and underwent thoracentesis. Post procedure chest x-ray revealed a small apical pneumothorax. Patient was having a repeat chest x-ray when he became unresponsive. Chest compressions in progress at the time my arrival and ACLS protocol initiated following the pulseless electrical activity algorithm. Patient received epinephrine. Endotracheal tube intubation performed by Dr. Lundberg of pulmonary medicine as well as percutaneous decompression of the left chest. Patient remained pulseless and after multiple doses of epinephrine and atropine ongoing agonal bradycardia noted on monitor with cardiac standstill on bedside echocardiogram. Resuscitative efforts terminated after failure to achieve return of circulation. Dr Pedraza updated patient's son by phone. Yumiko Mistry DO This chart was completed in part utilizing Speech Voice Recognition Software. Grammatical errors, random word insertions, pronoun errors, and incomplete sentences are an occasional consequence of this system due to software limitations, ambient noise, and hardware issues. Any formal questions or concerns about the content, text, or information contained within the body of this dictation should be directly addressed to the provider for clarification. Admission and Anticipated Discharge Date Admission Date: April 15, 2023 Subjective Pt seen having responded to "Code Blue" announcement. Pt unresponsive at my arrival with chest compressions in process. Physical Exam Constitutional: + ill appearing Neurologic: non reponsive Results & Data Vital Signs (Past 12 Hours) Vital Signs Temp Pulse Pulse Pulse Pulse Resp BP 04/19/23 08:05 88 25 H 04/19/23 07:20 37.8 C H 101 H 28 H 107/56 L 04/19/23 06:49 97 H 22 04/19/23 05:00 90 22 147/71 H 04/19/23 03:14 37.0 C 93 H 22 97/60 L 04/19/23 01:23 111 H 23 04/19/23 01:20 111 H 23 04/19/23 00:45 04/19/23 00:07 110 H 34 H Pulse Ox O2 Del Method FiO2 04/19/23 08:05 99 100 04/19/23 07:20 92 BiPAP 100 04/19/23 06:49 92 100 04/19/23 05:00 97 BiPAP 30 04/19/23 03:14 95 BiPAP 04/19/23 01:23 95 BiPAP 60 04/19/23 01:20 95 90 04/19/23 00:45 90 04/19/23 00:07 93 90 Laboratory Results Cardiac Enzymes 04/19/23 Range/Units 06:22 Lactate Dehydrogenase 166 (86-244) U/L CBC 04/19/23 Range/Units 06:22 WBC 10.26 (4.8-10.8) K/ul RBC 5.62 (4.70-6.10) M/uL Hgb 15.7 (14.0-18.0) g/dl Hct 54.6 H (42.0-52.0) % Plt Count 133 (130-400) K/uL Comprehensive Metabolic Panel 04/19/23 Range/Units 06:22 Sodium 145 (136-145) mmol/L Potassium 4.3 (3.5-5.1) mmol/L Chloride 98 (98-107) mmol/L Carbon Dioxide 41 H* (21-32) mmol/L BUN 41 H (6-23) mg/dl Creatinine 0.95 (0.6-1.4) mg/dl Glucose 94 (70-99(Fasting)) mg/dl Calcium 9.8 (8.6-10.3) mg/dl Total Protein 6.0 (6.0-8.3) gm/dl Intake and Output 04/18/23 04/19/23 04/19/23 22:59 06:59 14:59 Intake Total 200 / 274.833 74.833 / 274.833 Output Total 2100 / 3475 575 / 3475 Balance -1900 / -3200.167 -500.167 / -3200.167 Intake: IV 74.833 / 74.833 Furosemide 100 mg In 0.9 % 74.833 / 74.833 Sodium Chloride 90 ml @ 10 MG/ HR 10 mls/hr IV .Q10H [facility] Rx#: [id number] Oral 200 / 200 0 / 200 Output: Urine Amount (Catheter) 2099 575 / 3475 Rodney/Indwelling 2099 575 / 3475 Other: Weight 94 kg Weight Measurement Method Built in [facility]
--- NOTE | 2023-04-19 13:52 | Death Pronouncement Note ---
Date of Service April 19, 2023 Pronouncement Note Admission Date April 15, 2023 Date and Time of Date of : 04/19/23 Time of : 11:21 Summary refer to discharge summary for detail. BEKAH GARZA was called at 04/19/2023 a.m. He underwent multiple cycles of CPR and ACLS medications. Unfortunately there was no ROSC achieved. Patient's son was updated while BEKAH GARZA was running and after patient . Date of : 04/19/2023 Time of : 1121 hrs. in the morning. Cause of : Respiratory failure secondary to volume overload secondary to worsening acute on chronic CHF Additional Data Confirmation of : no pulse, no respirations, no heart sounds and pupils fixed and dilated Family: contacted Attending physician: Eliseo Pedraza MD Was code activated?: Yes
--- NOTE | 2023-04-19 14:12 | Discharge Summary ---
Date of Service April 19, 2023 Admission HPI Per Admitting Provider History obtained from patient, family, and records. History somewhat limited from patient secondary to hearing impairment and chronic dysarthria. 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 Last confinement 2013 for new onset A-fib. Patient discharged on Xarelto which was later discontinued due to recurrent GI bleed. 1 week history of worsening bilateral leg swelling extending to abdomen and scrotum. No chest pain, no unusual cough symptoms. Coughing with meals/water intake if not careful. Increased SOB on exertion. Patient compliant with home meds and CPAP. Not sure about weight gain at home. Worsening bilateral leg swelling with note of blisters noted 2 days ago. No fever, no chills, no previous episodes. Patient brought to the ER for evaluation. O2 sats noted to be 80s upon arrival at the ER. Medical History as above Surgical History : Vascular procedure, appendectomy, cataract surgeries, tonsillectomy/adenoidectomy, hemorrhoidectomy Family History : DM Personal/Social history : Past tobacco abuse, occasional EtOH intake, retired meteorologist Admission Exam Per Admitting Provider GENERAL: Slightly uncomfortable, dysarthric (chronic as per patient), slightly hard of hearing, obese, minimal respiratory distress SKIN: Normal color, warm HEENT: Zephyr palpebral conjunctivae, no ptosis, dry buccal mucosa, nasal cannula in place NECK : Supple, short neck, no tenderness CHEST : Decreased breath sounds, no tenderness HEART : Irregular, tachycardic, no obvious murmurs ABDOMEN: Marked distention, nontender : Scrotal and penile swelling EXTREMITIES : Bilateral LE swelling with overlying bullous and blistered lesions minimal tenderness, no other conspicuous deformities noted NEUROLOGIC : Coherent, no facial asymmetry, dysarthric, slightly hard of hearing, gait and stance not assessed Principal Diagnosis Acute on chronic heart failure Volume overload Acute hypoxemic respiratory failure. Discharge Exam Unresponsive, pupils fixed and dilated, no heart sounds, no respiratory sounds, anasarca noted from abdomen below. Discharge Data Allergies Allergy/AdvReac Type Severity Reaction Status Date / Time adhesive tape Allergy Unknown skin Verified 04/15/23 02:10 irritation nutmeg oil (Myristica seed Allergy Unknown Unknown Verified 04/15/23 02:10 oil) lisinopril AdvReac Unknown cough Verified 12/24/14 06:28 UNKNOWN BP MEDICATION Allergy Unknown rash at Uncoded 03/18/14 11:52 ankles Consultations 04/15/23 01:29 ED Decision to Admit Stat 04/15/23 03:41 Consult Dermatology Routine 04/15/23 11:35 Consult Cardiology Routine Consult Urology Routine 04/19/23 03:27 Consult Pulmonology Routine 04/19/23 10:01 Consult Palliative Care Routine Ordered Studies 04/14/23 23:17 CT abd pelvis IV con only Stat CT angio chest PE protocol Stat 04/15/23 07:57 US venous doppler LE BI Urgent 04/15/23 13:30 FL video swallow Routine 04/16/23 13:40 MRI Brain [MR brain wo/w con] Routine Hospital Course (1) Acute on chronic diastolic HF (heart failure): Plan 87-year-old male with PMH chronic diastolic heart failure [2022 TTE with EF of 50 to 54%], A-fib not on anticoagulation 2/2 LGIB, SORAYA on CPAP, pulmonary HTN, PVD status post surgery, Gilbert's syndrome, DVT, chronic lymphedema/stasis dermatitis, prediabetes, melanoma, BPH, past tobacco abuse came in with 1 week history of worsening BLE swelling extending to abdomen and scrotum. Patient denied chest pain or cough. Reported increased shortness of breath on exertion. 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 He denied fevers at presentation. He was being managed for the following: Acute respiratory failure with hypoxemia and hypercapnia Anasarca Acute on chronic heart failure with preserved ejection fraction BLE cellulitis Sepsis POA Concern for aspiration Hematuria, scrotal edema, prostatomegaly Chronic dysarthria Patient's volume overload was not improving as of 04/18 AM despite aggressive diuresis, IV push Lasix was changed into Lasix drip. [of note, pt's son was notified of this transition yesterday morning and notified that patient was not doing very well and about the patient's guarded prognosis. also Lyle was being given almost daily update on the patient's status via phone by myself]. After that transition, he had some good urine output per RN. But later in the evening yesterday, patient went into acute respiratory failure with hypoxia and hypercapnia. Patient was put on BiPAP, pulmonology evaluated in the morning, tapped the right pleural effusion. 1.5 L fluid was taken out, per RN patient was resting comfortably on 6 L oxygen via oxygen max after thoracentesis. Then he was noted unresponsive in his bed per RN and CODE BLUE was immediately vivas d. Cardiology was actively running the CODE BLUE along with power shovel operator help. Patient underwent through multiple CPR and ACLS medications. Patient's son was notified during the code and also after the code was over when ROSC was not achieved. Patient's son was notified that I would be available to speak with him if he has any questions and also if he wants to speak when he is in the hospital. He stated understanding. Resuscitative efforts were terminated after failure to achieve ROSC at 1121 hrs. of 04/19/2023 morning. Cause of : Acute respiratory failure secondary to volume overload secondary to worsening acute on chronic CHF. Please note the above document was generated using voice recognition software. It may contain grammatical, syntax or spelling errors. Any formal questions or concerns about the content, text or information contained within the body of this dictation should be directly addressed to the undersigned for clarification. Home Health Attestation I certify that this patient is under my care and that I, or a physicians per diem physical therapist assistant working with me, had a face to-face encounter that meets the home health [id number] encounter requirements with this patient. The encounter with the patient was in whole, or in part, for the following medical condition, which is the primary reason for home health care (list medical condition): I certify that, based on my findings, the following services are medically necessary home health services: My clinical findings support the need for the above services because: Further, I certify that my clinical findings support that this patient is homebound (i.e. absences from home require considerable and taxing effort and are for medical reasons or muslim services or infrequently or of short duration when for other reasons) because: Certification for Home Health Services: Based on the above findings, I certify that this patient is confined to the home and needs intermittent half-way care, physical therapy and/or speech therapy or continues to need occupational therapy. The patient is under my care, and I have initiated the establishment of the plan of care. This patient will be followed by a physician who will periodically review the plan of care. Total Time Total Time Spent Total Time Spent (In Minutes): 45 Discharge Plan Discharge Items Patient Disposition: Other Date/Time: 04/19/23 11:21
[2023-04-19] MEDS ORDERED: SODIUM CHLORIDE 0.9% 10ML FLUSH IV ONE (16:53)
[2023-04-19] MEDS ORDERED: ATROPINE SULFATE 0.1 MG/ML 10ML SYR IV ONE (16:53)
== END 2023-04-19 16:54 | disposition expired | DRG 291 ==
LOC: ED 20:11 → EDINP 04-15 02:14 → 2S 04-15 04:32